=== PATIENT | female | born 1970 | race Caucasian/White ===

== ENCOUNTER 2016-11-22 17:08 | Emergency (ER) | payer OTHER ==
[2016-11-22 17:23] VITALS: TEMP 97.1
--- NOTE | 2016-11-22 17:28 | ED ---
General Adult HPI - General Chief complaint: Extremity Injury, Lower Stated complaint: R ankle injury Time Seen by Provider: 11/22/16 17:19 Source: patient, EMS, RN notes reviewed Mode of arrival: EMS - History of Present Illness Initial comments: This is a 46-year-old female presents with right ankle pain after a fall today. Patient states she was walking down porch stairs when she slipped on the final step and landed on top of her right foot. Patient states she tried to ambulate after this but immediately fell. Patient denies any loss of consciousness, head injury, neck pain or back pain. Patient states the right ankle is very tender. Patient denies any numbness/tingling or weakness to the right ankle. Patient denies any recent fever, chills, shortness breath, chest pain, abdominal pain, nausea/vomiting/diarrhea, back pain, numbness, tingling, hematuria, headache, or visual changes, or any other complaints. - Related Data Home Medications Medication Instructions Recorded Confirmed ALPRAZolam [Xanax] 0.25 mg PO Q6H PRN 11/22/16 11/22/16 Albuterol Inhaler [Ventolin Hfa 1 - 2 puff INHALATION RT-Q6H PRN 11/22/16 Inhaler] Cholecalciferol [Vitamin D3] 400 unit PO DAILY 11/22/16 11/22/16 Cyclobenzaprine [Flexeril] 10 mg PO TID PRN 11/22/16 11/22/16 Docusate [Colace] 100 mg PO BID PRN 11/22/16 11/22/16 Furosemide [Lasix] 20 mg PO BID 11/22/16 11/22/16 Gabapentin 800 mg PO Q6H 11/22/16 11/22/16 Ibuprofen [Motrin] 600 mg PO Q8H PRN 11/22/16 11/22/16 Levothyroxine Sodium [Synthroid] 100 mcg PO DAILY 11/22/16 11/22/16 Omeprazole 20 mg PO DAILY 11/22/16 11/22/16 Potassium Chloride ER [K-Dur 10] 10 meq PO BID 11/22/16 11/22/16 Pravastatin Sodium [Pravachol] 40 mg PO HS 11/22/16 11/22/16 Topiramate [Topamax] 50 mg PO BID 11/22/16 11/22/16 Venlafaxine HCl ER [Effexor Xr] 75 mg PO DAILY 11/22/16 11/22/16 Venlafaxine HCl [Effexor XR] 150 mg PO DAILY 11/22/16 11/22/16 hydrOXYzine PAMOATE [Vistaril] 100 mg PO TID 11/22/16 11/22/16 traMADol HCL [Ultram] 50 mg PO Q6H PRN 11/22/16 11/22/16 traZODone HCL [Desyrel] 200 mg PO HS 11/22/16 11/22/16 Previous Rx's Medication Instructions Recorded HYDROcodone/APAP 7.5-325MG [Austin 1 - 2 tab PO Q6HR #30 tab 11/22/16 7.5-325] Allergies Allergy/AdvReac Type Severity Reaction Status Date / Time acetaminophen AdvReac Itching Verified 11/22/16 18:12 [From Tylenol-Codeine #3] codeine AdvReac Itching Verified 11/22/16 18:12 [From Tylenol-Codeine #3] Penicillins AdvReac Rash/Hives Verified 11/22/16 18:12 Review of Systems ROS Statement: Those systems with pertinent positive or pertinent negative responses have been documented in the HPI. ROS Other: All systems not noted in ROS Statement are negative. Past Medical History Past Medical History: Thyroid Disorder Additional Past Medical History / Comment(s): CHF, fibromyalgia History of Any Multi-Drug Resistant Organisms: None Reported Past Surgical History: Cholecystectomy, Hysterectomy Past Psychological History: Anxiety, Bipolar, Depression, Schizophrenia Smoking Status: Current every day smoker Past Alcohol Use History: None Reported Past Drug Use History: Marijuana General Exam - General Exam Comments Initial Comments: General: The patient is awake and alert, in no distress, and does not appear acutely ill. Neck: The neck is supple, there is no tenderness or JVD. No cervical midline tenderness. Cardiovascular: There is a regular rate and rhythm. No murmur, rub or gallop is appreciated. Respiratory: Lungs are clear to auscultation, respirations are non-labored, breath sounds are equal. No wheezes, stridor, rales, or rhonchi. Musculoskeletal: There is a deformity to the medial aspect of the right ankle. There is tenderness to the medial and lateral aspects of the right ankle into the lateral aspect of the right foot. There is swelling and ecchymosis to the right ankle joint. Dorsalis pedis pulses 2+ bilaterally. Capillary refill is normal at less than 2 seconds. Patient has full range of motion of the right toes. Sensation intact. There is good coloring to the right foot. Neurological: A&O x 3. CN II-XII intact, There are no obvious motor or sensory deficits. Coordination appears grossly intact. Speech is normal. Skin: Skin is warm and dry and no rashes or lesions are noted. Psychiatric: Normal mood and affect. Course Vital Signs 11/22/16 11/22/16 11/22/16 17:15 18:13 19:33 Temperature 97.1 F L Pulse Rate 73 78 68 Respiratory 16 16 18 Rate Blood Pressure 117/81 110/75 146/67 O2 Sat by Pulse 98 98 98 Oximetry 11/22/16 11/22/16 11/22/16 19:38 19:41 19:45 Temperature Pulse Rate 71 75 73 Respiratory 16 16 16 Rate Blood Pressure 117/71 99/51 106/58 O2 Sat by Pulse 98 100 100 Oximetry 11/22/16 11/22/16 19:50 20:38 Temperature 97.1 F L Pulse Rate 76 79 Respiratory 16 16 Rate Blood Pressure 100/56 116/77 O2 Sat by Pulse 100 97 Oximetry Procedures - Procedures Initial comment: Procedural sedation was done before reduction. Risks were explained and consent obtained. Patient was on monitor with respirations being monitored and respiratory therapist was present. Reduction performed by myself with Dr. Clark present. 80 mg propofol were used to achieve sedation. Adequate sedation obtained. No complications. No blood loss. Time out was done before hand to ensure proper extremity. Reduction was done and patient was splinted with short leg posterior ocl splint. Neurovascular was rechecked and intact after splinting. Medical Decision Making - Medical Decision Making This is a 46-year-old female presents with right ankle pain and deformity. On physical exam there is a deformity to the medial aspect of the right ankle. There is tenderness to the medial and lateral aspects of the right ankle and to the lateral aspect of the right foot. There is swelling and ecchymosis to the right ankle joint. Dorsalis pedis pulses 2+ bilaterally. Capillary refill is normal at less than 2 seconds. Patient has full range of motion of the right toes. Sensation intact. There is good coloring to the right foot. Patient arrived by EMS and was given 4 of morphine during her trip. Days of the right foot and right ankle were done and reviewed showing: X-ray right ankle: Bimalleolar fracture of the right ankle with significant lateral and posterior displacement of the talus. Report per Dr. Desir X-ray right foot: Ankle fracture. No fracture identified. Report read by Dr. Desir. Procedural sedation was used and right ankle was reduced. Postreduction films were done and review showing: There is satisfactory reduction of the trimalleolar fracture of the right ankle. Report read by Dr. Desir.. A short leg posterior OCL splint to the right lower extremity was placed. Neurovascular was rechecked and is intact. Patient was instructed to stay non- weightbearing to the right lower extremity. Patient was instructed to rest, ice , elevate and keep splint on until follow-up with orthopedics. Patient will be given crutches. Patient was given a prescription for Austin for pain. Discussed with patient to follow-up with orthopedics tomorrow or as soon as possible Please return to the [facility] symptoms worsen or for any other concerns. Patient was receptive to this plan and patient will be discharged home. I discussed his case with attending physician Dr. Clark who also examined the patient and agrees the plan as stated above. Disposition Clinical Impression: Bimalleolar fracture of right ankle Disposition: HOME SELF-CARE Instructions: Ankle Fracture (ED), Splint Care (ED) Additional Instructions: Please rest, ice, elevate, and use splint for support. Please do not get splint wet. Please stay nonweightbearing to the right lower extremity and use crutches. Please use Austin as prescribed. Medication may make you drowsy please do not drive or drink alcohol using Austin. Please follow up with orthopedics tomorrow or as soon as possible. Please return to the [facility] for any worsening symptoms or for any further concerns. Prescriptions: HYDROcodone/APAP 7.5-325MG [Austin 7.5-325] 1 - 2 tab PO Q6HR #30 tab Referrals: Frederic Guthrie MD [Primary Care Provider] - 1-2 days Fabian Lopez DO [Doctor of Osteopathic Medicine] - 1-2 days
--- NOTE | 2016-11-22 17:50 | XR ---
EXAMINATION TYPE: XR ankle limited RT DATE OF EXAM: 11/22/2016 5:44 PM COMPARISON: NONE HISTORY: Ankle pain TECHNIQUE: 2 views FINDINGS: There is transverse fracture of the medial and lateral malleolus. There is more than 1 cm o f lateral displacement of the talus. There is a 1 cm posterior displacement of the talus as well. The re is no dislocation. IMPRESSION: Bimalleolar fracture of the right ankle with significant lateral and posterior displaceme nt of the talus.
--- NOTE | 2016-11-22 17:51 | XR ---
EXAMINATION TYPE: XR foot limited RT DATE OF EXAM: 11/22/2016 5:44 PM COMPARISON: NONE HISTORY: Pain and fall TECHNIQUE: 2 views FINDINGS: Metatarsals are intact. The toes are intact. Tarsal bones are intact. There is bimalleolar fracture of ankle noted. IMPRESSION: Ankle fracture. No foot fracture identified.
[2016-11-22] MEDS ORDERED: HYDROmorphone 1 MG/ML 1 ML SYRINGE IVP STA (18:02)
[2016-11-22] MEDS ORDERED: ONDANSETRON 4 MG/2 ML VIAL IVP STA (18:02)
[2016-11-22] MEDS ORDERED: SODIUM CHLORIDE 0.9% 1,000 ML IV STA (19:06)
[2016-11-22] MEDS ORDERED: PROPOFOL 10 MG/ML 20 ML VIAL IV STA (19:06)
[2016-11-22 19:41] VITALS: RESP 16
--- NOTE | 2016-11-22 20:20 | XR ---
EXAMINATION TYPE: XR ankle limited RT DATE OF EXAM: 11/22/2016 8:00 PM COMPARISON: Today HISTORY: Fracture Findings: 2 views through the cast were obtained and show a trimalleolar fracture of the ankle. There is a 2 x 1 cm posterior malleolus tip fracture. There is reasonable anatomic reduction of the talus. Fragments are in reasonable anatomic position. There is a few millimeter lateral subluxation of the talus. Conclusion : There is satisfactory reduction of the trimalleolar fracture of the right ankle.
[2016-11-22 20:42] VITALS: BP 116/77; PULSE 79
== END 2016-11-22 20:42 | disposition home or self-care (01) ==
LOC: EC 17:08
DX: S82.841A Displaced bimalleolar fracture of right lower leg, initial encounter for closed fracture (principal); W10.9XXA Fall (on) (from) unspecified stairs and steps, initial encounter; E07.9 Disorder of thyroid, unspecified; M79.7 Fibromyalgia; I50.9 Heart failure, unspecified; F41.9 Anxiety disorder, unspecified; F20.9 Schizophrenia, unspecified; F32.9 Major depressive disorder, single episode, unspecified; Z79.899 Other long term (current) drug therapy; Z88.6 Allergy status to analgesic agent; Z88.5 Allergy status to narcotic agent; Z88.0 Allergy status to penicillin; F17.200 Nicotine dependence, unspecified, uncomplicated
CPT/HCPCS: 99152; 99284; 27810; 73600; 73620; J2405; J1170; J2704

== ENCOUNTER 2016-12-09 11:56 | Observation (INO) | payer OTHER ==
[2016-12-08 08:37] VITALS: BMI 29.1
[~2016-12-09 11:56] MED LIST: ceFAZolin 2 GM in SODIUM CHLORIDE 0.9% 100 ML IVPB ONE
[2016-12-09] MEDS ORDERED: LIDOCAINE 1% 20 ML VIAL (10MG/ML) FOR IV START INTRADERMA ONE (12:50)
[2016-12-09] MEDS ORDERED: LACTATED RINGERS 1,000 ML IV ONE ×2 (12:50→15:03)
[2016-12-09] MEDS ORDERED: DEXAMETHASONE SOD PHOS (MDV) 100 MG/10 ML VIAL IV ONE (12:51)
[2016-12-09] MEDS ORDERED: ONDANSETRON 4 MG/2 ML VIAL IVP ONE (12:51)
[2016-12-09] MEDS ORDERED: MIDAZOLAM 2 MG/2 ML VIAL IV ONE (12:59)
[2016-12-09 13:14] LABS: Potassium 4.8 mmol/L (3.5-5.1)
[2016-12-09 13:26] LABS: Aty Lym Flag Slight; CH 29.3; CHCM 32.6; HCT 42.7 % (34.0-46.0); HDW 2.63; HGB 13.6 gm/dL (11.4-16.0); MCH 28.9 pg (25.0-35.0); MCHC 31.9 g/dL (31.0-37.0); MCV 90.5 fL (80.0-100.0); Mean Platelet Volume 6.7; RBC 4.72 m/uL (3.80-5.40); RDW 15.6 % (11.5-15.5); WBC 7.7 k/uL (3.8-10.6); WBC (Perox) 7.81
[2016-12-09 13:39] LABS: Add Differential Manual Differential
[2016-12-09 13:41] LABS: Manual Review Performed; Nucleated Red Blood Cells 0 /100 WBC (0-0); Total Cells Counted 100
[2016-12-09] MEDS ORDERED: ROPIVACAINE 5 MG/ML 30 ML VIAL ONE (13:52)
[2016-12-09] MEDS ORDERED: fentaNYL (PF) 50 MCG/ML 2 ML AMP ONE (13:52)
[2016-12-09] MEDS ORDERED: PHENYLEPHRINE-0.9% NACL SYG 1 MG/10 ML SYRINGE ONE (13:52)
[2016-12-09] MEDS ORDERED: SUCCINYLCHOLINE CHLORIDE 100 MG/5 ML SYR IV ONE (13:52)
[2016-12-09] MEDS ORDERED: MIDAZOLAM 2 MG/2 ML VIAL ONE (13:52)
[2016-12-09] MEDS ORDERED: LIDOCAINE 1% INJ 10MG/ML (20 ML MDV) ONE (13:52)
[2016-12-09] MEDS ORDERED: HYDROmorphone (PF) 1 MG/ML ONE (13:52)
[2016-12-09] MEDS ORDERED: PROPOFOL 10 MG/ML 20 ML VIAL IV ONE (13:52)
[2016-12-09] MEDS ORDERED: ONDANSETRON 4 MG/2 ML VIAL ONE (13:52)
[2016-12-09] MEDS ORDERED: LIDOCAINE 2%-EPI 1:100,000 20 ML VIAL ONE (13:52)
[2016-12-09] MEDS ORDERED: SODIUM CHLORIDE 0.9% 100 ML with CLINDAMYCIN 600 MG IV ONE ×2 (14:08)
[2016-12-09] MEDS ORDERED: CLINDAMYCIN 600 MG in SODIUM CHLORIDE 0.9% 1,000 ML IRRIGATION ONE (14:35)
[2016-12-09] MEDS ORDERED: diphenhydrAMINE 25 MG CAP PO PRN (16:18)
[2016-12-09] MEDS ORDERED: ONDANSETRON 4 MG/2 ML VIAL IVP PRN (16:18)
[2016-12-09] MEDS ORDERED: TEMAZEPAM 15 MG CAP PO PRN (16:18)
[2016-12-09] MEDS ORDERED: hydrOXYzine PAMOATE 25 MG CAP PO PRN (16:18)
[2016-12-09] MEDS ORDERED: SENNOSIDES-DOCUSATE SODIUM 1 EACH TAB PO PRN (16:18)
[2016-12-09] MEDS ORDERED: HYDROmorphone 1 MG/ML 1 ML SYRINGE IVP PRN (16:18)
[2016-12-09] MEDS ORDERED: HYDROmorphone 1 MG/ML 1 ML SYRINGE IVP ONE ×2 (16:23→16:26)
--- NOTE | 2016-12-09 16:23 | XR ---
EXAMINATION TYPE: XR ankle limited RT 1 view DATE OF EXAM: 12/09/2016 3:49 PM COMPARISON: NONE HISTORY: Post op FINDINGS: There is postsurgical change in near anatomic alignment. There is soft tissue edema and emphysema. IMPRESSION: 1. Postoperative change. Appears in near-anatomic alignment
--- NOTE | 2016-12-09 16:25 | FL ---
EXAMINATION TYPE: FL guidance operating room DATE OF EXAM: 12/09/2016 3:49 PM FLUOROSCOPY Fluoroscopy time of 95 seconds was used during ORIF right ankle. 2 image/s document/s the procedure.
--- NOTE | 2016-12-09 16:42 | P.OP ---
Date of Procedure: 12/09/16 Preoperative Diagnosis: 1. Closed right bimalleolar ankle fracture 2. History of current tobacco use 3. History of current marijuana use 4. Noncompliance Postoperative Diagnosis: 1. Closed right trimalleolar ankle fracture 2. History of current tobacco use 3. History of current marijuana use 4. Noncompliance Procedure(s) Performed: 1. Open reduction internal fixation of right ankle fracture (open reduction and internal fixation of right lateral and medial malleolus, nonoperative management of right posterior malleolus fracture) 2. Manual application of joint stress by physician for radiography Anesthesia: KALPANA Surgeon: Zheng Rao Crewman [employer]1: Beverley Alcala Estimated Blood Loss (ml): 15 IV fluids (ml): 1,000 Pathology: none sent Condition: stable Disposition: PACU Indications for Procedure: The patient is a 46-year-old female with multiple medical problems including current smoking cigarettes and marijuana who sustained a fall little over 2 weeks ago resulting in a closed right trimalleolar ankle fracture. The patient was seen in the emergency department at [facility] where a closed reduction was performed. The patient was discharged with instructions to follow -up in our office several days later. She did not show up for over a week at which point she had been walking in her cast. The cast was visibly dirty and falling apart. The cast was taken down and the patient had multiple fracture blisters laterally. The fracture blisters were unroofed and a Silvadene cream was applied. The patient was also started on Bactrim. She had a closed reduction and splinting performed in the office. The patient was instructed to remain nonweightbearing and elevate her leg. She was seen again in the office this week which point her soft tissue appeared amenable for surgery. Unfortunately the patient has continued to walk on her cast despite being told she is to remain strictly nonweightbearing. I do lengthy discussion with the patient on the potential risks and complication of surgery including but not limited to risks from anesthesia, risk of superficial or deep infection, risk of delayed wound healing, risk of wound necrosis, risk of need for plastic surgery for coverage due to wound breakdown, risk of fracture malunion, risk of fracture nonunion, risk of symptomatically hardware, risk of posttraumatic arthritis, risk of chronic pain, risk of chronic swelling, risk of need for further surgery, and possibly loss of limb. The patient understands that she is at a much higher risk of having a Occasion due to her history of cigarette and marijuana use. She was also instructed that he is to remain strictly nonweightbearing on her right leg. His was stressed multiple times in the office that in the postoperative period she is to remain strictly nonweightbearing for at least 6 weeks. The patient voiced that she doesn't think she'll be able to do this and I again discussed the possibility of having displacement of her fracture, wound healing problems and ultimately loss of her leg. The patient voiced her understanding of this Operative Findings: The distal fibula fracture was comminuted. There were multiple anterior loose fragments in the distal fibula preventing compression and a lag screw at the fracture site. Description of Procedure: The patient is in preoperative holding and the correct right left was marked with my initials. I reviewed the consent form with the patient and all of her questions were answered. The patient was then brought back to the operating room. She was transferred onto the operating room table and all bony prominences were well-padded. A general anesthetic was administered. She was given preoperative antibiotics. A tourniquet was applied to the proximal aspect of the right thigh. All bony prominences were padded and her left leg was secured to the able with egg foam and tape. A bone foam ramp was placed under her right buttock and leg. The patient's right leg was then prepped and draped in the standard sterile fashion. Prior to starting surgery timeout was performed identifying the correct patient, operative extremity, and procedure. The patient's leg was then elevated, exsanguinated with an Esmarch bandage and the tourniquet was inflated to 250 mmHg. A 10 cm incision was marked out over the distal aspect of the fibula. Skin incision was made with 15 blade scalpel and dissection was carried down carefully through the subcutaneous tissue to the periosteum over the distal fibula. The fracture site was circumferentially exposed. There was abundant scar tissue and early callus suggesting that her fracture may have been older then 2 weeks. The fracture site was debrided. There were 3 or 4 large loose fragments of bone anteriorly. The fibula was then pulled out to length and clamped. There was a large void over the anterior distal fibula at the site of comminution. An 8 hole one third tubular plate was then placed over the lateral aspect of the distal fibula. Arturo 35 screw was placed in the fifth hole of the plate just proximal to the fracture bringing the plate down to the lateral aspect of the fibula. Another 35 screw was placed in the most proximal hole of the plate. 235 screws were then placed distally into the distal fragment. C-arm was brought in to verify reduction of the fibula and placement of the hardware. The fibula appeared to be out to length and the medial clear space was reduced. I then proceeded to place 3 syndesmotic screws due to the patient's noncompliance and likelihood of early weightbearing following surgery. 3 fully threaded 3.5 mm screws were placed through both cortices of the tibia. There was a large void in the distal fibula after plating. The previously removed free bony fragments were then ground up with a rongeur and placed in the defect. A 5 cm longitudinal incision was then made over the distal aspect of the medial malleolus. Skin incision was made with a 15 blade scalpel and dissection was carried down carefully to the periosteum over the medial malleolus which was incised longitudinally in line with the skin incision. The fracture site was gently opened and debrided. The wound was irrigated and the joint inspected. On millimeter drill bit was used to create a single hole in the distal metaphysis of the tibia proximal to the fracture. 1 darrick of a pointed reduction clamp was placed in this hole and the other darrick was placed at the tip of the medial malleolus. The reduction clamp was then closed nicely compressing the fracture. K wires were then placed anterior and posterior to the darrick at the distal tip of the medial malleolus. There position was verified with C-arm fluoroscopy and then 3.0 mm cannulated screws were placed. The wires were then removed. Final fluoroscopy shots were taken including a mortise and lateral view. The mortise view showed the fibula out to length, the talus was well reduced within the ankle mortise, there was no widening of the medial clear space or at the incisor a. Hardware appeared to be in except we'll position. Lateral x-ray of the ankle showed the talus centered under the tibial plafond. There was a small minimally displaced posterior malleolus fracture but no posterior subluxation of the talus. Both wounds were then copiously irrigated. The deep periosteal layer over the fibula was closed with a running 0 Vicryl stitch. The deep subcu was closed with interrupted 2-0 Vicryl the skin was closed with a running Monocryl. Medially the deep subcu was reapproximated using 2-0 Vicryl and the skin was closed with a running Monocryl. Dermabond was placed over both incisions followed by sterile dressing. The tourniquet was let down. A sterile dressing consisting of Adaptic 4 x 4 ABDs and web rolls was applied. The drapes were then taken down and a very well-padded bulky Dexter type splint was placed. The patient was then transferred from the operating room table, her anesthetic was reversed, and she was brought to PACU having tolerated the procedure well. At the end of surgery all instrument, sponge, and sharp counts were correct. Plan: The patient will be admitted for IV antibiotics and a social work consultation for placement due to her multiple medical problems and noncompliance. She is remain strictly nonweightbearing on her right leg for at least 6 weeks. She will be treated with Lovenox in-house for DVT prophylaxis and will discharge home on aspirin 325 mg twice a day. We will treat her with 48 hours of IV antibiotics. She can discharge once her pain is controlled and social work is arranged discharge plans.
[2016-12-09 18:03] LABS: Basophils % (A) 0 %; CH 29.4; CHCM 32.7; Eosinophils % (A) 0 %; HCT 38.4 % (34.0-46.0); HDW 2.61; HGB 12.5 gm/dL (11.4-16.0); Luc # (Auto) 0.16; Luc % (Auto) 2; Lymphocytes # (A) 0.9 k/uL (1.0-4.8); Lymphocytes % (A) 11 %; MCH 29.4 pg (25.0-35.0); MCHC 32.5 g/dL (31.0-37.0); MCV 90.5 fL (80.0-100.0); Mean Platelet Volume 6.8; Monocytes # (A) 0.3 k/uL (0-1.0); Monocytes % (A) 3 %; Neutrophils # (A) 6.9 k/uL (1.3-7.7); Neutrophils % (A) 83 %; RBC 4.24 m/uL (3.80-5.40); RDW 15.6 % (11.5-15.5); WBC 8.3 k/uL (3.8-10.6); WBC (Perox) 8.76
[2016-12-09] MEDS ORDERED: CYCLOBENZAPRINE 10 MG TAB PO PRN (18:20)
[2016-12-09] MEDS ORDERED: DOCUSATE 100 MG CAP PO PRN (18:20)
[2016-12-09] MEDS ORDERED: ALPRAZolam 0.25 MG TAB PO PRN (18:20)
[2016-12-09] MEDS ORDERED: HYDROcodone/APAP 7.5-325MG 1 EACH TAB PO PRN (18:24)
[2016-12-09] MEDS ORDERED: ALBUTEROL NEBULIZED 2.5 MG/3 ML INHALATION PRN (18:30)
[2016-12-09] MEDS: POTASSIUM CHLORIDE ER 10 MEQ TAB.ER.PRT PO SCH (20:06)
[2016-12-09] MEDS: traZODone HCL 100 MG TAB PO SCH (20:06)
[2016-12-09] MEDS: PRAVASTATIN SODIUM 40 MG TAB PO SCH (20:06)
[2016-12-09] MEDS: FUROSEMIDE 20 MG TAB PO SCH (20:06)
[2016-12-09] MEDS: TOPIRAMATE 25 MG TAB PO SCH (20:06)
[2016-12-09] MEDS: GABAPENTIN 400 MG CAP PO SCH (20:06)
[2016-12-09] MEDS: traMADol 50 MG TAB PO SCH ×2 (20:07→22:08)
[2016-12-09] MEDS: LACTATED RINGERS 1,000 ML IV SCH (20:09)
[2016-12-09] MEDS: hydrOXYzine PAMOATE 25 MG CAP PO SCH (21:58)
[2016-12-10] MEDS: CLINDAMYCIN 900 MG in DEXTROSE 5% IN WATER 50 ML IVPB SCH ×8 (01:04→23:59)
[2016-12-10] MEDS: GABAPENTIN 400 MG CAP PO SCH ×6 (01:15→22:26)
[2016-12-10] MEDS: HYDROcodone/APAP 7.5-325MG 1 EACH TAB PO SCH ×2 (01:15→07:28)
[2016-12-10] MEDS: LACTATED RINGERS 1,000 ML IV SCH ×2 (03:45→19:54)
[2016-12-10] MEDS: LEVOTHYROXINE 100 MCG TAB PO SCH (06:26)
[2016-12-10] MEDS: PANTOPRAZOLE 40 MG TABLET PO SCH (07:29)
[2016-12-10] MEDS: TOPIRAMATE 25 MG TAB PO SCH ×2 (09:15→21:16)
[2016-12-10] MEDS: VENLAFAXINE HCL ER 150 MG CAP PO SCH (09:16)
[2016-12-10] MEDS: CALCIUM CARBONATE 500 MG CHEWABLE PO SCH ×3 (09:16→21:16)
[2016-12-10] MEDS: FUROSEMIDE 20 MG TAB PO SCH ×2 (09:16→21:16)
[2016-12-10] MEDS: POTASSIUM CHLORIDE ER 10 MEQ TAB.ER.PRT PO SCH ×2 (09:16→21:16)
[2016-12-10] MEDS: CHOLECALCIFEROL 400 UNIT TAB PO SCH (09:16)
[2016-12-10] MEDS: ENOXAPARIN 40 MG/0.4 ML SYRINGE SQ SCH (09:17)
[2016-12-10] MEDS: traMADol 50 MG TAB PO SCH ×4 (09:17→22:27)
[2016-12-10] MEDS: VENLAFAXINE HCL ER 75 MG CAP PO SCH (09:18)
--- NOTE | 2016-12-10 09:24 | P.PN ---
Subjective Patient has no complaints this morning. Her pain is well-controlled in her right ankle. She denies chest pain or shortness of breath. Objective - Vital Signs Vital signs: Vital Signs Temp 97.5 F L 12/10/16 07:54 Pulse 94 12/10/16 07:54 Resp 16 12/10/16 07:54 BP 111/56 12/10/16 07:54 Pulse Ox 96 12/10/16 07:54 Intake & Output 12/09/16 12/10/16 12/10/16 18:59 06:59 18:59 Intake Total 2308 2200 240 Output Total 15 850 Balance 2293 1350 240 Weight 78 kg Intake: IV 2308 1300 Clindamycin 900 mg In 100 Dextrose 5% in Water 50 ml @ 100 mls/hr IVPB Q8HR TR Rx#:[id number] Lactated Ringers 1,000 ml 1200 @ 100 mls/hr IV .Q10H TR Rx#:[id number] Intake, IV Titration 400 Amount Lactated Ringers 1,000 ml 400 @ 100 mls/hr IV .Q10H TR Rx#:[id number] Oral 500 240 Output: Urine 850 Estimated Blood Loss 15 Other: Voiding Method Bedpan # Voids 1 1 - Exam Patient is in no apparent distress and is alert and oriented. On exam the right leg she has a clean-appearing bulky Dexter splint. Her toes are warm and well perfused with brisk capillary refill. She can actively plantarflex and dorsiflex her toes. She has no pain with passive range of motion of her toes. Sensation is slightly decreased and her toes consistent with having a popliteal nerve block. - Labs CBC & Chem 7: 12/09/16 17:47 12/09/16 12:45 Labs: Abnormal Lab Results - Last 24 Hours (Table) 12/09/16 12/09/16 Range/Units 12:45 17:47 RDW 15.6 H 15.6 H (11.5-15.5) % Plt Count 637 H 532 H (150-450) k/uL Lymphocytes # 0.9 L (1.0-4.8) k/uL Assessment and Plan (1) Trimalleolar fracture of ankle, closed Status: Acute Plan: Postoperative day #1 status post right ankle ORIF, doing well 1. Strict nonweightbearing right lower extremity, ice and elevate 2. 48 hours postoperative antibiotics 3. DVT prophylaxis with Lovenox in-house, discharge home on aspirin 325 mg twice a day 2 weeks 4. Physical therapy for crutch training 5. Social work for discharge planning due to patient's noncompliance and unreliable home situation 6. Calcium carbonate 500 mg 3 times a day and vitamin D3 2000 units daily for bone health area and vitamin D lab pending 7. Anticipate the patient will likely be in the hospital over the weekend awaiting social work evaluation and discharge planning 8. Encouraged smoking cessation
[2016-12-10] MEDS: hydrOXYzine PAMOATE 25 MG CAP PO SCH ×3 (09:25→22:27)
[2016-12-10] MEDS: HYDROmorphone 1 MG/ML 1 ML SYRINGE IVP PRN ×4 (10:41→23:23)
[2016-12-10] MEDS: NICOTINE 21MG/24HR PATCH TRANSDERM SCH (12:51)
[2016-12-10] MEDS: CHOLECALCIFEROL 1,000 UNIT TAB PO SCH (13:21)
[2016-12-10] MEDS: HYDROcodone/APAP 7.5-325MG 1 EACH TAB PO PRN ×2 (13:22→20:00)
--- NOTE | 2016-12-10 14:34 | CONS ---
DATE OF CONSULTATION: REASON FOR CONSULTATION: Management of chronic medical conditions. HISTORY OF PRESENT ILLNESS: Ms. Mi is a 46-year-old female with the past medical history of congestive heart failure, fibromyalgia, GERD, thyroid disorder admitted to the hospital for recheck of her right ankle fracture. The patient was evaluated by orthopedics and she had a right ankle open reduction internal fixation. She is postop day one. She had trimalleolar ankle fracture. The patient does have a past medical history of congestive heart failure, fibromyalgia and thyroid disorder. She states that she is compliant with her medications. Currently she is lying comfortably in the bed, appears to be in no acute distress. She does not have any complaints. REVIEW OF SYSTEMS: CONSTITUTIONAL: Denies having any fever, chills or rigors. RESPIRATORY: No cough. No difficulty in breathing. CARDIAC: No chest pain. No palpitations. GI: No abdominal pain, nausea, vomiting, or diarrhea. : No dysuria or hematuria. HEMATOLOGICAL: No history of easy bruising or recurrent infections. IMMUNOLOGY/ALLERGY: No history of allergies. MUSCULOSKELETAL: Patient has a right ankle fracture. ENDOCRINE: Positive for thyroid disorder. All 13 review of systems are done and negative except for the ones mentioned in the HPI. Past medical history is positive for congestive heart failure, fibromyalgia, GERD/reflux, thyroid disorder. PAST SURGICAL HISTORY: Cholecystectomy, hysterectomy. PAST PSYCHOLOGICAL HISTORY: Has history of anxiety, bipolar disorder, depression and schizophrenia. SOCIAL HISTORY: She is a current everyday smoker and smokes almost 1 pack a day and has been smoking for the past 30 years and uses marijuana occasionally. Family history is positive for hypertension. Allergies to PENICILLIN, ACETAMINOPHEN and CODEINE. PATIENT'S HOME MEDICATIONS: She is on potassium chloride 10 mEq p.o. b.i.d., trazodone 200 mg p.o. q.h.s., hydroxyzine 100 mg p.o. 3 times a day, omeprazole 20 mg p.o. daily, Lasix 20 mg p.o. b.i.d., pravastatin 40 mg p.o. q.h.s., levothyroxine 100 mcg p.o. daily, gabapentin 800 mg p.o. q.6 hours, Colace 100 mg p.o. b.i.d., tramadol 50 mg p.o. q.h.s., topiramate 50 mg p.o. b.i.d., cholecalciferol 400 units p.o. . daily, albuterol 1 puff q.6 hours p.r.n. for shortness of breath, ibuprofen 600 mg p.o. q.6 hours p.r.n. for pain, cyclobenzaprine 10 mg p.o. 3 times a day p.r.n. for muscle spasm, Xanax 0.25 mg p.o. q.6 hours p.r.n. for anxiety, venlafaxine, Effexor, 150 mg capsule p.o. q.a.m. and [place] 7.5/325 one to two tablets q.6 hours p.r.n. for pain. On examination, patient's vital signs temperature 97.5, heart rate 94, respiratory rate 16, blood pressure 111/56, saturating at 96% on room air. GENERAL EXAMINATION: The patient appears to be in no acute distress. HEAD: Atraumatic, normocephalic. EYES: Pupils round and reactive to light. No pallor. No icterus. NECK: No JVD. No thyromegaly. CARDIOVASCULAR: S1 and S2 heard. RESPIRATORY: Positive for breath sounds bilaterally. The patient has bilateral lower lobe crackles. No wheezes. GI: Abdomen is soft, nontender, no organomegaly. Bowel sounds are positive. EXTREMITIES: No edema. Right lower extremity is in a cast SKIN: Patient has flea bites all over her upper extremities. Patient's labs: White count of 8.3, hemoglobin is 12.5, platelets of 532. Sodium 141, potassium 4.8, chloride 103, bicarb 24, BUN not available. ASSESSMENT AND PLAN: 1. Status post right ankle open reduction internal fixation postoperative day one. 2. History of congestive heart failure with unknown ejection fraction. 3. Fibromyalgia. 4. Gastroesophageal reflux disease. 5. Thyroid disorder. 6. Anxiety. 7. Bipolar disorder. 8. Depression. 9. Schizophrenia. 10. Chronic nicotine dependence. PLAN: The patient has bilateral basilar crackles so will discontinue her IV fluids and will resume her home medications and DVT prophylaxis as per primary care team management. Will continue to follow the patient. Thank you for the consult.
[2016-12-10] MEDS: traZODone HCL 100 MG TAB PO SCH (21:16)
[2016-12-10] MEDS: PRAVASTATIN SODIUM 40 MG TAB PO SCH (21:16)
[2016-12-11] MEDS: HYDROcodone/APAP 7.5-325MG 1 EACH TAB PO SCH (02:48)
[2016-12-11] MEDS: LACTATED RINGERS 1,000 ML IV SCH (04:20)
[2016-12-11] MEDS: HYDROcodone/APAP 7.5-325MG 1 EACH TAB PO PRN ×4 (04:21→20:33)
[2016-12-11] MEDS: HYDROmorphone 1 MG/ML 1 ML SYRINGE IVP PRN ×2 (06:01→11:05)
[2016-12-11] MEDS: LEVOTHYROXINE 100 MCG TAB PO SCH (06:03)
[2016-12-11 07:45] LABS: Anion Gap 7 mmol/L; Blood Urea Nitrogen 8 mg/dL (7-17); Calcium 8.8 mg/dL (8.4-10.2); Carbon Dioxide 29 mmol/L (22-30); Chloride 103 mmol/L (98-107); Glucose 108 mg/dL (74-99); Non-African American GFR(MDRD) >60 (>60 ml/min/1.73 sqM); Potassium 4.2 mmol/L (3.5-5.1); Sodium 139 mmol/L (137-145)
[2016-12-11 08:12] LABS: Basophils # (A) 0.1 k/uL (0-0.2); Basophils % (A) 1 %; CH 29.2; CHCM 31.7; Eosinophils # (A) 0.3 k/uL (0-0.7); Eosinophils % (A) 3 %; HCT 33.3 % (34.0-46.0); HDW 2.54; HGB 10.4 gm/dL (11.4-16.0); Hypochromasia Slight; Luc # (Auto) 0.43; Luc % (Auto) 4; Lymphocytes # (A) 2.6 k/uL (1.0-4.8); Lymphocytes % (A) 26 %; MCHC 31.4 g/dL (31.0-37.0); MCV 92.5 fL (80.0-100.0); Monocytes # (A) 0.9 k/uL (0-1.0); Monocytes % (A) 9 %; Neutrophils # (A) 5.8 k/uL (1.3-7.7); Neutrophils % (A) 58 %; RDW 15.6 % (11.5-15.5); WBC (Perox) 10.52
[2016-12-11] MEDS: VENLAFAXINE HCL ER 150 MG CAP PO SCH (09:20)
[2016-12-11] MEDS: CALCIUM CARBONATE 500 MG CHEWABLE PO SCH ×3 (09:20→20:32)
[2016-12-11] MEDS: POTASSIUM CHLORIDE ER 10 MEQ TAB.ER.PRT PO SCH ×2 (09:20→20:31)
[2016-12-11] MEDS: VENLAFAXINE HCL ER 75 MG CAP PO SCH (09:20)
[2016-12-11] MEDS: CHOLECALCIFEROL 400 UNIT TAB PO SCH (09:20)
[2016-12-11] MEDS: PANTOPRAZOLE 40 MG TABLET PO SCH (09:20)
[2016-12-11] MEDS: TOPIRAMATE 25 MG TAB PO SCH ×2 (09:20→20:32)
[2016-12-11] MEDS: NICOTINE 21MG/24HR PATCH TRANSDERM SCH (09:20)
[2016-12-11] MEDS: ENOXAPARIN 40 MG/0.4 ML SYRINGE SQ SCH (09:20)
[2016-12-11] MEDS: FUROSEMIDE 20 MG TAB PO SCH ×2 (09:21→20:32)
--- NOTE | 2016-12-11 09:55 | P.PN ---
Subjective Principal diagnosis: Status post right ankle ORIF This is a 46 year-old female post right ankle ORIF. This is post-op day 2. The patient was evaluated at the bedside today. The patient denies nausea, vomiting, abdominal pain, shortness of breath, and chest pain this morning. She states her pain is controlled at this time. The patient was up with physical therapy this morning. Objective - Vital Signs Vital signs: Vital Signs Temp 98.3 F 12/11/16 07:47 Pulse 89 12/11/16 07:47 Resp 14 12/11/16 07:47 BP 95/70 12/11/16 07:47 Pulse Ox 97 12/11/16 07:47 Intake & Output 12/10/16 12/11/16 12/11/16 18:59 06:59 18:59 Intake Total 1180 900 240 Balance 1180 900 240 Intake: IV 100 Clindamycin 900 mg In 100 Dextrose 5% in Water 50 ml @ 100 mls/hr IVPB Q8HR [facility] Rx#:[id number] Oral 1180 800 240 Other: Voiding Method Bedpan Bedpan # Voids 1 3 - Exam The patient does not appear in acute distress. Alert and orientated x3. Dressing and splint is clean, dry and intact. She is able to wiggle her toes freely. No pain on passive ROM of her toes. Sensation and circulatory status is intact. - Labs CBC & Chem 7: 12/11/16 06:42 12/11/16 06:42 Labs: Abnormal Lab Results - Last 24 Hours (Table) 12/11/16 12/11/16 Range/Units 06:42 06:42 RBC 3.60 L (3.80-5.40) m/uL Hgb 10.4 L (11.4-16.0) gm/dL Hct 33.3 L (34.0-46.0) % RDW 15.6 H (11.5-15.5) % Plt Count 483 H (150-450) k/uL Glucose 108 H (74-99) mg/dL Assessment and Plan (1) Trimalleolar fracture of ankle, closed Status: Acute (2) Status post ORIF of fracture of ankle Status: Acute Plan: 1. Continue pain control 2. Anticoagulation Lovenox while in hospital then transition to Aspirin after discharge 3. Continue physical therapy and ambulation, Strict non-weightbearing right lower extremity 4. Anticipate discharge plan pending, social work consult requested due to patient's noncompliance and unreliable home situation. Discharge likely on Monday.
[2016-12-11] MEDS: CHOLECALCIFEROL 1,000 UNIT TAB PO SCH (12:45)
[2016-12-11] MEDS: GABAPENTIN 400 MG CAP PO SCH ×2 (12:45→17:54)
[2016-12-11] MEDS: hydrOXYzine PAMOATE 25 MG CAP PO SCH ×2 (12:45→17:54)
[2016-12-11] MEDS: traMADol 50 MG TAB PO SCH ×3 (12:45→17:54)
--- NOTE | 2016-12-11 14:11 | PN ---
INTERVAL HISTORY: Ms. Mi is a 46-year-old female with a past medical history of congestive heart failure, fibromyalgia, GERD, thyroid disorder admitted to the hospital for her right ankle fracture. Patient had an open reduction and internal fixation done by orthopedics yesterday. The patient is postop day two. She had trimalleolar ankle fracture. Today, the patient is sitting up in the bed, appears to be no acute distress. She does not have any active complaints. The patient did get out of the bed with the help of crutches and used the restroom. REVIEW OF SYSTEMS: CONSTITUTIONAL: Denies any fevers, chills or rigors. RESPIRATORY: No cough. No difficulty in breathing. CARDIAC: No chest pain or palpitations. : No dysuria or hematuria. Patient's medications have been reviewed. On examination, patient's vital signs temperature 98.1, heart rate 93, respiratory rate 18, blood pressure 120/74, saturating 93% on 2 liters of nasal cannula. GENERAL EXAMINATION: Patient appears to be no acute distress. HEAD: Atraumatic and normocephalic. EYES: Pupils round and reactive to light. No pallor. No icterus. NECK: No JVD. No thyromegaly. CARDIOVASCULAR: S1, S2 positive. RESPIRATORY: Breath sounds bilaterally. No wheezes. GI: Abdomen is soft. Bowel sounds positive. EXTREMITIES: No edema. Right lower extremity is in a cast. SKIN: Patient has a few bite butcher all over her upper extremities. Patient's labs: White count of 10, hemoglobin 10.4, platelets of 483. Sodium 139, potassium 4.0, chloride 103, bicarb 29, BUN 8, creatinine 0.90. ASSESSMENT AND PLAN: 1. Status post right angle open reduction and internal fixation postop day 2. 2. History of congestive heart failure with unknown ejection fraction. No signs of decompensation. 3. Fibromyalgia. 4. Gastroesophageal reflux disease. 5. Thyroid disorder. 6. Anxiety. 7. Bipolar disorder. 8. Depression. 9. Schizophrenia. 10. Chronic dependence. PLAN: Continue with the current medications regimen. DVT prophylaxis as per primary care team management and further recommendations depending on the progress of the patient. MTDD
[2016-12-11 16:23] VITALS: RESP 16
[2016-12-11] MEDS: traZODone HCL 100 MG TAB PO SCH (20:32)
[2016-12-11] MEDS: PRAVASTATIN SODIUM 40 MG TAB PO SCH (20:32)
[2016-12-12] MEDS: HYDROcodone/APAP 7.5-325MG 1 EACH TAB PO PRN ×2 (02:56→09:09)
[2016-12-12] MEDS: GABAPENTIN 400 MG CAP PO SCH ×3 (02:56→12:43)
[2016-12-12] MEDS: traMADol 50 MG TAB PO SCH ×3 (04:04→12:43)
[2016-12-12] MEDS: hydrOXYzine PAMOATE 25 MG CAP PO SCH ×2 (04:04→09:07)
[2016-12-12] MEDS: LEVOTHYROXINE 100 MCG TAB PO SCH (06:41)
[2016-12-12 07:39] VITALS: BP 113/65; PULSE 89; TEMP 98.2
[2016-12-12] MEDS: ENOXAPARIN 40 MG/0.4 ML SYRINGE SQ SCH (09:06)
[2016-12-12] MEDS: CALCIUM CARBONATE 500 MG CHEWABLE PO SCH (09:06)
[2016-12-12] MEDS: POTASSIUM CHLORIDE ER 10 MEQ TAB.ER.PRT PO SCH (09:07)
[2016-12-12] MEDS: FUROSEMIDE 20 MG TAB PO SCH (09:07)
[2016-12-12] MEDS: NICOTINE 21MG/24HR PATCH TRANSDERM SCH (09:08)
[2016-12-12] MEDS: TOPIRAMATE 25 MG TAB PO SCH (09:08)
[2016-12-12] MEDS: VENLAFAXINE HCL ER 150 MG CAP PO SCH (09:08)
[2016-12-12] MEDS: CHOLECALCIFEROL 400 UNIT TAB PO SCH (09:08)
[2016-12-12] MEDS: VENLAFAXINE HCL ER 75 MG CAP PO SCH (09:09)
[2016-12-12] MEDS: CHOLECALCIFEROL 1,000 UNIT TAB PO SCH (12:43)
[2016-12-12] MEDS: PANTOPRAZOLE 40 MG TABLET PO SCH (12:43)
--- NOTE | 2016-12-12 12:56 | P.DS ---
Providers Date of admission: 12/10/16 19:45 Expected date of discharge: 12/12/16 Attending physician: Zheng Rao Consults: 12/09/16 17:24 Consult Physician Routine Consulting Provider: Walt Guzman Consult Reason/Comments: medical management Do you want consulting provider notified?: Already Contacted Primary care physician: Frederic Guthrie - Discharge Diagnosis(es) (1) Bimalleolar fracture of right ankle Patient was admitted to the OR on 12/09/2016 to undergo ORIF of right bimalleolar fracture. She underwent the above procedure which she tolerated well without complication. Her postoperative hospital course has remained without complication. On day of discharge she desires discharge to home. On day of discharge she is afebrile, vital signs stable, labs within acceptable range. Her wound is her splint and bandages intact and there is no active bleeding or drainage. Hhe is neurovascularly intact. She has good perfusion throughout her right lower extremity, she is able to wiggle her toes. She has sensation intact in all toes and less than 2 second cap refill. Her abdomen is soft and nontender. On day of discharge she denies calf pain or abdominal pain. She is tolerating by mouth meds and diet, voiding without difficulty and positive flatus. She is denying any new complaints. Review of systems is negative for fever, chills, chest pain, sugars breath, nausea, vomiting, dizziness, headaches, slurred speech, numbness, tingling or other. Current Visit: No Status: Acute Priority: Medium Procedures: ORIF right bimalleolar fracture Patient Condition at Discharge: Good Plan - Discharge Summary New Discharge Prescriptions: Aspirin 325 mg PO BID #30 tab Docusate [Colace] 100 mg PO BID #60 capsule HYDROcodone/APAP 7.5-325MG [[place] 7.5-325] 1 - 2 tab PO Q6HR PRN #60 tab PRN Reason: Pain Discharge Medication List ALPRAZolam [Xanax] 0.25 mg PO Q6H PRN 11/22/16 [History] Albuterol Inhaler [Ventolin Hfa Inhaler] 1 - 2 puff INHALATION RT-Q6H PRN [History] Cholecalciferol [Vitamin D3] 400 unit PO DAILY 11/22/16 [History] Cyclobenzaprine [Flexeril] 10 mg PO TID PRN 11/22/16 [History] Docusate [Colace] 100 mg PO BID PRN 11/22/16 [History] Furosemide [Lasix] 20 mg PO BID 11/22/16 [History] Gabapentin 800 mg PO Q6H 11/22/16 [History] HYDROcodone/APAP 7.5-325MG [[place] 7.5-325] 1 - 2 tab PO Q6HR #30 tab 11/22/16 [ Rx] Ibuprofen [Motrin] 600 mg PO Q8H PRN 11/22/16 [History] Levothyroxine Sodium [Synthroid] 100 mcg PO DAILY 11/22/16 [History] Omeprazole 20 mg PO DAILY 11/22/16 [History] Potassium Chloride ER [K-Dur 10] 10 meq PO BID 11/22/16 [History] Pravastatin Sodium [Pravachol] 40 mg PO HS 11/22/16 [History] Topiramate [Topamax] 50 mg PO BID 11/22/16 [History] Venlafaxine HCl ER [Effexor Xr] 75 mg PO QAM 11/22/16 [History] Venlafaxine HCl [Effexor XR] 150 mg PO QAM 11/22/16 [History] hydrOXYzine PAMOATE [Vistaril] 100 mg PO TID 11/22/16 [History] traMADol HCL [Ultram] 50 mg PO Q6H PRN 11/22/16 [History] traZODone HCL [Desyrel] 200 mg PO HS 11/22/16 [History] Aspirin 325 mg PO BID #30 tab 12/09/16 [Rx] Docusate [Colace] 100 mg PO BID #60 capsule 12/12/16 [Rx] HYDROcodone/APAP 7.5-325MG [[place] 7.5-325] 1 - 2 tab PO Q6HR PRN #60 tab [Rx] Follow up Appointment(s)/Referral(s): [facility], [NON-STAFF] - Zheng Rao MD [Medical Doctor] - 2 Weeks (Follow up appointment has been made for Dec.23 at 9:[address] Rao.) Patient Instructions/Handouts: ORIF of an Ankle Fracture (DC), Non Weight Bearing Activity (GEN) Activity/Diet/Wound Care/Special Instructions: Strict NWB RLE w walker Maintain splint RLE Keep clean and dry Take meds as directed F/U with Dr. Rao in office Discharge Disposition: HOME SELF-CARE
== END 2016-12-12 13:39 | disposition home or self-care (01) ==
LOC: OR 11:56 → 3OBS 16:13 → OR 12-10 19:45 → 3OBS 12-10 19:45
PROVIDERS: ADMIT Orthopaedic Surgery; ATTEND Orthopaedic Surgery
DX: S82.851A Displaced trimalleolar fracture of right lower leg, initial encounter for closed fracture (principal); W19.XXXA Unspecified fall, initial encounter; Z91.19 Patient's noncompliance with other medical treatment and regimen; E07.9 Disorder of thyroid, unspecified; F12.90 Cannabis use, unspecified, uncomplicated; F17.210 Nicotine dependence, cigarettes, uncomplicated; F20.9 Schizophrenia, unspecified; F31.9 Bipolar disorder, unspecified; F41.9 Anxiety disorder, unspecified; K21.9 Gastro-esophageal reflux disease without esophagitis; M79.7 Fibromyalgia; Z88.0 Allergy status to penicillin; Z79.899 Other long term (current) drug therapy; Z88.6 Allergy status to analgesic agent; Z88.5 Allergy status to narcotic agent
CPT/HCPCS: 94760; 97116 ×2; 97161; 80051; 80048; 85025 ×2; 82306; 73600; 27822; G0378 ×3; C1713; S4990 ×2; J2250; J2405; J2001; J1650 ×3; J3010; J1170 ×3; J1100; J2795; J2370; J0330; J2704; 96375; 96376

== ENCOUNTER 2017-02-14 18:59 | Emergency (ER) | payer OTHER ==
[2017-02-14] MEDS ORDERED: HYDROcodone/APAP 7.5-325MG 1 EACH TAB PO ONE (19:35)
[2017-02-14 19:36] VITALS: BP 130/80; PULSE 80; RESP 18; TEMP 98.7
--- NOTE | 2017-02-14 19:37 | ED ---
Lower Extremity Injury HPI - General Stated Complaint: Foot Pain Time Seen by Provider: 02/14/17 19:26 Source: patient, RN notes reviewed Mode of arrival: ambulatory Limitations: no limitations - History of Present Illness Initial Comments: 46-year-old female presents emergency Department with chief complaint of right foot, ankle pain. Patient states that she had surgery a few months ago by Dr. Rao. Patient states she had a trimalleolar fracture with pins placement. Patient states that she's been having increased pain last 2 weeks saw him last week and which they told her that having was fine. Patient states is more swelling that she's had before. Patient states sometimes pain radiates up into her calf. She does take an 81 mg aspirin daily. Patient denies any history of DVT. Patient denies any new trauma. - Related Data Home Medications Medication Instructions Recorded Confirmed ALPRAZolam [Xanax] 0.25 mg PO Q6H PRN 11/22/16 12/11/16 Albuterol Inhaler [Ventolin Hfa 1 - 2 puff INHALATION RT-Q6H PRN 11/22/16 Inhaler] Cholecalciferol [Vitamin D3] 400 unit PO DAILY 11/22/16 12/11/16 Cyclobenzaprine [Flexeril] 10 mg PO TID PRN 11/22/16 12/11/16 Docusate [Colace] 100 mg PO BID PRN 11/22/16 12/11/16 Furosemide [Lasix] 20 mg PO BID 11/22/16 12/11/16 Gabapentin 800 mg PO Q6H 11/22/16 12/11/16 Ibuprofen [Motrin] 600 mg PO Q8H PRN 11/22/16 12/11/16 Levothyroxine Sodium [Synthroid] 100 mcg PO DAILY 11/22/16 12/11/16 Omeprazole 20 mg PO DAILY 11/22/16 12/11/16 Potassium Chloride ER [K-Dur 10] 10 meq PO BID 11/22/16 12/11/16 Pravastatin Sodium [Pravachol] 40 mg PO HS 11/22/16 12/11/16 Topiramate [Topamax] 50 mg PO BID 11/22/16 12/11/16 Venlafaxine HCl ER [Effexor Xr] 75 mg PO QAM 11/22/16 12/11/16 Venlafaxine HCl [Effexor XR] 150 mg PO QAM 11/22/16 12/11/16 hydrOXYzine PAMOATE [Vistaril] 100 mg PO TID 11/22/16 12/11/16 traMADol HCL [Ultram] 50 mg PO Q6H PRN 11/22/16 12/11/16 traZODone HCL [Desyrel] 200 mg PO HS 11/22/16 12/11/16 Previous Rx's Medication Instructions Recorded HYDROcodone/APAP 7.5-325MG [[place] 1 - 2 tab PO Q6HR #30 tab 11/22/16 7.5-325] Aspirin 325 mg PO BID #30 tab 12/09/16 Docusate [Colace] 100 mg PO BID #60 capsule 12/12/16 HYDROcodone/APAP 7.5-325MG [[place] 1 - 2 tab PO Q6HR PRN #60 tab 12/12/16 7.5-325] Allergies Allergy/AdvReac Type Severity Reaction Status Date / Time Penicillins Allergy Rash/Hives Verified 02/14/17 19:27 acetaminophen AdvReac Itching Verified 02/14/17 19:27 [From Tylenol-Codeine #3] codeine AdvReac Itching Verified 02/14/17 19:27 [From Tylenol-Codeine #3] Review of Systems ROS Statement: Those systems with pertinent positive or pertinent negative responses have been documented in the HPI. ROS Other: All systems not noted in ROS Statement are negative. Past Medical History Past Medical History: Heart Failure, Fibromyalgia, GERD/Reflux, Thyroid Disorder Additional Past Medical History / Comment(s): FX RIGHT ANKLE, CURRENT SPLINT, NON WT BEARING History of Any Multi-Drug Resistant Organisms: None Reported Past Surgical History: Cholecystectomy, Hysterectomy Past Anesthesia/Blood Transfusion Reactions: No Reported Reaction Past Psychological History: Anxiety, Bipolar, Depression, Schizophrenia Smoking Status: Current every day smoker Past Alcohol Use History: None Reported Additional Past Alcohol Use History / Comment(s): SMOKES 1/2-3/4 PPD. STARTED SMOKING AGE 16 (1985) Past Drug Use History: Marijuana Additional Drug Use History / Comment(s): INSTRUCTED NOT TO USE 24 HRS PRIOR TO PROCEDURE - Past Family History Mother Family Medical History: No Reported History General Exam General appearance: alert, in no apparent distress Respiratory exam: Present: normal lung sounds bilaterally. Absent: respiratory distress, wheezes, rales, rhonchi, stridor Cardiovascular Exam: Present: regular rate, normal rhythm, normal heart sounds. Absent: systolic murmur, diastolic murmur, rubs, gallop, clicks Extremities exam: Present: other (Right foot, ankle there is moderate swelling noted, neurovascular intact capillary refill less than 2 seconds patient's full sensation there is old surgical scar well-healed no erythema no warmth there is no calf tenderness) Skin exam: Present: warm, dry Course Vital Signs 02/14/17 19:27 Temperature 98.7 F Pulse Rate 80 Respiratory 18 Rate Blood Pressure 130/80 O2 Sat by Pulse 99 Oximetry Medical Decision Making - Medical Decision Making 46-year-old female presents emergency Department chief complaint of leg pain, swelling. There is no acute fracture or DVT. Patient has postsurgical changes that appear unchanged. Patient has just seen or icteric surgeon who told having was normal. Patient has follow-up appointment. Disposition Clinical Impression: Status post ORIF of fracture of ankle, Ankle pain, Ankle swelling Disposition: HOME SELF-CARE Condition: Stable Instructions: Arthralgia (ED) Additional Instructions: Please return to the Emergency Department if symptoms worsen or any other concerns. Referrals: Frederic Guthrie MD [Primary Care Provider] - 1-2 days Zheng Rao MD [Medical Doctor] - 1-2 days Time of Disposition: 20:25
--- NOTE | 2017-02-14 19:57 | XR ---
EXAMINATION TYPE: XR ankle complete RT DATE OF EXAM: 02/14/2017 7:52 PM COMPARISON: 11/22/2016 HISTORY: Ankle pain TECHNIQUE: 3 views FINDINGS: There is a plate with screws fixing the distal fibula. There is 2 screws fixing the medial malleolus. Ankle mortise is anatomic. There is osteopenia. IMPRESSION: Anatomic reduction. Mild osteopenia and soft tissue swelling. Fracture lines are still vi sible.
--- NOTE | 2017-02-14 20:31 | US ---
EXAMINATION TYPE: US venous doppler duplex LE RT DATE OF EXAM: 02/14/2017 8:15 PM COMPARISON: NONE CLINICAL HISTORY: Pain. Right foot swelling SIDE PERFORMED: Right TECHNIQUE: The bilateral lower extremity deep venous system is examined utilizing real time linear a rray sonography with graded compression, doppler sonography and color-flow sonography. VESSELS IMAGED: External Iliac Vein (EIV) Common Femoral Vein Deep Femoral Vein Greater Saphenous Vein * Femoral Vein Popliteal Vein Small Saphenous Vein * Proximal Calf Veins (* superficial vessels) Right Leg: Negative for DVT IMPRESSION: Normal exam. No evidence of deep venous thrombosis in the right leg.
== END 2017-02-14 20:28 | disposition home or self-care (01) ==
LOC: EC 18:59
DX: M25.471 Effusion, right ankle (principal); Z96.661 Presence of right artificial ankle joint; K21.9 Gastro-esophageal reflux disease without esophagitis; M79.7 Fibromyalgia; E07.9 Disorder of thyroid, unspecified; I50.9 Heart failure, unspecified; F20.9 Schizophrenia, unspecified; F31.9 Bipolar disorder, unspecified; F41.9 Anxiety disorder, unspecified; F17.200 Nicotine dependence, unspecified, uncomplicated; Z79.899 Other long term (current) drug therapy; Z88.0 Allergy status to penicillin; Z88.5 Allergy status to narcotic agent; Z88.6 Allergy status to analgesic agent
CPT/HCPCS: 99284

== ENCOUNTER → 2017-08-11 | Outpatient (CLI) | payer OTHER ==
--- NOTE | 2017-08-11 15:26 | CT ---
EXAMINATION TYPE: CT ankle RT wo con DATE OF EXAM: 08/11/2017 COMPARISON: NONE HISTORY: Pain CT DLP: 210.7 mGycm Automated exposure control for dose reduction was used. CONTRAST: No contrast Technique: Axial images were obtained at 2 mm thick sections. Reconstructed images in the coronal and sagittal p lanes are reviewed. Three-D reconstructed images performed separately on the [employer] computer by the t echnologist are reviewed. FINDINGS: Beam hardening artifact from plate and screws are present. Acute fractures are not identifi ed. Degenerative changes are at the ankle mortise. Ankle mortise appears intact. Articular surface of the distal tibia is somewhat irregular. Some anterior fibular lucency may be present from old incomp lete fracture union. The more posterior portion of the fibula adjacent to the plate and screws is int act and fused. IMPRESSION: OLD OPEN REDUCTION INTERNAL FIXATION DISTAL FIBULA. THERE MAY BE SOME INCOMPLETE UNION OF THE ANTERIO R PORTION OF THE FIBULA WITH NORMAL POST HEALING FRACTURE OF THE POSTERIOR FIBULA.
== END | disposition home or self-care (01) ==
LOC: RADCTMAIN 12:58
PROVIDERS: ATTEND Orthopaedic Surgery
DX: S82.851D Displaced trimalleolar fracture of right lower leg, subsequent encounter for closed fracture with routine healing (principal); M25.571 Pain in right ankle and joints of right foot; Z98.890 Other specified postprocedural states

== ENCOUNTER 2017-11-17 10:51 | Day surgery (SDC) | payer OTHER ==
[2017-11-15 23:25] VITALS: BMI 22.8
[~2017-11-17 10:51] MED LIST changes: +ALPRAZolam 0.25 MG TAB PO PRN; +ALPRAZolam 0.5 MG TAB PO PRN; +ASPIRIN 325 MG TAB PO STA; +ATORVASTATIN 80 MG TAB PO STA; +NITROGLYCERIN SL TABS 0.4 MG TAB SUBLINGUAL PRN; +SODIUM CHLORIDE 0.9% 1,000 ML in EMPTY BAG 1 BAG IV ONE; -ceFAZolin 2 GM in SODIUM CHLORIDE 0.9% 100 ML IVPB ONE
[2017-11-17] MEDS ORDERED: VERAPAMIL 2.5 MG/ML 2 ML AMP ONE (12:57)
[2017-11-17] MEDS ORDERED: LIDOCAINE 2% INJ 20 MG/ML (20 ML MDV) ONE (12:57)
[2017-11-17] MEDS ORDERED: MIDAZOLAM 2 MG/2 ML VIAL ONE (13:02)
[2017-11-17] MEDS ORDERED: HEPARIN SODIUM 1,000 UN/ML (10ML VL) ONE (13:02)
[2017-11-17] MEDS ORDERED: IV FLUID CONTINUATION 950 ML IV ONE (13:07)
[2017-11-17] MEDS ORDERED: MIDAZOLAM 2 MG/2 ML VIAL IVP ONE (13:08)
[2017-11-17] MEDS ORDERED: LIDOCAINE 2% INJ 20 MG/ML SQ ONE (13:09)
[2017-11-17] MEDS ORDERED: IOHEXOL 350 MG/ML 125ML BOTTLE INJ ONE (13:10)
[2017-11-17] MEDS ORDERED: HYDROmorphone 2 MG/ML 1 ML SYRINGE ONE (13:13)
[2017-11-17] MEDS ORDERED: HYDROmorphone 2 MG/ML 1 ML SYRINGE IVP ONE (13:15)
--- NOTE | 2017-11-17 14:07 | CC ---
CARDIAC CATHETERIZATION REPORT DATE OF SERVICE: 11/17/2017 PERFORMING PHYSICIAN: Carl Boston MD, Costume Specialist. PROCEDURE PERFORMED: Selective right and left coronary angiogram. INDICATION: This is a pleasant 47-year-old female patient with significant history of smoking, who continues to have chest discomfort and multiple hospital admission with chest discomfort. The heart catheterization was recommended to rule out any severe underlying CAD. APPROACH: Right common femoral artery. COMPLICATION: None. LEVEL OF SEDATION: Moderate with sedation length of 18 minutes. PROCEDURE DESCRIPTION: After obtaining an informed consent, the patient was brought to the Cardiac Television Picture Tube Rebuilder. The right common femoral artery was cannulated using micropuncture technique. The micropuncture wire passed easily, then I placed a 6-Jordanian sheath in the right common femoral artery. After that, I did selective right and left coronary angiogram using JR4 and JL4 catheters. After that, I did left heart catheterization using 6-Jordanian pigtail catheter. The procedure was completed without any complication. SELECTIVE CORONARY ANGIOGRAM: 1. The RCA is a large caliber vessel and it is a dominant vessel. It is angiographically normal. It bifurcates distally into PDA and PLV branches both are angiographically normal. 2. The left main is angiographically normal. It bifurcates into the circumflex and left anterior descending artery. 3. The left circumflex is a large caliber vessel. It is a nondominant vessel. The left circumflex is angiographically normal. 4. The left anterior descending artery, the proximal LAD is normal and gives rise into a large first diagonal, which seems to be angiographically normal. The mid LAD is normal and gives rise into a second diagonal branch which seems to be angiographically normal and the LAD distally is normal as well. HEMODYNAMICS: The left ventricular end-diastolic pressure was 8 mmHg and no gradient was identified across the aortic valve. Hemodynamic the study. CONCLUSION: 1. Normal coronary angiogram. 2. Normal left ventricular end-diastolic pressure. POSTPROCEDURE MANAGEMENT: 1. Maximize medical treatment. 2. Follow up with the patient. MMODL / IJN: [id number] /
--- NOTE | 2017-11-17 14:13 | LTR ---
November 17, 2017 Re: Sandy Mi Dear Dr. Guthrie: Ms. Sandy Mi continues to have intermittent episodes of chest discomfort. I recommended proceeding with a heart catheterization. She underwent heart catheterization, which revealed normal coronaries. I want to thank you for allowing me to participate in her care and please do not hesitate to call if you have any question or concern. Sincerely, MD YANICK Marin / [place]: [id number] /
[2017-11-17 14:19] VITALS: RESP 18
[2017-11-17] MEDS ORDERED: ACETAMINOPHEN TAB 500 MG TAB PO PRN (17:02)
[2017-11-17] MEDS ORDERED: NITROGLYCERIN SL TABS 0.4 MG TAB SUBLINGUAL PRN (17:02)
[2017-11-17] MEDS ORDERED: HYDROcodone/APAP 7.5-325MG 1 EACH TAB PO PRN (17:02)
[2017-11-17] MEDS ORDERED: DOCUSATE 100 MG CAP PO PRN (17:02)
[2017-11-17] MEDS ORDERED: ALBUTEROL NEBULIZED 2.5 MG/3 ML INHALATION PRN (17:02)
[2017-11-17] MEDS ORDERED: ALPRAZolam 0.25 MG TAB PO PRN (17:02)
[2017-11-17 19:38] VITALS: BP 101/59; PULSE 91; TEMP 97.9
[2017-11-17] MEDS ORDERED: CYCLOBENZAPRINE 10 MG TAB PO SCH (21:00)
[2017-11-17] MEDS ORDERED: ASPIRIN 325 MG TAB PO SCH (21:00)
[2017-11-17] MEDS ORDERED: traZODone HCL 100 MG TAB PO SCH (21:00)
[2017-11-17] MEDS ORDERED: FUROSEMIDE 20 MG TAB PO SCH (21:00)
[2017-11-17] MEDS ORDERED: TOPIRAMATE 25 MG TAB PO SCH (21:00)
[2017-11-17] MEDS ORDERED: PRAVASTATIN SODIUM 80 MG TAB PO SCH (21:00)
[2017-11-17] MEDS ORDERED: MECLIZINE 25 MG TAB PO SCH (21:00)
[2017-11-18] MEDS ORDERED: LEVOTHYROXINE 100 MCG TAB PO SCH (06:30)
[2017-11-18] MEDS ORDERED: PANTOPRAZOLE 40 MG TABLET PO SCH (07:30)
[2017-11-18] MEDS ORDERED: VENLAFAXINE HCL ER 75 MG CAP PO SCH (09:00)
[2017-11-18] MEDS ORDERED: VENLAFAXINE HCL ER 150 MG CAP PO SCH (09:00)
== END 2017-11-17 20:20 | disposition home or self-care (01) ==
LOC: CATHCVL 10:51 → 3OBS 13:26 → CATHCVL 20:20
PROVIDERS: ATTEND Internal Medicine Interventional Cardiology
DX: I20.0 Unstable angina (principal); F17.210 Nicotine dependence, cigarettes, uncomplicated; E78.5 Hyperlipidemia, unspecified; Z82.49 Family history of ischemic heart disease and other diseases of the circulatory system; Z79.899 Other long term (current) drug therapy; Z88.0 Allergy status to penicillin
CPT/HCPCS: 93458; C1894; J2001; J2250; J1170; Q9967

== ENCOUNTER 2019-02-20 13:20 | Observation (INO) | payer OTHER ==
--- NOTE | 2019-02-20 14:01 | ED ---
General Adult HPI <Brian Dexter - Last Filed: 02/20/19 16:52> - General Source: patient Mode of arrival: EMS Limitations: no limitations <Mark Sheets - Last Filed: 02/20/19 17:11> - General Chief complaint: Shortness of Breath Stated complaint: chest heaviness Time Seen by Provider: 02/20/19 13:45 - History of Present Illness Initial comments: 48-year-old female with a past medical history of chest pain, heart failure, COPD, fibromyalgia, GERD presents to the emergency department for a chief co mplaint of left-sided chest pain 2 weeks. Patient describes this pain as a pressure that is sometimes sharp in nature. Patient denies any radiating pain. Denies worsening pain with deep breath. Patient denies any alleviating or aggravating factors. Patient does admit to a current smoking history. Patient admits she has felt somewhat short of breath as well. Denies this worsening with exertion. Patient describes this as a sensation of "fluid around her heart." Denies any leg swelling or pain.Patient has no other complaints at this time including abdominal pain, nausea or vomiting, headache, or visual changes. (Mark Sheets) - Related Data Home Medications Medication Instructions Recorded Confirmed Cyclobenzaprine [Flexeril] 10 mg PO TID PRN 11/22/16 02/20/19 Docusate [Colace] 100 mg PO BID PRN 11/22/16 02/20/19 Furosemide [Lasix] 20 mg PO BID 11/22/16 02/20/19 Levothyroxine Sodium [Synthroid] 100 mcg PO DAILY 11/22/16 02/20/19 Pravastatin Sodium [Pravachol] 80 mg PO HS 11/22/16 02/20/19 Topiramate [Topamax] 50 mg PO BID 11/22/16 02/20/19 HYDROcodone/APAP 7.5-325MG [[place] 1 tab PO Q6HR PRN 10/26/17 02/20/19 7.5-325] Acetaminophen Tab [Tylenol] 500 mg PO Q6H PRN 11/15/17 02/20/19 Isosorbide Mononitrate ER [Imdur] 30 mg PO DAILY 02/20/19 02/20/19 Vortioxetine Hydrobromide 10 mg PO DAILY 02/20/19 02/20/19 [Trintellix] busPIRone HCl [Buspar] 10 mg PO TID 02/20/19 02/20/19 Allergies Allergy/AdvReac Type Severity Reaction Status Date / Time Penicillins Allergy Rash/Hives Verified 02/20/19 14:07 codeine AdvReac Itching Verified 02/20/19 14:07 [From Tylenol-Codeine #3] Review of Systems ROS Other: All systems not noted in ROS Statement are negative. <Brian Dexter - Last Filed: 02/20/19 16:52> ROS Other: All systems not noted in ROS Statement are negative. <Mark Sheets - Last Filed: 02/20/19 17:11> ROS Statement: Those systems with pertinent positive or pertinent negative responses have been documented in the HPI. Past Medical History Past Medical History: Chest Pain / Angina, Heart Failure, COPD, Fibromyalgia, GERD/Reflux, Thyroid Disorder Additional Past Medical History / Comment(s): STATES IRREGULAR HEARTBEAT, HEADACHES, BRONCHITIS, SEE CARDIOLOGY H & P. peptic ulcers History of Any Multi-Drug Resistant Organisms: None Reported Past Surgical History: Cholecystectomy, Hysterectomy Past Anesthesia/Blood Transfusion Reactions: No Reported Reaction Past Psychological History: Anxiety, Bipolar, Depression, Schizophrenia Smoking Status: Current every day smoker Past Alcohol Use History: None Reported Past Drug Use History: Marijuana - Past Family History Mother Family Medical History: No Reported History <Mark Sheets - Last Filed: 02/20/19 17:11> General Exam Limitations: no limitations General appearance: alert, in no apparent distress Head exam: Present: atraumatic, normocephalic, normal inspection Eye exam: Present: normal appearance, PERRL, EOMI. Absent: scleral icterus, conjunctival injection, periorbital swelling ENT exam: Present: normal exam, normal oropharynx, mucous membranes moist, TM's normal bilaterally, normal external ear exam Neck exam: Present: normal inspection, full ROM. Absent: tenderness, meningismus, lymphadenopathy Respiratory exam: Present: normal lung sounds bilaterally, chest wall tenderness (minimal chest wall tenderness present). Absent: respiratory distress, wheezes, rales, rhonchi, stridor Cardiovascular Exam: Present: regular rate, normal rhythm, normal heart sounds. Absent: systolic murmur, diastolic murmur, rubs, gallop, clicks Neurological exam: Present: alert, oriented X3, CN II-XII intact Psychiatric exam: Present: normal affect, normal mood Skin exam: Present: warm, dry, intact, normal color. Absent: rash <Mark Sheets - Last Filed: 02/20/19 17:11> Course <Brian Dexter - Last Filed: 02/20/19 16:52> Vital Signs 02/20/19 02/20/19 02/20/19 13:32 13:36 13:40 Temperature 98.3 F Pulse Rate 78 Respiratory 14 Rate Blood Pressure 102/83 113/64 O2 Sat by Pulse 100 97 98 Oximetry 02/20/19 02/20/19 02/20/19 14:00 14:10 14:20 Temperature Pulse Rate 94 87 85 Respiratory 27 H 16 16 Rate Blood Pressure 113/84 116/82 104/76 O2 Sat by Pulse 99 98 98 Oximetry 02/20/19 02/20/19 02/20/19 14:30 14:40 14:50 Temperature Pulse Rate 89 86 Respiratory 12 19 Rate Blood Pressure 104/76 104/76 110/90 O2 Sat by Pulse 98 95 Oximetry 02/20/19 02/20/19 02/20/19 15:00 15:10 15:20 Temperature Pulse Rate 85 78 77 Respiratory 22 16 16 Rate Blood Pressure 110/90 104/76 99/76 O2 Sat by Pulse 96 97 97 Oximetry 02/20/19 02/20/19 02/20/19 15:30 15:40 15:50 Temperature Pulse Rate 86 87 69 Respiratory 14 24 14 Rate Blood Pressure 99/76 105/75 97/77 O2 Sat by Pulse 97 98 98 Oximetry - Reevaluation(s) Reevaluation #1: 02/20/19 16:47 Case discussed with PRISCILLA Forman. Chart was reviewed. Dr. Gould has been paged, covering for hospital call 02/20/19 16:52 Case was discussed with Dr. Gould, who will admit. (Brian Dexter) EKG Findings - EKG Comments: EKG Findings:: Normal sinus rhythm 83. VT 138. QRS 76. QT 392. QTC 460. Normal axis. Normal QRS. No acute ST change. <Brian Dexter - Last Filed: 02/20/19 16:52> Medical Decision Making - Lab Data Result diagrams: 02/20/19 13:45 02/20/19 13:45 <Brian Dexter - Last Filed: 02/20/19 16:52> - Lab Data Result diagrams: 02/20/19 13:45 02/20/19 13:45 <Mark Sheets - Last Filed: 02/20/19 17:11> - Medical Decision Making 48-year-old female with a past medical history of heart failure, COPD, fibromyalgia, GERD presents to the emergency department for a chief complaint of chest pain. Patient states the pain is on the left side of her chest. Mild shortness of breath, not worse with exertion. Patient states she feels like she has "fluid around her heart." No radiating pain. Minimal reproducible pain on exam. Patient did have a negative heart cath in November by Dr. Jaramillo. CBC CMP unremarkable. Troponin is negative. D-dimer is within normal limits. Chest x- ray shows no acute cardiopulmonary process. Dr. Dexter discussed case with Dr. Gould who will admit patient for serial troponins and further evaluation. (Mark Sheets) - Lab Data Lab Results 02/20/19 02/20/19 02/20/19 Range/Units 13:45 13:45 13:45 WBC 6.9 (3.8-10.6) k/uL RBC 4.42 (3.80-5.40) m/uL Hgb 12.0 (11.4-16.0) gm/dL Hct 39.8 (34.0-46.0) % MCV 90.0 (80.0-100.0) fL MCH 27.1 (25.0-35.0) pg MCHC 30.1 L (31.0-37.0) g/dL RDW 15.1 (11.5-15.5) % Plt Count 462 H (150-450) k/uL Neutrophils % 51 % Lymphocytes % 40 % Monocytes % 6 % Eosinophils % 1 % Basophils % 1 % Neutrophils # 3.5 (1.3-7.7) k/uL Lymphocytes # 2.8 (1.0-4.8) k/uL Monocytes # 0.4 (0-1.0) k/uL Eosinophils # 0.0 (0-0.7) k/uL Basophils # 0.0 (0-0.2) k/uL Hypochromasia Moderate PT 10.3 (9.0-12.0) sec INR 1.0 (<1.2) APTT 25.2 (22.0-30.0) sec D-Dimer 0.25 (<0.60) mg/L FEU Sodium 142 (137-145) mmol/L Potassium 4.7 (3.5-5.1) mmol/L Chloride 106 (98-107) mmol/L Carbon Dioxide 29 (22-30) mmol/L Anion Gap 7 mmol/L BUN 11 (7-17) mg/dL Creatinine 0.77 (0.52-1.04) mg/dL Est GFR (CKD-EPI)AfAm >90 (>60 ml/min/1.73 sqM) Est GFR (CKD-EPI)NonAf >90 (>60 ml/min/1.73 sqM) Glucose 98 (74-99) mg/dL Calcium 10.1 (8.4-10.2) mg/dL Magnesium 2.0 (1.6-2.3) mg/dL Total Bilirubin 0.3 (0.2-1.3) mg/dL AST 25 (14-36) U/L ALT 35 (9-52) U/L Alkaline Phosphatase 104 (38-126) U/L Troponin I (0.000-0.034) ng/mL Total Protein 7.2 (6.3-8.2) g/dL Albumin 4.3 (3.5-5.0) g/dL 02/20/19 Range/Units 13:45 WBC (3.8-10.6) k/uL RBC (3.80-5.40) m/uL Hgb (11.4-16.0) gm/dL Hct (34.0-46.0) % MCV (80.0-100.0) fL MCH (25.0-35.0) pg MCHC (31.0-37.0) g/dL RDW (11.5-15.5) % Plt Count (150-450) k/uL Neutrophils % % Lymphocytes % % Monocytes % % Eosinophils % % Basophils % % Neutrophils # (1.3-7.7) k/uL Lymphocytes # (1.0-4.8) k/uL Monocytes # (0-1.0) k/uL Eosinophils # (0-0.7) k/uL Basophils # (0-0.2) k/uL Hypochromasia PT (9.0-12.0) sec INR (<1.2) APTT (22.0-30.0) sec D-Dimer (<0.60) mg/L FEU Sodium (137-145) mmol/L Potassium (3.5-5.1) mmol/L Chloride (98-107) mmol/L Carbon Dioxide (22-30) mmol/L Anion Gap mmol/L BUN (7-17) mg/dL Creatinine (0.52-1.04) mg/dL Est GFR (CKD-EPI)AfAm (>60 ml/min/1.73 sqM) Est GFR (CKD-EPI)NonAf (>60 ml/min/1.73 sqM) Glucose (74-99) mg/dL Calcium (8.4-10.2) mg/dL Magnesium (1.6-2.3) mg/dL Total Bilirubin (0.2-1.3) mg/dL AST (14-36) U/L ALT (9-52) U/L Alkaline Phosphatase (38-126) U/L Troponin I <0.012 (0.000-0.034) ng/mL Total Protein (6.3-8.2) g/dL Albumin (3.5-5.0) g/dL Disposition <Brian Dexter - Last Filed: 02/20/19 16:52> Is patient prescribed a controlled substance at d/c from ED?: No Time of Disposition: 17:11 <Mark Sheets - Last Filed: 02/20/19 17:11> Clinical Impression: Chest pain, Shortness of breath Disposition: ADMITTED IP TO THIS HOSP Condition: Fair
--- NOTE | 2019-02-20 14:38 | XR ---
EXAMINATION TYPE: XR chest 2V DATE OF EXAM: 02/20/2019 COMPARISON: 10/26/2017 HISTORY: Chest heaviness and COPD. TECHNIQUE: Frontal and lateral views of the chest are obtained. FINDINGS: There is no focal air space opacity, pleural effusion, or pneumothorax seen. Pulmonary hy perinflation and flattening the diaphragms is indicative of underlying COPD. The cardiac silhouette s ize is within normal limits. The osseous structures are intact. IMPRESSION: No acute cardiopulmonary process.
[2019-02-20 14:42] LABS: Basophils % (A) 1 %; Eosinophils % (A) 1 %; HCT 39.8 % (34.0-46.0); Hypochromasia Moderate; Lymphocytes # (A) 2.8 k/uL (1.0-4.8); Lymphocytes % (A) 40 %; MCH 27.1 pg (25.0-35.0); MCHC 30.1 g/dL (31.0-37.0); Mean Platelet Volume 6.9; Monocytes # (A) 0.4 k/uL (0-1.0); Monocytes % (A) 6 %; Neutrophils # (A) 3.5 k/uL (1.3-7.7); Neutrophils % (A) 51 %; Platelet Count 462 k/uL (150-450); RBC 4.42 m/uL (3.80-5.40); RDW 15.1 % (11.5-15.5); WBC 6.9 k/uL (3.8-10.6)
[2019-02-20] MEDS ORDERED: KETOROLAC 30 MG/ML 1 ML VIAL IVP STA (14:52)
[2019-02-20 14:54] LABS: D-Dimer 0.25 mg/L FEU (<0.60); Partial Thromboplastin Time 25.2 sec (22.0-30.0); Prothrombin Time 10.3 sec (9.0-12.0)
[2019-02-20 14:55] LABS: ALT 35 U/L (9-52); AST 25 U/L (14-36); Albumin 4.3 g/dL (3.5-5.0); Alkaline Phosphatase 104 U/L (38-126); Anion Gap 7 mmol/L; Blood Urea Nitrogen 11 mg/dL (7-17); Calcium 10.1 mg/dL (8.4-10.2); Carbon Dioxide 29 mmol/L (22-30); Chloride 106 mmol/L (98-107); Glucose 98 mg/dL (74-99); Potassium 4.7 mmol/L (3.5-5.1); Sodium 142 mmol/L (137-145); Total Bilirubin 0.3 mg/dL (0.2-1.3); Total Protein 7.2 g/dL (6.3-8.2)
[2019-02-20] MEDS ORDERED: ASPIRIN 81 MG PO STA (16:44)
[2019-02-20] MEDS ORDERED: NITROGLYCERIN OINT 1 INCH/GM PACKET TOPICAL STA (16:44)
[2019-02-20] MEDS ORDERED: NITROGLYCERIN SL TABS 0.4 MG TAB SUBLINGUAL PRN (17:11)
[2019-02-20] MEDS ORDERED: KETOROLAC 30 MG/ML 1 ML VIAL IVP PRN (20:10)
[2019-02-20] MEDS ORDERED: ACETAMINOPHEN TAB 325 MG TAB PO PRN (20:11)
[2019-02-21 04:42] LABS: Cholesterol 147 mg/dL (<200); HDL Cholesterol 49 mg/dL (40-60); LDL Cholesterol,Calculated 83 mg/dL (0-99); Triglycerides 77 mg/dL (<150)
[2019-02-21 08:04] VITALS: RESP 18
[2019-02-21] MEDS ORDERED: ASPIRIN 325 MG TAB PO SCH (09:00)
[2019-02-21] MEDS ORDERED: DOCUSATE 100 MG CAP PO PRN (10:50)
[2019-02-21] MEDS ORDERED: CYCLOBENZAPRINE 10 MG TAB PO PRN (10:50)
[2019-02-21] MEDS ORDERED: HYDROcodone/APAP 7.5-325MG 1 EACH TAB PO PRN (10:50)
[2019-02-21 12:24] VITALS: BP 123/83; PULSE 80; TEMP 98.2
--- NOTE | 2019-02-21 13:48 | P.CRDCN ---
History of Present Illness History of present illness: This is a pleasant 48-year-old female past medical history significant for hypothyroidism, COPD, gastroesophageal reflux disease, fibromyalgia, severe anxiety, depression and bipolar and she also smokes heavily. She follows in the office with Dr. Boston. We've been asked to see her in consultation for chest pain. Upon walking into the room the patient is extremely agitated and manic behaving with flight of ideas as well as crying. She is adamant that she has heart failure and insists that she is having a heart attack. She underwent cardiac catheterization November 2017 which revealed normal coronary arteries. She recently was incarcerated and got out of senior living the end of November. She states since getting on a gel she has been extremely anxious and her prescribed BuSpar is no longer helping or working to keep her calm. She is requesting Xanax. At home over the previous couple of days she states she feels like her whole body is filling up with fluid and she is having a difficult time breathing. She denies PND or orthopnea. She states she is coughing up clear l iquid frequently. Chest x-ray on admission is negative for an acute cardiopulmonary process. EKG reveals sinus mechanism with no acute ST or T wave abnormalities noted. Laboratory data reviewed, WBC 6.9, hemoglobin 12, platelets 462, d-dimer 0.25, sodium 142, potassium 4.7, creatinine 0.77, magne sium 2.0, cardiac enzymes negative 3, LDL 83 and HDL 49. Current cardiac medications include Lasix 20 mg twice a day, pravastatin 80 mg daily and Imdur 30 mg daily. At the time of my exam: CONSTITUTIONAL: Denies fever. Denies chills. EYES: Denies blurred vision. Denies vision changes. Denies eye pain. EARS, NOSE, MOUTH & THROAT: Denies headache. Denies sore throat. Denies ear pain. CARDIOVASCULAR: Denies chest pain. Denies shortness of breath. Denies orthopnea. Denies PND. Denies palpitations. RESPIRATORY: Complains of cough. GASTROINTESTINAL: Denies abdominal pain. Denies diarrhea. Denies constipation. Denies nausea. Denies vomiting. MUSCULOSKELETAL: Denies myalgias. INTEGUMENTARY: Denies pruitis. Denies rash. NEUROLOGIC: Denies numbness. Denies tingling. Denies weakness. PSYCHIATRIC: Denies anxiety. Denies depression. ENDOCRINE: Denies fatigue. Denies weight change. Denies polydipsia. Denies polyurina. GENITOURINARY: Denies burning, hematuria or urgency with micturation. HEMATOLOGIC: Denies history of anemia. Denies bleeding. Blood pressure 123/83 heart rate 88 afebrile maintaining oxygen saturation on room air GENERAL: This is a 48-year-old female in no apparent distress at the time of my examination. Appears stated age. HEENT: Head is atraumatic, normocephalic. Pupils are equal, round. Sclerae anicteric. Conjunctivae are clear. Mucous membranes of the mouth are moist. Neck is supple. There is no jugular venous distention. No carotid bruit is heard. LUNGS: Clear to auscultation no wheezes, rales or rhonchi. No chest wall tenderness is noted on palpation or with deep breathing. HEART: Regular rate and rhythm without murmurs, rubs or gallops. S1 and S2 h eard. ABDOMEN: Soft, nontender. Bowel sounds are heard. No organomegaly noted. EXTREMITIES: No evidence of peripheral edema and no calf tenderness noted. VASCULAR: Radial and dorsalis pedis pulses palpated, no evidence of clubbing. NEUROLOGIC: Patient is awake, alert and oriented x3. ASSESSMENT Chest pain, shortness of breath and full feeling, atypical for angina. An acute coronary event has been ruled out. COPD Fibromyalgia Anxiety Depression Bipolar and schizophrenia Chronic nicotine dependence PLAN An acute coronary event has been ruled out. Clinically she is euvolemic with no fluid overload or symptoms suggestive of heart failure. Shortness of breath may be related to underlying COPD as well as ongoing daily marijuana smoking. Check TSH and NTproBNP. Obtain 2D echocardiogram and doppler study to assess cardiac structure and function. Discontinue aspirin and imdur as there is no coronary artery disease per cath 11/2017. Thank you kindly for this consultation. Nurse Practitioner note has been reviewed, I agree with a documented findings and plan of care. Patient was seen and examined. Past Medical History Past Medical History: Chest Pain / Angina, Heart Failure, COPD, Fibromyalgia, GERD/Reflux, Thyroid Disorder Additional Past Medical History / Comment(s): STATES IRREGULAR HEARTBEAT, HEADACHES, BRONCHITIS, SEE CARDIOLOGY H & P. peptic ulcers, anxiety, hyster, choley. History of Any Multi-Drug Resistant Organisms: None Reported Past Surgical History: Cholecystectomy, Hysterectomy Past Anesthesia/Blood Transfusion Reactions: No Reported Reaction Past Psychological History: Anxiety, Bipolar, Depression, Schizophrenia Smoking Status: Current every day smoker Past Alcohol Use History: None Reported Additional Past Alcohol Use History / Comment(s): SMOKES 1/2-3/4 PPD. STARTED SMOKING AGE 16 (1985) Past Drug Use History: Marijuana Additional Drug Use History / Comment(s): INSTRUCTED NOT TO USE 24 HRS PRIOR TO PROCEDURE - Past Family History Mother Family Medical History: No Reported History Medications and Allergies Home Medications Medication Instructions Recorded Confirmed Type Cyclobenzaprine [Flexeril] 10 mg PO TID PRN 11/22/16 02/20/19 History Docusate [Colace] 100 mg PO BID PRN 11/22/16 02/20/19 History Furosemide [Lasix] 20 mg PO BID 11/22/16 02/20/19 History Levothyroxine Sodium [Synthroid] 100 mcg PO DAILY 11/22/16 02/20/19 History Pravastatin Sodium [Pravachol] 80 mg PO HS 11/22/16 02/20/19 History Topiramate [Topamax] 50 mg PO BID 11/22/16 02/20/19 History HYDROcodone/APAP 7.5-325MG [[place] 1 tab PO Q6HR PRN 10/26/17 02/20/19 History 7.5-325] Acetaminophen Tab [Tylenol] 500 mg PO Q6H PRN 11/15/17 02/20/19 History Isosorbide Mononitrate ER [Imdur] 30 mg PO DAILY 02/20/19 02/20/19 History Vortioxetine Hydrobromide 10 mg PO DAILY 02/20/19 02/20/19 History [Trintellix] busPIRone HCl [Buspar] 10 mg PO TID 02/20/19 02/20/19 History Allergies Allergy/AdvReac Type Severity Reaction Status Date / Time Penicillins Allergy Rash/Hives Verified 02/20/19 14:07 codeine AdvReac Itching Verified 02/20/19 14:07 [From Tylenol-Codeine #3] Physical Exam Vitals: Vital Signs Temp Pulse Pulse Pulse Resp BP BP 02/21/19 12:00 98.2 F 66 80 18 02/21/19 08:00 98 F 66 73 18 02/21/19 04:00 66 15 02/21/19 03:54 98.1 F 72 15 107/72 02/21/19 00:00 98.0 F 67 15 128/72 02/20/19 20:40 74 16 115/79 02/20/19 20:30 74 10 L 105/78 02/20/19 20:20 81 17 105/78 02/20/19 20:00 98.2 F 73 15 103/75 120/78 02/20/19 19:50 82 10 L 103/75 02/20/19 19:40 78 10 L 101/71 02/20/19 19:30 83 16 103/75 02/20/19 19:20 86 28 H 103/75 02/20/19 19:10 87 40 H 114/77 02/20/19 19:00 87 16 112/80 02/20/19 18:50 87 16 112/80 02/20/19 18:40 92 13 102/75 02/20/19 18:30 93 15 99/74 02/20/19 18:20 84 16 99/74 02/20/19 18:10 89 16 100/66 02/20/19 18:00 76 16 99/67 02/20/19 17:50 76 44 H 99/67 02/20/19 17:42 16 02/20/19 17:40 87 16 101/65 02/20/19 17:30 79 10 L 121/82 02/20/19 17:20 92 19 121/82 02/20/19 17:10 86 16 121/82 02/20/19 17:00 82 16 107/71 02/20/19 16:50 84 16 107/71 02/20/19 16:40 87 11 L 101/72 02/20/19 16:30 83 16 114/92 02/20/19 16:20 75 16 114/92 02/20/19 16:10 81 14 105/69 02/20/19 16:00 77 13 97/77 02/20/19 15:50 69 14 97/77 02/20/19 15:40 87 24 105/75 02/20/19 15:30 86 14 99/76 02/20/19 15:20 77 16 99/76 04/10/19 15:10 78 16 104/76 02/20/19 15:00 85 22 110/90 02/20/19 14:50 86 19 110/90 02/20/19 14:40 89 12 104/76 02/20/19 14:30 104/76 02/20/19 14:20 85 16 104/76 02/20/19 14:10 87 16 116/82 02/20/19 14:00 94 27 H 113/84 02/20/19 13:40 113/64 02/20/19 13:36 02/20/19 13:32 98.3 F 78 14 102/83 BP Pulse Ox 02/21/19 12:00 123/83 100 02/21/19 08:00 95/60 100 02/21/19 04:00 02/21/19 03:54 98 02/21/19 00:00 98 02/20/19 20:40 97 02/20/19 20:30 97 02/20/19 20:20 99 02/20/19 20:00 97 02/20/19 19:50 97 02/20/19 19:40 97 02/20/19 19:30 97 02/20/19 19:20 98 02/20/19 19:10 99 02/20/19 19:00 98 02/20/19 18:50 97 02/20/19 18:40 98 02/20/19 18:30 98 02/20/19 18:20 98 02/20/19 18:10 94 L 02/20/19 18:00 97 02/20/19 17:50 98 02/20/19 17:42 02/20/19 17:40 95 02/20/19 17:30 97 02/20/19 17:20 97 02/20/19 17:10 98 02/20/19 17:00 96 02/20/19 16:50 97 02/20/19 16:40 98 02/20/19 16:30 98 02/20/19 16:20 98 02/20/19 16:10 98 02/20/19 16:00 98 02/20/19 15:50 98 02/20/19 15:40 98 02/20/19 15:30 97 02/20/19 15:20 97 02/20/19 15:10 97 02/20/19 15:00 96 02/20/19 14:50 95 02/20/19 14:40 98 02/20/19 14:30 02/20/19 14:20 98 02/20/19 14:10 98 02/20/19 14:00 99 02/20/19 13:40 98 02/20/19 13:36 97 02/20/19 13:32 100 Intake and Output 02/20/19 02/21/19 02/21/19 22:59 06:59 14:59 Other: Voiding Method Toilet Toilet Toilet # Voids 1 1 1 Results 02/20/19 13:45 02/20/19 13:45 Cardiac Enzymes 02/20/19 02/20/19 02/20/19 Range/Units 13:45 13:45 21:07 AST 25 (14-36) U/L Troponin I <0.012 <0.012 (0.000-0.034) ng/mL 02/21/19 Range/Units 01:29 AST (14-36) U/L Troponin I <0.012 (0.000-0.034) ng/mL Coagulation 02/20/19 Range/Units 13:45 PT 10.3 (9.0-12.0) sec APTT 25.2 (22.0-30.0) sec Lipids 02/20/19 Range/Units 13:45 Triglycerides 77 (<150) mg/dL Cholesterol 147 (<200) mg/dL HDL Cholesterol 49 (40-60) mg/dL CBC 02/20/19 Range/Units 13:45 WBC 6.9 (3.8-10.6) k/uL RBC 4.42 (3.80-5.40) m/uL Hgb 12.0 (11.4-16.0) gm/dL Hct 39.8 (34.0-46.0) % Plt Count 462 H (150-450) k/uL Comprehensive Metabolic Panel 02/20/19 Range/Units 13:45 Sodium 142 (137-145) mmol/L Potassium 4.7 (3.5-5.1) mmol/L Chloride 106 (98-107) mmol/L Carbon Dioxide 29 (22-30) mmol/L BUN 11 (7-17) mg/dL Creatinine 0.77 (0.52-1.04) mg/dL Glucose 98 (74-99) mg/dL Calcium 10.1 (8.4-10.2) mg/dL AST 25 (14-36) U/L ALT 35 (9-52) U/L Alkaline Phosphatase 104 (38-126) U/L Total Protein 7.2 (6.3-8.2) g/dL Albumin 4.3 (3.5-5.0) g/dL Current Medications Generic Name Dose Route Start Last Admin Trade Name Freq PRN Reason Stop Dose Admin Acetaminophen 650 mg 02/20/19 20:11 02/20/19 20:59 Tylenol Tab PO 650 mg Q6HR PRN Administration Fever and/ or Pain Hydrocodone Bitart/Acetaminophen 1 each 02/21/19 10:50 02/21/19 13:16 [place] 7.5-325 PO 1 each Q6HR PRN Administration Pain Aspirin 325 mg 02/21/19 09:00 02/21/19 09:15 Aspirin PO 325 mg DAILY TR Administration Buspirone HCl 10 mg 02/21/19 16:00 Buspar PO TID TR Cyclobenzaprine HCl 10 mg 02/21/19 10:50 02/21/19 13:19 Flexeril PO 10 mg TID PRN Administration Muscle Spasm Docusate Sodium 100 mg 02/21/19 10:50 Colace PO BID PRN Constipation Furosemide 20 mg 02/21/19 16:00 Lasix PO BID@0900,1600 [facility] Isosorbide Mononitrate 30 mg 02/22/19 09:00 Imdur PO DAILY [facility] Ketorolac Tromethamine 30 mg 02/20/19 20:10 02/21/19 10:54 Toradol IVP 02/24/19 20:11 30 mg Q6HR PRN Administration Pain Levothyroxine Sodium 100 mcg 02/22/19 06:30 Synthroid PO DAILY@0630 [facility] Nitroglycerin 0.4 mg 02/20/19 17:11 Nitrostat SUBLINGUAL Q5M PRN Chest Pain Pravastatin Sodium 80 mg 02/21/19 21:00 Pravachol PO HS [facility] Topiramate 50 mg 02/21/19 21:00 Topamax PO BID [facility] Vortioxetine 10 mg 02/22/19 09:00 Trintellix PO DAILY [facility] Intake and Output 02/20/19 02/21/19 02/21/19 22:59 06:59 14:59 Other: Voiding Method Toilet Toilet Toilet # Voids 1 1 1 02/20/19 13:45 02/20/19 13:45
[2019-02-21 15:06] LABS: T4, Free (Free Thyroxine) 1.72 ng/dL (0.78-2.19)
[2019-02-21] MEDS ORDERED: busPIRone HCl 10 MG TAB PO SCH (16:00)
[2019-02-21] MEDS ORDERED: FUROSEMIDE 20 MG TAB PO SCH (16:00)
--- NOTE | 2019-02-21 18:04 | HP ---
HISTORY AND PHYSICAL CHIEF COMPLAINT: Chest pain. HISTORY OF PRESENT ILLNESS: This is the first known admission for this 48-year-old female. She came to the emergency room with a complaint of chest pain or "pressure" for 3 weeks. She apparently has a history of congestive heart failure. She also has had an irregular pulse. She goes to a nightman here. In the emergency room, cardiac enzymes were unremarkable. She was admitted for observation. She is a difficult historian. REVIEW OF SYSTEMS: She denies any neurologic problems, change in vision or hearing, chest pain, cough, hemoptysis, heart disease other than that already mentioned. She has had no abdominal pain, hematemesis, melena, hematochezia, jaundice, renal failure, dysuria, pain, etc. Past medical history, family history, and personal and histories are difficult to obtain from her. She is apparently on numerous medications. She is ALLERGIC TO PENICILLIN. She is not clear what surgery she has had in the past. She smokes about a half pack of cigarettes a day and uses marijuana. She has a lot of trouble with chronic low back pain and she states that she also has irritable bowel syndrome. She apparently recently got out of senior living. PHYSICAL EXAMINATION: Blood pressure 124/78 with a pulse of 91, respirations of 35, and she is afebrile. In general she appeared to be pale. Skin color was normal. Skin was warm and dry. Head, ears, eyes, nose, mouth and throat were grossly normal. Neck veins were not distended. Carotids were normal. Chest was clear. Cardiac exam demonstrated what sounded like sinus rhythm with no murmurs or extra sounds. Abdomen was soft and there were no masses or visceromegaly. Extremities were normal. Neurologically she was intact. She is admitted to the hospital with the diagnoses: 1. Chest pain. 2. History of heart disease. 3. History of congestive heart failure. 4. History of irritable bowel syndrome. 5. Lumbar spine spine degenerative arthritis and chronic back pain. PLAN: 1. Bed rest. 2. IV fluids. 3. Serial EKGs and enzymes. 4. Cardiology consult. MMODL / IJN: [id number] /
--- NOTE | 2019-02-21 19:24 | ECHOF ---
Referral Reason:cp, sob MEASUREMENTS -------- HEIGHT: 165.1 cm WEIGHT: 61.7 kg BP: IVSd: 0.8 cm (0.6 - 1.1) LVIDd: 3.2 cm (3.9 - 5.3) LVPWd: 0.9 cm (0.6 - 1.1) IVSs: 1.1 cm LVIDs: 2.5 cm LVPWs: 1.0 cm LAESV Index (A-L): 14.22 ml/m Ao Diam: 2.9 cm (2.0 - 3.7) AV Cusp: 1.8 cm (1.5 - 2.6) LA Diam: 2.1 cm (2.7 - 3.8) MV EXCURSION: 20.954 mm (> 18.000) MV EF SLOPE: 132 mm/s (70 - 150) EPSS: 2.2 cm MV E Faustino: 0.59 m/s MV DecT: 230 ms MV A Faustino: 0.63 m/s MV E/A Ratio: 0.95 RAP: 5.00 mmHg RVSP: 19.13 mmHg FINDINGS -------- Sinus rhythm. This was a technically good study. The left ventricular size is normal. Left ventricular wall thickness is normal. Overall left vent ricular systolic function is mildly impaired with, an EF between 45 - 50 %. The right ventricle is normal in size. Normal LA size by volume 22+/-6 ml/m2. The right atrial size is normal. The aortic valve is trileaflet and appears structurally normal. There is trace mitral regurgitation. Trace tricuspid regurgitation present. The right ventricular systolic pressure, as measured by Dopp ler, is 19.13mmHg. There is no pulmonic regurgitation present. The aortic root size is normal. Normal inferior vena cava with normal inspiratory collapse consistent with estimated right atrial pre ssure of 5 mmHg. There is a trivial pericardial effusion present. CONCLUSIONS -------- 1. Sinus rhythm. 2. This was a technically good study. 3. The left ventricular size is normal. 4. Left ventricular wall thickness is normal. 5. Overall left ventricular systolic function is mildly impaired with, an EF between 45 - 50 %. 6. The right ventricle is normal in size. 7. Normal LA size by volume 22+/-6 ml/m2. 8. The right atrial size is normal. 9. The aortic valve is trileaflet and appears structurally normal. 10. There is trace mitral regurgitation. 11. Trace tricuspid regurgitation present. 12. The right ventricular systolic pressure, as measured by Doppler, is 19.13mmHg. 13. There is no pulmonic regurgitation present. 14. The aortic root size is normal. 15. Normal inferior vena cava with normal inspiratory collapse consistent with estimated right atrial pressure of 5 mmHg. 16. There is a trivial pericardial effusion present. [employer] BRIDGE OPERATOR: Beverley Thompson RDCS
[2019-02-21] MEDS ORDERED: TOPIRAMATE 25 MG TAB PO SCH (21:00)
[2019-02-21] MEDS ORDERED: PRAVASTATIN SODIUM 80 MG TAB PO SCH (21:00)
[2019-02-22] MEDS ORDERED: LEVOTHYROXINE 100 MCG TAB PO SCH (06:30)
--- NOTE | 2019-02-22 06:50 | DS ---
DISCHARGE SUMMARY CHIEF COMPLAINT: Chest pain. HISTORY OF PRESENT ILLNESS AND PHYSICAL EXAM: Details of this lady's history and physical can be found in the initial workup. LABORATORY STUDIES: While she was in the hospital she had laboratory studies, details of which can be found in the laboratory section of her chart. COURSE IN THE HOSPITAL: After admission, she was placed on bedrest, started on intravenous fluids and had serial EKGs and enzymes, which were normal. She was seen by Cardiology. They felt that she was stable enough that she could be discharged and she will go home on her usual activity, diet and medications and be seen in followup by me as well as Cardiology. FINAL DIAGNOSES: 1. Atypical chest pain. 2. History of congestive heart failure. 3. History of irritable bowel syndrome. 4. Low back pain. OPERATIONS: None. CONSULTATIONS: Cardiology. She is improved. YANICK / WINSTON: [id number] /
[2019-02-22] MEDS ORDERED: VORTIOXETINE HYDROBROMIDE 10 MG TABLET PO SCH (09:00)
[2019-02-22] MEDS ORDERED: ISOSORBIDE MONONITRATE ER 30 MG TAB.ER.24H PO SCH (09:00)
== END 2019-02-21 16:47 | disposition home or self-care (01) ==
LOC: EC 13:20 → 1SOBS 17:12
PROVIDERS: ADMIT Family Medicine; ATTEND Family Medicine
DX: R07.89 Other chest pain (principal); J44.9 Chronic obstructive pulmonary disease, unspecified; K58.9 Irritable bowel syndrome, unspecified; I50.9 Heart failure, unspecified; M54.5 Low back pain; G89.29 Other chronic pain; F31.9 Bipolar disorder, unspecified; F41.9 Anxiety disorder, unspecified; F20.9 Schizophrenia, unspecified; M47.816 Spondylosis without myelopathy or radiculopathy, lumbar region; F17.210 Nicotine dependence, cigarettes, uncomplicated; F12.90 Cannabis use, unspecified, uncomplicated; K21.9 Gastro-esophageal reflux disease without esophagitis; E03.9 Hypothyroidism, unspecified; I49.9 Cardiac arrhythmia, unspecified; M79.7 Fibromyalgia; Z79.890 Hormone replacement therapy; Z79.899 Other long term (current) drug therapy; Z88.0 Allergy status to penicillin; Z88.5 Allergy status to narcotic agent; Z87.11 Personal history of peptic ulcer disease; Z90.49 Acquired absence of other specified parts of digestive tract; Z90.710 Acquired absence of both cervix and uterus
CPT/HCPCS: 96376; 96374; 99285; 36415; 93005; 93306; 85379; 84439; 83880; 80061; 80053; 84443; 83735; 84484 ×2; 85025; 85610; 85730; 71046; G0378 ×2; J1885 ×2

== ENCOUNTER 2019-04-09 12:04 | Observation (INO) | payer OTHER ==
[2019-04-09] MEDS ORDERED: SODIUM CHLORIDE 0.9% 500 ML 500 ML IV ONE (12:55)
[2019-04-09] MEDS ORDERED: MORPHINE SULFATE 4 MG/ML SYRINGE IVP STA ×2 (12:55→14:58)
--- NOTE | 2019-04-09 12:58 | ED ---
General Adult HPI - General Chief complaint: Chest Pain Stated complaint: Sob/chest pain Time Seen by Provider: 04/09/19 12:17 Source: patient, RN notes reviewed, old records reviewed Mode of arrival: ambulatory Limitations: no limitations - History of Present Illness Initial comments: 48-year-old female presented for evaluation of chest pain. Patient has had constant chest pressure and pain for the past 4 days. She also reports dyspnea. She has history of congestive heart failure, history of COPD. She is a current smoker. She states that she's had multiple ER visits and admissions with chest pain over the past several months. She also states that she is currently out of her Severance and out of her Xanax, she's been out of these medications for the past several days. Denies vomiting she's had some nausea. She states she did have a sharp pain in her chest which lasted just seconds at approximately 6 PM yesterday evening. Other than this short episode of sharp chest pain or pain is been chest pressure which is constant for 4 days. - Related Data Home Medications Medication Instructions Recorded Confirmed Cyclobenzaprine [Flexeril] 10 mg PO TID PRN 11/22/16 04/09/19 Docusate [Colace] 100 mg PO BID PRN 11/22/16 04/09/19 Furosemide [Lasix] 20 mg PO BID 11/22/16 04/09/19 Levothyroxine Sodium [Synthroid] 100 mcg PO DAILY 11/22/16 04/09/19 Pravastatin Sodium [Pravachol] 80 mg PO HS 11/22/16 04/09/19 Topiramate [Topamax] 50 mg PO BID 11/22/16 04/09/19 HYDROcodone/APAP 7.5-325MG [Severance 1 tab PO TID 10/26/17 04/09/19 7.5-325] Isosorbide Mononitrate ER [Imdur] 30 mg PO DAILY 02/20/19 04/09/19 Vortioxetine Hydrobromide 10 mg PO DAILY 02/20/19 04/09/19 [Trintellix] ALPRAZolam [Xanax] 0.25 mg PO Q8HR PRN 04/09/19 04/09/19 Loratadine [Claritin] 10 mg PO DAILY 04/09/19 04/09/19 Metoprolol Succinate [Toprol XL] 25 mg PO DAILY 04/09/19 04/09/19 Spironolactone 12.5 mg PO DAILY 04/09/19 04/09/19 Allergies Allergy/AdvReac Type Severity Reaction Status Date / Time Penicillins Allergy Rash/Hives Verified 04/09/19 12:34 codeine AdvReac Itching Verified 04/09/19 12:34 [From Tylenol-Codeine #3] Review of Systems ROS Statement: Those systems with pertinent positive or pertinent negative responses have been documented in the HPI. ROS Other: All systems not noted in ROS Statement are negative. Past Medical History Past Medical History: Chest Pain / Angina, Heart Failure, COPD, Fibromyalgia, GERD/Reflux, Thyroid Disorder Additional Past Medical History / Comment(s): STATES IRREGULAR HEARTBEAT, HEADACHES, BRONCHITIS, SEE CARDIOLOGY H & P. peptic ulcers, anxiety, hyster, choley. History of Any Multi-Drug Resistant Organisms: None Reported Past Surgical History: Cholecystectomy, Hysterectomy Past Anesthesia/Blood Transfusion Reactions: No Reported Reaction Past Psychological History: Anxiety, Bipolar, Depression, Schizophrenia Smoking Status: Current every day smoker Past Alcohol Use History: None Reported Past Drug Use History: Marijuana - Past Family History Mother Family Medical History: No Reported History General Exam Limitations: no limitations General appearance: alert, in no apparent distress Head exam: Present: atraumatic, normocephalic Eye exam: Present: normal appearance ENT exam: Present: normal exam Neck exam: Present: normal inspection. Absent: tenderness, meningismus Respiratory exam: Present: normal lung sounds bilaterally. Absent: respiratory distress, wheezes Cardiovascular Exam: Present: regular rate, normal rhythm GI/Abdominal exam: Present: soft. Absent: distended, tenderness Extremities exam: Present: normal inspection, normal capillary refill. Absent: pedal edema Neurological exam: Present: alert, oriented X3, CN II-XII intact. Absent: motor sensory deficit Psychiatric exam: Present: anxious Skin exam: Present: warm, dry, intact. Absent: cyanosis, diaphoretic Course Vital Signs 04/09/19 04/09/19 04/09/19 12:13 12:18 13:01 Temperature 97.9 F Pulse Rate 92 66 Respiratory 18 18 Rate Blood Pressure 110/71 115/74 110/71 O2 Sat by Pulse 99 100 Oximetry 04/09/19 04/09/19 04/09/19 13:10 13:20 13:30 Temperature Pulse Rate Respiratory Rate Blood Pressure 110/71 110/71 119/80 O2 Sat by Pulse 97 100 Oximetry 04/09/19 04/09/19 04/09/19 13:50 14:10 14:20 Temperature Pulse Rate Respiratory Rate Blood Pressure 115/74 108/74 108/74 O2 Sat by Pulse 100 100 99 Oximetry 04/09/19 04/09/19 04/09/19 14:30 14:40 14:50 Temperature Pulse Rate Respiratory Rate Blood Pressure 108/74 120/87 120/87 O2 Sat by Pulse 96 98 Oximetry 04/09/19 04/09/19 04/09/19 15:00 15:10 15:20 Temperature Pulse Rate Respiratory Rate Blood Pressure 120/87 141/90 141/90 O2 Sat by Pulse 98 99 98 Oximetry EKG Findings - EKG Comments: EKG Findings:: EKG: Normal sinus rhythm, rate of 93, GA interval 140, QRS duration 76, QTC [address] segment elevation. Medical Decision Making - Medical Decision Making 48-year-old female with chest pain. EKG is normal sinus rhythm with no ST segment elevation. Chest x-ray negative for acute cortical varices. Patient has a normal CBC, normal CMP. She has a negative initial troponin. I did discuss this case with the patient's primary care physician Dr. Gould. Recommend the patient be placed in observation for cervical neck enzymes, cardiology consultation. - Lab Data Result diagrams: 04/09/19 12:50 04/09/19 12:50 Lab Results 04/09/19 04/09/19 04/09/19 Range/Units 12:50 12:50 12:50 WBC 7.1 (3.8-10.6) k/uL RBC 4.49 (3.80-5.40) m/uL Hgb 12.3 (11.4-16.0) gm/dL Hct 37.8 (34.0-46.0) % MCV 84.1 D (80.0-100.0) fL MCH 27.3 (25.0-35.0) pg MCHC 32.5 (31.0-37.0) g/dL RDW 17.4 H (11.5-15.5) % Plt Count 342 (150-450) k/uL Neutrophils % 44 % Lymphocytes % 45 % Monocytes % 6 % Eosinophils % 1 % Basophils % 0 % Neutrophils # 3.2 (1.3-7.7) k/uL Lymphocytes # 3.2 (1.0-4.8) k/uL Monocytes # 0.4 (0-1.0) k/uL Eosinophils # 0.1 (0-0.7) k/uL Basophils # 0.0 (0-0.2) k/uL Anisocytosis Slight PT 11.0 (9.0-12.0) sec INR 1.0 (<1.2) APTT 22.9 (22.0-30.0) sec Sodium 142 (137-145) mmol/L Potassium 3.6 (3.5-5.1) mmol/L Chloride 112 H (98-107) mmol/L Carbon Dioxide 21 L (22-30) mmol/L Anion Gap 9 mmol/L BUN 7 (7-17) mg/dL Creatinine 0.72 (0.52-1.04) mg/dL Est GFR (CKD-EPI)AfAm >90 (>60 ml/min/1.73 sqM) Est GFR (CKD-EPI)NonAf >90 (>60 ml/min/1.73 sqM) Glucose 92 (74-99) mg/dL Calcium 9.9 (8.4-10.2) mg/dL Magnesium 1.9 (1.6-2.3) mg/dL Total Bilirubin 0.3 (0.2-1.3) mg/dL AST 21 (14-36) U/L ALT 16 (9-52) U/L Alkaline Phosphatase 99 (38-126) U/L Troponin I (0.000-0.034) ng/mL Total Protein 6.9 (6.3-8.2) g/dL Albumin 4.1 (3.5-5.0) g/dL Lipase 43 (23-300) U/L 04/09/19 Range/Units 12:50 WBC (3.8-10.6) k/uL RBC (3.80-5.40) m/uL Hgb (11.4-16.0) gm/dL Hct (34.0-46.0) % MCV (80.0-100.0) fL MCH (25.0-35.0) pg MCHC (31.0-37.0) g/dL RDW (11.5-15.5) % Plt Count (150-450) k/uL Neutrophils % % Lymphocytes % % Monocytes % % Eosinophils % % Basophils % % Neutrophils # (1.3-7.7) k/uL Lymphocytes # (1.0-4.8) k/uL Monocytes # (0-1.0) k/uL Eosinophils # (0-0.7) k/uL Basophils # (0-0.2) k/uL Anisocytosis PT (9.0-12.0) sec INR (<1.2) APTT (22.0-30.0) sec Sodium (137-145) mmol/L Potassium (3.5-5.1) mmol/L Chloride (98-107) mmol/L Carbon Dioxide (22-30) mmol/L Anion Gap mmol/L BUN (7-17) mg/dL Creatinine (0.52-1.04) mg/dL Est GFR (CKD-EPI)AfAm (>60 ml/min/1.73 sqM) Est GFR (CKD-EPI)NonAf (>60 ml/min/1.73 sqM) Glucose (74-99) mg/dL Calcium (8.4-10.2) mg/dL Magnesium (1.6-2.3) mg/dL Total Bilirubin (0.2-1.3) mg/dL AST (14-36) U/L ALT (9-52) U/L Alkaline Phosphatase (38-126) U/L Troponin I <0.012 (0.000-0.034) ng/mL Total Protein (6.3-8.2) g/dL Albumin (3.5-5.0) g/dL Lipase (23-300) U/L Disposition Clinical Impression: Chest pain Disposition: ADMITTED IP TO THIS [facility] Condition: Stable Is patient prescribed a controlled substance at d/c from ED?: No Referrals: Jonathon Gould MD [Primary Care Provider] - 1-2 days Decision to Admit Reason: Admit from EC Decision Date: 04/09/19 Decision Time: 15:28
--- NOTE | 2019-04-09 13:16 | XR ---
EXAMINATION TYPE: XR chest 2V DATE OF EXAM: 04/09/2019 COMPARISON: 02/20/2019 HISTORY: COPD. Weight loss, nausea, and vomiting. TECHNIQUE: Frontal and lateral views of the chest are obtained. FINDINGS: There is no focal air space opacity, pleural effusion, or pneumothorax seen. Pulmonary hy perinflation relating to underlying COPD is again appreciated. The cardiac silhouette size is within normal limits. The osseous structures are intact. Cholecystectomy clips are noted in the right uppe r quadrant. IMPRESSION: No acute cardiopulmonary process.
[2019-04-09 13:21] LABS: Partial Thromboplastin Time 22.9 sec (22.0-30.0)
[2019-04-09 13:24] LABS: ALT 16 U/L (9-52); AST 21 U/L (14-36); Albumin 4.1 g/dL (3.5-5.0); Alkaline Phosphatase 99 U/L (38-126); Anion Gap 9 mmol/L; Blood Urea Nitrogen 7 mg/dL (7-17); Calcium 9.9 mg/dL (8.4-10.2); Carbon Dioxide 21 mmol/L (22-30); Chloride 112 mmol/L (98-107); Glucose 92 mg/dL (74-99); Lipase 43 U/L (23-300); Magnesium 1.9 mg/dL (1.6-2.3); Potassium 3.6 mmol/L (3.5-5.1); Sodium 142 mmol/L (137-145); Total Bilirubin 0.3 mg/dL (0.2-1.3); Total Protein 6.9 g/dL (6.3-8.2)
[2019-04-09 13:25] LABS: Anisocytosis Slight; Basophils % (A) 0 %; Eosinophils # (A) 0.1 k/uL (0-0.7); Eosinophils % (A) 1 %; HCT 37.8 % (34.0-46.0); HGB 12.3 gm/dL (11.4-16.0); Lymphocytes # (A) 3.2 k/uL (1.0-4.8); Lymphocytes % (A) 45 %; MCH 27.3 pg (25.0-35.0); MCHC 32.5 g/dL (31.0-37.0); Mean Platelet Volume 7.5; Monocytes # (A) 0.4 k/uL (0-1.0); Monocytes % (A) 6 %; Neutrophils # (A) 3.2 k/uL (1.3-7.7); Neutrophils % (A) 44 %; Platelet Count 342 k/uL (150-450); RBC 4.49 m/uL (3.80-5.40); RDW 17.4 % (11.5-15.5); WBC 7.1 k/uL (3.8-10.6)
[2019-04-09 13:37] LABS: MCV 84.1 fL (80.0-100.0)
[2019-04-09] MEDS ORDERED: PANTOPRAZOLE 40 MG/10 ML VIAL IVP STA (14:58)
[2019-04-09] MEDS ORDERED: ACETAMINOPHEN TAB 325 MG TAB PO PRN (15:26)
[2019-04-09] MEDS ORDERED: NALOXONE 0.4 MG/ML 1 ML VIAL IV PRN (15:26)
[2019-04-09] MEDS ORDERED: ASPIRIN 325 MG TAB PO STA (15:26)
[2019-04-09] MEDS ORDERED: SODIUM CHLORIDE 0.9% 1,000 ML IV SCH (15:30)
[2019-04-09] MEDS: CALCIUM CARBONATE 500 MG CHEWABLE PO PRN (17:12)
[2019-04-09] MEDS: MORPHINE SULFATE 4 MG/ML SYRINGE IV PRN (21:00)
[2019-04-09] MEDS: ONDANSETRON 4 MG/2 ML VIAL IVP PRN (21:01)
[2019-04-10] MEDS: MORPHINE SULFATE 4 MG/ML SYRINGE IV PRN ×2 (02:29→08:42)
--- NOTE | 2019-04-10 07:08 | P.CRDCN ---
History of Present Illness Consult date: 04/10/19 Chief complaint: Chest pain History of present illness: This is a 48-year-old female patient who I follow in the office as an outpatient presented to the hospital again with a chest discomfort. She does have history of recurrent chest discomfort and she underwent a heart catheterization in November 2017 and that revealed normal coronaries. Beside that she is a smoker. This time she stated that she has not been feeling well for the last few weeks. She stated that she has been experiencing abdominal discomfort associated with nausea and vomiting as well as diarrhea. On physical examination she does have abdominal discomfort. She also described again intermittent episodes of atypical chest discomfort. No shortness of breath, dizziness, heart racing, or syncope. The EKG showed sinus rhythm without any significant ST or T-wave abno rmalities. The cardiac enzymes were checked and came in to be unremarkable. The chest x-ray did not show any acute abnormalities. Please note that the patient underwent a heart catheterization in November 2017 and that revealed normal coronaries and currently she is on oral nitrate for possible coronary vasospasm. Past Medical History Past Medical History: Chest Pain / Angina, Heart Failure, COPD, Fibromyalgia, GERD/Reflux, Thyroid Disorder Additional Past Medical History / Comment(s): STATES IRREGULAR HEARTBEAT, HEADACHES, BRONCHITIS, SEE CARDIOLOGY H & P. peptic ulcers, anxiety, hyster, choley. History of Any Multi-Drug Resistant Organisms: None Reported Past Surgical History: Cholecystectomy, Hysterectomy Past Anesthesia/Blood Transfusion Reactions: No Reported Reaction Past Psychological History: Anxiety, Bipolar, Depression, Schizophrenia Smoking Status: Current some day smoker Past Alcohol Use History: None Reported Additional Past Alcohol Use History / Comment(s): SMOKES 1/2-3/4 PPD. STARTED SMOKING AGE 16 (1985) Past Drug Use History: Marijuana Additional Drug Use History / Comment(s): INSTRUCTED NOT TO USE 24 HRS PRIOR TO PROCEDURE - Past Family History Mother Family Medical History: No Reported History Medications and Allergies Home Medications Medication Instructions Recorded Confirmed Type Cyclobenzaprine [Flexeril] 10 mg PO TID PRN 11/22/16 04/09/19 History Docusate [Colace] 100 mg PO BID PRN 11/22/16 04/09/19 History Furosemide [Lasix] 20 mg PO BID 11/22/16 04/09/19 History Levothyroxine Sodium [Synthroid] 100 mcg PO DAILY 11/22/16 04/09/19 History Pravastatin Sodium [Pravachol] 80 mg PO HS 11/22/16 04/09/19 History Topiramate [Topamax] 50 mg PO BID 11/22/16 04/09/19 History HYDROcodone/APAP 7.5-325MG [Freedom 1 tab PO TID 10/26/17 04/09/19 History 7.5-325] Isosorbide Mononitrate ER [Imdur] 30 mg PO DAILY 02/20/19 04/09/19 History Vortioxetine Hydrobromide 10 mg PO DAILY 02/20/19 04/09/19 History [Trintellix] ALPRAZolam [Xanax] 0.25 mg PO Q8HR PRN 04/09/19 04/09/19 History Loratadine [Claritin] 10 mg PO DAILY 04/09/19 04/09/19 History Metoprolol Succinate [Toprol XL] 25 mg PO DAILY 04/09/19 04/09/19 History Spironolactone 12.5 mg PO DAILY 04/09/19 04/09/19 History Allergies Allergy/AdvReac Type Severity Reaction Status Date / Time Penicillins Allergy Rash/Hives Verified 04/09/19 12:34 codeine AdvReac Itching Verified 04/09/19 12:34 [From Tylenol-Codeine #3] Physical Exam Vitals: Vital Signs Temp Pulse Pulse Resp BP BP Pulse Ox 04/10/19 04:00 98.0 F 67 15 128/67 98 04/10/19 03:38 68 15 04/10/19 00:17 97.6 F 68 15 108/70 98 04/09/19 22:49 16 04/09/19 20:00 16 04/09/19 19:03 98.0 F 72 15 125/75 98 04/09/19 16:10 98.2 F 74 18 143/88 100 04/09/19 16:00 18 04/09/19 15:20 141/90 98 04/09/19 15:10 141/90 99 04/09/19 15:00 120/87 98 04/09/19 14:50 120/87 98 04/09/19 14:40 120/87 04/09/19 14:30 108/74 96 04/09/19 14:20 108/74 99 04/09/19 14:10 108/74 100 04/09/19 13:50 115/74 100 04/09/19 13:30 119/80 100 04/09/19 13:20 110/71 04/09/19 13:10 110/71 97 04/09/19 13:01 110/71 04/09/19 12:18 66 18 115/74 100 04/09/19 12:13 97.9 F 92 18 110/71 99 Intake and Output 04/09/19 04/10/19 04/10/19 22:59 06:59 14:59 Intake Total 240 Balance 240 Intake: Oral 240 Other: Voiding Method Toilet Toilet # Voids 1 1 - Constitutional General appearance: no acute distress - Respiratory Respiratory: bilateral: CTA - Cardiovascular Rhythm: regular Heart sounds: normal: S1, S2 Results 04/09/19 12:50 04/09/19 12:50 Cardiac Enzymes 04/09/19 04/09/19 04/09/19 Range/Units 12:50 12:50 18:30 AST 21 (14-36) U/L Troponin I <0.012 <0.012 (0.000-0.034) ng/mL 04/10/19 Range/Units 01:56 AST (14-36) U/L Troponin I <0.012 (0.000-0.034) ng/mL Coagulation 04/09/19 Range/Units 12:50 PT 11.0 (9.0-12.0) sec APTT 22.9 (22.0-30.0) sec CBC 04/09/19 Range/Units 12:50 WBC 7.1 (3.8-10.6) k/uL RBC 4.49 (3.80-5.40) m/uL Hgb 12.3 (11.4-16.0) gm/dL Hct 37.8 (34.0-46.0) % Plt Count 342 (150-450) k/uL Comprehensive Metabolic Panel 04/09/19 Range/Units 12:50 Sodium 142 (137-145) mmol/L Potassium 3.6 (3.5-5.1) mmol/L Chloride 112 H (98-107) mmol/L Carbon Dioxide 21 L (22-30) mmol/L BUN 7 (7-17) mg/dL Creatinine 0.72 (0.52-1.04) mg/dL Glucose 92 (74-99) mg/dL Calcium 9.9 (8.4-10.2) mg/dL AST 21 (14-36) U/L ALT 16 (9-52) U/L Alkaline Phosphatase 99 (38-126) U/L Total Protein 6.9 (6.3-8.2) g/dL Albumin 4.1 (3.5-5.0) g/dL Current Medications Generic Name Dose Route Start Last Admin Trade Name Freq PRN Reason Stop Dose Admin Acetaminophen 650 mg 04/09/19 15:26 04/09/19 18:15 Tylenol Tab PO 650 mg Q6HR PRN Administration Mild Pain or Fever > 100.5 Aspirin 325 mg 04/10/19 09:00 Aspirin PO DAILY TR Calcium Carbonate/Glycine 500 mg 04/09/19 16:49 04/09/19 17:12 Tums PO 500 mg TID PRN Administration Heartburn Sodium Chloride 1,000 mls @ 20 mls/hr 04/09/19 15:30 04/09/19 16:00 Saline 0.9% IV 20 mls/hr .Q24H TR Administration Morphine Sulfate 4 mg 04/09/19 15:26 04/10/19 02:29 Morphine Sulfate (Inj) IV 4 mg Q4HR PRN Administration Severe Pain Naloxone HCl 0.2 mg 04/09/19 15:26 Narcan IV Q2M PRN Opioid Reversal Ondansetron HCl 4 mg 04/09/19 15:26 04/09/19 21:01 Zofran IVP 4 mg Q8HR PRN Administration Nausea And Vomiting Pantoprazole Sodium 40 mg 04/10/19 09:00 Protonix IV DAILY TR Intake and Output 04/09/19 04/10/19 04/10/19 22:59 06:59 14:59 Intake Total 240 Balance 240 Intake: Oral 240 Other: Voiding Method Toilet Toilet # Voids 1 1 04/09/19 12:50 04/09/19 12:50 Assessment and Plan Assessment: Assessment #1 abdominal discomfort associated with nausea and vomiting and abdominal tenderness on examination #2 atypical chest discomfort in this patient who does have recurrent chest discomfort #3 history of smoking Plan #1 acute coronary event was ruled out #2 the patient underwent a coronary angiogram in November 2017 and that revealed normal coronaries #3 I would recommend obtaining an ultrasound of the abdomen to rule out any acute intra-abdominal process #40 with get an echocardiogram #5 no need to have any workup regarding the chest discomfort. Thank you for allowing us participate in the patient's care
[2019-04-10 07:38] VITALS: RESP 18
--- NOTE | 2019-04-10 08:36 | US ---
EXAMINATION TYPE: US abdomen complete DATE OF EXAM: 04/10/2019 COMPARISON: NONE CLINICAL HISTORY: ab pain. EXAM MEASUREMENTS: Liver Length: 15.1 cm Gallbladder Wall: Surgically absent cm CBD: 1.0 cm Spleen: 10.0 cm Right Kidney: 12.2 x 4.8 x 3.9 cm Left Kidney: 10.8 x 4.6 x 4.3 cm Pancreas: wnl Liver: No masses seen. Gallbladder: Surgically absent Evidence for sonographic Chinchilla's sign: No CBD: large in size. GB removed approx 45 years ago. Spleen: wnl Right Kidney: wnl Left Kidney: wnl Upper IVC: wnl Abd Aorta: wnl The liver is homogenous. The intrahepatic portion of the IVC and proximal abdominal aorta are within normal limits. Common bile duct is unremarkable. The visualized portions of the pancreas are homog enous. The spleen is unremarkable. Kidneys are symmetric and free of hydronephrosis. No renal lesi ons are seen. IMPRESSION: 1. Postsurgical CBD prominence. No distinct abnormality appreciated.
[2019-04-10] MEDS: CALCIUM CARBONATE 500 MG CHEWABLE PO PRN (08:41)
[2019-04-10] MEDS: ONDANSETRON 4 MG/2 ML VIAL IVP PRN (08:51)
[2019-04-10] MEDS ORDERED: PANTOPRAZOLE 40 MG/10 ML VIAL IV SCH (09:00)
[2019-04-10] MEDS ORDERED: ASPIRIN 325 MG TAB PO SCH (09:00)
[2019-04-10] MEDS ORDERED: ONDANSETRON 4 MG TAB PO ONE (09:13)
[2019-04-10 11:13] VITALS: BMI 19.4
[2019-04-10 11:49] VITALS: BP 95/65; PULSE 56; TEMP 97.6
--- NOTE | 2019-04-10 16:31 | ECHOF ---
Referral Reason:chest pain MEASUREMENTS -------- HEIGHT: 165.1 cm WEIGHT: 53.1 kg BP: 128/67 RVIDd: 2.6 cm (< 3.3) IVSd: 0.9 cm (0.6 - 1.1) LVIDd: 4.2 cm (3.9 - 5.3) LVPWd: 1.1 cm (0.6 - 1.1) IVSs: 1.5 cm LVIDs: 2.6 cm LVPWs: 1.3 cm LA Diam: 2.3 cm (2.7 - 3.8) LAESV Index (A-L): 12.75 ml/m Ao Diam: 2.9 cm (2.0 - 3.7) AV Cusp: 1.7 cm (1.5 - 2.6) MV EXCURSION: 13.536 mm (> 18.000) MV EF SLOPE: 138 mm/s (70 - 150) EPSS: 0.9 cm MV E Faustino: 0.78 m/s MV DecT: 234 ms MV A Faustino: 0.70 m/s MV E/A Ratio: 1.12 RAP: 5.00 mmHg RVSP: 27.04 mmHg FINDINGS -------- Sinus rhythm. This was a technically adequate study. The left ventricular size is normal. Left ventricular wall thickness is normal. Overall left vent ricular systolic function is low-normal with, an EF between 50 - 55 %. The right ventricle is normal in size. Normal LA size by volume 22+/-6 ml/m2. The right atrium is normal in size. Interatrial and interventricular septum intact. The aortic valve is trileaflet and appears structurally normal. The mitral valve leaflets are mildly thickened. Mild tricuspid regurgitation present. Right ventricular systolic pressure is normal at < 35 mmHg. Trace/mild (physiologic) pulmonic regurgitation. The aortic root size is normal. Normal inferior vena cava with normal inspiratory collapse consistent with estimated right atrial pre ssure of 5 mmHg. There is no pericardial effusion. CONCLUSIONS -------- 1. Sinus rhythm. 2. This was a technically adequate study. 3. The left ventricular size is normal. 4. Left ventricular wall thickness is normal. 5. Overall left ventricular systolic function is low-normal with, an EF between 50 - 55 %. 6. The right ventricle is normal in size. 7. Normal LA size by volume 22+/-6 ml/m2. 8. The right atrium is normal in size. 9. Interatrial and interventricular septum intact. 10. The aortic valve is trileaflet and appears structurally normal. 11. The mitral valve leaflets are mildly thickened. 12. Mild tricuspid regurgitation present. 13. Right ventricular systolic pressure is normal at < 35 mmHg. 14. Trace/mild (physiologic) pulmonic regurgitation. 15. The aortic root size is normal. 16. Normal inferior vena cava with normal inspiratory collapse consistent with estimated right atrial pressure of 5 mmHg. 17. There is no pericardial effusion. DISPENSARY ATTENDANT: Vandana Multani RDCS
--- NOTE | 2019-04-10 18:38 | HP ---
HISTORY AND PHYSICAL CHIEF COMPLAINT: Chest and abdominal pain. HISTORY OF PRESENT ILLNESS: This is another admission for this 48-year-old white female with a longstanding history of chest pain, anxiety and COPD. She presented to the emergency room with a 4- or 5- day history of chest discomfort, nausea and vomiting. Pain is very atypical. She describes it as being a sharp pain in the chest and going "down the abdomen toward the vagina." There is no associated shortness of breath, nausea, diaphoresis, radiation of the pain to the back, jaws, neck, arms, etc. Labs were normal in the ER. REVIEW OF SYSTEMS: She denies any headaches, neurologic problems, change in vision or hearing, cough, hemoptysis, sputum production, murmurs, rheumatic fever, orthopnea, PND, nausea, vomiting, hematemesis, melena, hematochezia, jaundice, hepatitis, cirrhosis, hematuria, renal failure, frequency, urgency, vaginal discharge or bleeding, diabetes, etc. Past medical history, family history, and personal and social histories are all otherwise unremarkable. She is ALLERGIC TO PENICILLIN and CODEINE. She follows with Dr. Rees for COPD. She does go to [facility] for depression. She states that she has been out of and needs Xanax, Flexeril, pravastatin and possibly others. She also gets Vicodin 7.[address] Dillon. She continues to smoke, despite her history of lung disease. She is a recovering alcoholic. PHYSICAL EXAMINATION: Blood pressure 120/80 with a pulse of 80, respirations 12, and she is afebrile. In general she appeared to be slightly pale and in no acute distress. Skin was dry. Lymph nodes were not enlarged. Head, ears, eyes, nose, mouth and throat were normal and neck veins were not distended. Thyroid was not enlarged. The chest was clear. Cardiac exam demonstrated sinus tachycardia with no murmurs or extra sounds. The abdomen was flat, soft, nontender. Bowel sounds were present. Extremities were normal. Neurologically she was intact. She is admitted to the hospital with the diagnoses: 1. Atypical chest pain. 2. Abdominal pain. 3. Chronic obstructive pulmonary disease. 4. Chronic anxiety. 5. Chronic pain. PLAN: 1. Bed rest. 2. IV fluids. 3. Serial EKGs and enzymes. 4. Cardiology consult. MMODL / IJN: [id number] /
--- NOTE | 2019-04-10 23:23 | DS ---
DISCHARGE SUMMARY CHIEF COMPLAINT: Chest pain. HISTORY OF PRESENT ILLNESS AND PHYSICAL EXAMINATION: Details of this lady's history and physical can be found in the initial workup. LABORATORY STUDIES: While she was in the hospital she had laboratory studies, details of which can be found in the laboratory section of her chart. COURSE IN THE HOSPITAL: After admission she was placed on bedrest, started on intravenous fluids, and she had serial EKGs and enzymes and she was seen by Cardiology. Studies were negative and Cardiology felt that it was not necessary to go any further with any other studies and that she could go home. She will be discharged on her usual activity and diet and will follow up in the office in several days. FINAL DIAGNOSES: 1. Atypical chest pain. 2. Chronic obstructive pulmonary disease. 3. Anxiety. OPERATIONS: None. CONSULTATION: Cardiology. She is improved. MMODL / IJN: [id number] /
[2019-04-11] MEDS ORDERED: PANTOPRAZOLE 40 MG TABLET PO SCH (07:30)
== END 2019-04-10 17:20 | disposition home or self-care (01) ==
LOC: EC 12:04 → 1SOBS 15:26
PROVIDERS: ADMIT Family Medicine; ATTEND Family Medicine
DX: R07.89 Other chest pain (principal); J44.9 Chronic obstructive pulmonary disease, unspecified; F41.9 Anxiety disorder, unspecified; I50.9 Heart failure, unspecified; M79.7 Fibromyalgia; K21.9 Gastro-esophageal reflux disease without esophagitis; R00.0 Tachycardia, unspecified; R19.7 Diarrhea, unspecified; R11.2 Nausea with vomiting, unspecified; G89.29 Other chronic pain; R10.9 Unspecified abdominal pain; F17.210 Nicotine dependence, cigarettes, uncomplicated; R10.819 Abdominal tenderness, unspecified site; F31.9 Bipolar disorder, unspecified; F20.9 Schizophrenia, unspecified; F10.21 Alcohol dependence, in remission; Z79.891 Long term (current) use of opiate analgesic; Z79.890 Hormone replacement therapy; Z79.899 Other long term (current) drug therapy; Z88.0 Allergy status to penicillin; Z88.5 Allergy status to narcotic agent; Z87.11 Personal history of peptic ulcer disease; Z90.49 Acquired absence of other specified parts of digestive tract; Z90.710 Acquired absence of both cervix and uterus
CPT/HCPCS: 96375 ×2; 96376 ×3; 96374; 99285; 36415; 93005; 93306; 80053; 83690; 83735; 84484 ×2; 85025; 85610; 85730; 71046; 76700; G0378 ×2; J2270 ×2; J2405; C9113 ×2

== ENCOUNTER 2019-04-23 14:36 | Emergency (ER) | payer OTHER ==
[2019-04-23] MEDS ORDERED: ONDANSETRON 4 MG/2 ML VIAL IVP STA (15:23)
[2019-04-23] MEDS ORDERED: SODIUM CHLORIDE 0.9% 500 ML 500 ML IV STA ×2 (15:23→16:07)
[2019-04-23 15:24] VITALS: RESP 16
--- NOTE | 2019-04-23 15:30 | ED ---
General Adult HPI - General Chief complaint: Abdominal Pain Stated complaint: abdominal pain & eye problems Time Seen by Provider: 04/23/19 14:40 Source: patient, RN notes reviewed Mode of arrival: ambulatory Limitations: no limitations - History of Present Illness Initial comments: This is a 48-year-old female presents emergency department stating that she has had abdominal pain on the left side for approximately 1 month. Patient states she has been nauseated as well per patient denies any vomiting or diarrhea. Patient denies any fever. Patient states she's had her gallbladder out and had a partial hysterectomy years ago. Patient she just saw her primary medical care doctor yesterday and he is supposed to follow-up with her but she decided come emergency department anyhow. Patient also complains of a year-long history of chronic eye drainage in the morning. Patient states her thigh doctor told her it was ALLERGIES but is still occurring so she has presented with the complaint. Patient states it is been unchanged for a year. - Related Data Home Medications Medication Instructions Recorded Confirmed Cyclobenzaprine [Flexeril] 10 mg PO TID PRN 11/22/16 04/23/19 Docusate [Colace] 100 mg PO BID PRN 11/22/16 04/23/19 Furosemide [Lasix] 20 mg PO BID 11/22/16 04/23/19 Levothyroxine Sodium [Synthroid] 100 mcg PO DAILY 11/22/16 04/23/19 Pravastatin Sodium [Pravachol] 80 mg PO HS 11/22/16 04/23/19 Topiramate [Topamax] 50 mg PO BID 11/22/16 04/23/19 HYDROcodone/APAP 7.5-325MG [[place] 1 tab PO TID 10/26/17 04/23/19 7.5-325] Vortioxetine Hydrobromide 10 mg PO HS 02/20/19 04/23/19 [Trintellix] ALPRAZolam [Xanax] 0.25 mg PO Q8HR PRN 04/09/19 04/23/19 Loratadine [Claritin] 10 mg PO DAILY 04/09/19 04/23/19 Metoprolol Succinate [Toprol XL] 25 mg PO DAILY 04/09/19 04/23/19 Spironolactone 12.5 mg PO DAILY 04/09/19 04/23/19 Acetaminophen/Diphenhydramine 1 tab PO HS PRN 04/23/19 04/23/19 [Tylenol PM 500-25mg] Nicotine 21Mg/24Hr Patch [Habitrol 1 patch TRANSDERM DAILY 04/23/19 04/23/19 21Mg/24Hr Patch] Allergies Allergy/AdvReac Type Severity Reaction Status Date / Time codeine Allergy Itching Verified 04/23/19 15:21 [From Tylenol-Codeine #3] Penicillins Allergy Rash/Hives Verified 04/23/19 15:21 Review of Systems ROS Statement: Those systems with pertinent positive or pertinent negative responses have been documented in the HPI. ROS Other: All systems not noted in ROS Statement are negative. Past Medical History Past Medical History: Chest Pain / Angina, Heart Failure, COPD, Fibromyalgia, GERD/Reflux, Thyroid Disorder Additional Past Medical History / Comment(s): STATES IRREGULAR HEARTBEAT, HEADACHES, BRONCHITIS, SEE CARDIOLOGY H & P. peptic ulcers, anxiety, hyster, choley. History of Any Multi-Drug Resistant Organisms: None Reported Past Surgical History: Cholecystectomy, Hysterectomy Past Anesthesia/Blood Transfusion Reactions: No Reported Reaction Past Psychological History: Anxiety, Bipolar, Depression, Schizophrenia Smoking Status: Current some day smoker Past Alcohol Use History: None Reported Past Drug Use History: Marijuana - Past Family History Mother Family Medical History: No Reported History General Exam - General Exam Comments Initial Comments: GENERAL: Patient is well-developed and well-nourished. Patient is nontoxic and well- hydrated and is in mild distress. ENT: Neck is soft and supple. No significant lymphadenopathy is noted. Oropharynx is clear. Moist mucous membranes. Neck has full range of motion without eliciting any pain. EYES: The sclera were anicteric and conjunctiva were pink and moist. Extraocular movements were intact and pupils were equal round and reactive to light. Eyelids were unremarkable. I see no signs of injection drainage or swelling. Patient has a small abrasion on the upper eyelid near the canthus which she states was bleeding last night when she scraped it PULMONARY: Unlabored respirations. Good breath sounds bilaterally. No audible rales rhonchi or wheezing was noted. CARDIOVASCULAR: There is a regular rate and rhythm without any murmurs gallops or rubs. ABDOMEN: Left-sided abdominal pain SKIN: Skin is clear with no lesions or rashes and otherwise unremarkable. NEUROLOGIC: Patient is alert and oriented x3. Cranial nerves II through XII are grossly intact. Motor and sensory are also intact. Normal speech, volume and content. Symmetrical smile. MUSCULOSKELETAL: Normal extremities with adequate strength and full range of motion. LYMPHATICS: No significant lymphadenopathy is noted PSYCHIATRIC: Normal psychiatric evaluation. Limitations: no limitations Course Vital Signs 04/23/19 04/23/19 04/23/19 14:38 15:23 15:57 Temperature 98.5 F 98.2 F Pulse Rate 90 77 73 Respiratory 18 16 16 Rate Blood Pressure 96/65 97/74 86/56 O2 Sat by Pulse 100 99 99 Oximetry 04/23/19 04/23/19 04/23/19 16:31 17:17 17:51 Temperature Pulse Rate 74 80 77 Respiratory 16 16 16 Rate Blood Pressure 90/57 89/59 88/54 O2 Sat by Pulse 94 L 93 L 100 Oximetry 04/23/19 17:56 Temperature Pulse Rate 79 Respiratory 16 Rate Blood Pressure 106/72 O2 Sat by Pulse 99 Oximetry Medical Decision Making - Medical Decision Making CT of the abdomen and pelvis shows no acute abnormality. - Lab Data Result diagrams: 04/23/19 15:33 04/23/19 15:33 Lab Results 04/23/19 04/23/19 04/23/19 Range/Units 15:33 15:33 15:33 WBC 7.8 (3.8-10.6) k/uL RBC 4.13 (3.80-5.40) m/uL Hgb 11.5 (11.4-16.0) gm/dL Hct 35.7 (34.0-46.0) % MCV 86.4 (80.0-100.0) fL MCH 27.9 (25.0-35.0) pg MCHC 32.3 (31.0-37.0) g/dL RDW 17.3 H (11.5-15.5) % Plt Count 386 (150-450) k/uL Neutrophils % (Manual) 29 % Lymphocytes % (Manual) 60 % Monocytes % (Manual) 9 % Eosinophils % (Manual) 2 % Neutrophils # (Manual) 2.26 (1.3-7.7) k/uL Lymphocytes # (Manual) 4.68 (1.0-4.8) k/uL Monocytes # (Manual) 0.70 (0-1.0) k/uL Eosinophils # (Manual) 0.16 (0-0.7) k/uL Nucleated RBCs 0 (0-0) /100 WBC Manual Slide Review Performed Hypochromasia Slight Anisocytosis Slight Sodium 141 (137-145) mmol/L Potassium 4.6 (3.5-5.1) mmol/L Chloride 108 H (98-107) mmol/L Carbon Dioxide 27 (22-30) mmol/L Anion Gap 6 mmol/L BUN 11 (7-17) mg/dL Creatinine 0.89 (0.52-1.04) mg/dL Est GFR (CKD-EPI)AfAm 89 (>60 ml/min/1.73 sqM) Est GFR (CKD-EPI)NonAf 78 (>60 ml/min/1.73 sqM) Glucose 70 L (74-99) mg/dL Calcium 9.8 (8.4-10.2) mg/dL Total Bilirubin 0.2 (0.2-1.3) mg/dL AST 21 (14-36) U/L ALT 17 (9-52) U/L Alkaline Phosphatase 80 (38-126) U/L Total Protein 6.8 (6.3-8.2) g/dL Albumin 4.0 (3.5-5.0) g/dL Amylase 46 (30-110) U/L Lipase 88 (23-300) U/L Urine Color Light Yellow Urine Appearance Clear (Clear) Urine pH 5.0 (5.0-8.0) Ur Specific Elizabeth 1.007 (1.001-1.035) Urine Protein Negative (Negative) Urine Glucose (UA) Negative (Negative) Urine Ketones Negative (Negative) Urine Blood Negative (Negative) Urine Nitrite Negative (Negative) Urine Bilirubin Negative (Negative) Urine Urobilinogen <2.0 (<2.0) mg/dL Ur Leukocyte Esterase Negative (Negative) Disposition Clinical Impression: Abdominal pain Disposition: HOME SELF-CARE Instructions (If sedation given, give patient instructions): Abdominal Pain (ED) Is patient prescribed a controlled substance at d/c from ED?: No Referrals: Jonathon Gould MD [Primary Care Provider] - 1-2 days Time of Disposition: 18:44
[2019-04-23 15:52] LABS: Appearance,Urine Clear (Clear); Bilirubin,Urine Negative (Negative); Blood,Urine Negative (Negative); Color,Urine Light Yellow; Glucose,Urine (UA) Negative (Negative); Ketones,Urine Negative (Negative); Leukocyte Esterase,Urine Negative (Negative); Nitrite,Urine Negative (Negative); Protein,Urine Negative (Negative); Specific Gravity,Urine 1.007 (1.001-1.035); Urobilinogen,Urine <2.0 mg/dL (<2.0)
[2019-04-23 15:55] LABS: Calcium 9.8 mg/dL (8.4-10.2); Potassium 4.6 mmol/L (3.5-5.1); Total Bilirubin 0.2 mg/dL (0.2-1.3); Total Protein 6.8 g/dL (6.3-8.2)
[2019-04-23 16:04] LABS: Anisocytosis Slight; HCT 35.7 % (34.0-46.0); HGB 11.5 gm/dL (11.4-16.0); Hypochromasia Slight; MCH 27.9 pg (25.0-35.0); MCHC 32.3 g/dL (31.0-37.0); MCV 86.4 fL (80.0-100.0); Mean Platelet Volume 7.2; Platelet Count 386 k/uL (150-450); RBC 4.13 m/uL (3.80-5.40); RDW 17.3 % (11.5-15.5); WBC 7.8 k/uL (3.8-10.6)
[2019-04-23] MEDS ORDERED: KETOROLAC 30 MG/ML 1 ML VIAL IVP STA (16:06)
[2019-04-23 16:35] LABS: Eosinophils # (M) 0.16 k/uL (0-0.7); Lymphocytes # (M) 4.68 k/uL (1.0-4.8); Neutrophils # (M) 2.26 k/uL (1.3-7.7); Neutrophils % (M) 29 %; Nucleated Red Blood Cells 0 /100 WBC (0-0); Total Cells Counted 100
--- NOTE | 2019-04-23 18:02 | CT ---
EXAMINATION TYPE: CT abdomen pelvis w con DATE OF EXAM: 04/23/2019 COMPARISON: Abdominal ultrasound 04/10/2019 HISTORY: LLQ pain CT DLP: 459.3 mGycm Automated exposure control for dose reduction was used. TECHNIQUE: Helical acquisition of images was performed from the lung bases through the pelvis. CONTRAST: Performed without Oral Contrast and with IV Contrast, patient injected with 100 mL of Isovu e 300. FINDINGS: LUNG BASES: No significant abnormality is appreciated. LIVER/GB: There is a solitary 1.7 cm diameter hyperdense/the first contrast phase of the study which is not visible on the second contrast phase of the study. This usually reflects incidental focal nodu lar hyperplasia, which can be proven using outpatient MRI evaluation. Liver is otherwise unremarkable . PANCREAS: No significant abnormality is seen. SPLEEN: No significant abnormality is seen. ADRENALS: No significant abnormality is seen. KIDNEYS: No significant abnormality is seen. FREE AIR: No free air is visualized. RETROPERITONEAL ADENOPATHY: None visualized REPRODUCTIVE ORGANS: No significant abnormality is seen URINARY BLADDER: No significant abnormality is seen. PELVIC ADENOPATHY: None visualized. OSSEOUS STRUCTURES: No significant abnormality is seen. BOWEL: No significant abnormality is seen. There is prominent volume of stool throughout the colon, with redundancy of the colon. There is no diverticulitis. OTHER: No acute vascular findings. IMPRESSION: NO ACUTE PROCESS.
[2019-04-23 19:02] VITALS: BP 98/66; PULSE 77; TEMP 98
== END 2019-04-23 19:29 | disposition home or self-care (01) ==
LOC: EC 14:36
DX: R10.9 Unspecified abdominal pain (principal); R11.0 Nausea; S00.219A Abrasion of unspecified eyelid and periocular area, initial encounter; I50.9 Heart failure, unspecified; J44.9 Chronic obstructive pulmonary disease, unspecified; M79.7 Fibromyalgia; K21.9 Gastro-esophageal reflux disease without esophagitis; E07.9 Disorder of thyroid, unspecified; F31.9 Bipolar disorder, unspecified; F17.200 Nicotine dependence, unspecified, uncomplicated; Z87.11 Personal history of peptic ulcer disease; Z90.49 Acquired absence of other specified parts of digestive tract; Z90.710 Acquired absence of both cervix and uterus; Z79.890 Hormone replacement therapy; Z79.891 Long term (current) use of opiate analgesic; Z79.899 Other long term (current) drug therapy; Z88.0 Allergy status to penicillin; Z88.5 Allergy status to narcotic agent; X58.XXXA Exposure to other specified factors, initial encounter
CPT/HCPCS: 36415; 80053; 82150; 83690; 85025; 81003; 74177; 99284; 96374; 96375; 96361 ×4; J2405; J1885; Q9967

== ENCOUNTER → 2019-05-15 | Outpatient (CLI) | payer OTHER ==
--- NOTE | 2019-05-29 09:02 | MM ---
Reason for exam: additional evaluation requested from prior study. Last mammogram was performed 2 years and 11 months ago. History: Family history of breast cancer in paternal aunt and breast cancer in paternal cousin. Ultrasound-guided core biopsy of the right breast, 2014. [facility] Mammo w CAD ELIDA Bilateral CC and MLO view(s) were taken. Prior study comparison: June 21, 2016, mammogram, performed at [facility]. May 06, 2015, mammogram, performed at [facility]. There are scattered fibroglandular densities. No significant new findings when compared with previous films. These results were verbally communicated with the patient on 05/28/19. ASSESSMENT: Benign, BI-RAD 2 RECOMMENDATION: Routine screening mammogram of both breasts in 1 year.
== END | disposition home or self-care (01) ==
LOC: RADMAMWWP 15:43
PROVIDERS: ATTEND Family Medicine
DX: R92.8 Other abnormal and inconclusive findings on diagnostic imaging of breast (principal)
CPT/HCPCS: 77066

== ENCOUNTER 2019-05-21 12:52 | Observation (INO) | payer OTHER ==
[2019-05-21] MEDS ORDERED: ASPIRIN 81 MG PO STA (13:07)
--- NOTE | 2019-05-21 13:11 | ED ---
General Adult HPI - General Chief complaint: Arrhythmia/Palpitations Stated complaint: Chest pressure/pain Time Seen by Provider: 05/21/19 12:55 Source: patient, RN notes reviewed Mode of arrival: wheelchair Limitations: no limitations - History of Present Illness Initial comments: This is a 48-year-old female presents emergency Department with a past medical history significant for smoking and high cholesterol. Patient states he also had been giving her medication to keep her heart rate down. Patient states today she has been having chest heaviness since 10:00 this morning she went to see her vice president [employer] and they recommended she come immediately to the emergency department. Patient states the vice president [employer] told her she would have to go up on her heart rate medication caused her heart rate continues to be fast. Patient denies any sweating episodes however she does states she is short of breath. Patient denies any radiation of the pain. Patient does describe the pain as pressure. Patient denies abdominal pain. Patient denies any nausea vomiting. Patient states she has had some chills lately but no fever she denies any recent cough. Patient denies any calf pain or leg swelling. - Related Data Home Medications Medication Instructions Recorded Confirmed Cyclobenzaprine [Flexeril] 10 mg PO TID PRN 11/22/16 05/21/19 Docusate [Colace] 100 mg PO BID PRN 11/22/16 05/21/19 Furosemide [Lasix] 20 mg PO BID 11/22/16 05/21/19 Levothyroxine Sodium [Synthroid] 100 mcg PO DAILY 11/22/16 05/21/19 Pravastatin Sodium [Pravachol] 80 mg PO HS 11/22/16 05/21/19 Topiramate [Topamax] 50 mg PO BID 11/22/16 05/21/19 HYDROcodone/APAP 7.5-325MG [[place] 1 tab PO TID 10/26/17 05/21/19 7.5-325] Vortioxetine Hydrobromide 10 mg PO HS 02/20/19 05/21/19 [Trintellix] Loratadine [Claritin] 10 mg PO DAILY 04/09/19 05/21/19 Metoprolol Succinate [Toprol XL] 50 mg PO DAILY 04/09/19 05/21/19 Spironolactone 12.5 mg PO DAILY 04/09/19 05/21/19 Acetaminophen/Diphenhydramine 1 tab PO HS PRN 04/23/19 05/21/19 [Tylenol PM 500-25mg] Nicotine 21Mg/24Hr Patch [Habitrol 1 patch TRANSDERM DAILY 04/23/19 05/21/19 21Mg/24Hr Patch] ALPRAZolam [Xanax] 0.5 mg PO TID PRN 05/21/19 05/21/19 Ergocalciferol (Vitamin D2) 50,000 unit PO TU 05/21/19 05/21/19 [Vitamin D2] Allergies Allergy/AdvReac Type Severity Reaction Status Date / Time codeine Allergy Itching Verified 05/21/19 13:05 [From Tylenol-Codeine #3] Penicillins Allergy Rash/Hives Verified 05/21/19 13:05 Review of Systems ROS Statement: Those systems with pertinent positive or pertinent negative responses have been documented in the HPI. ROS Other: All systems not noted in ROS Statement are negative. Past Medical History Past Medical History: Chest Pain / Angina, Heart Failure, COPD, Fibromyalgia, GERD/Reflux, Thyroid Disorder Additional Past Medical History / Comment(s): STATES IRREGULAR HEARTBEAT, HEADACHES, BRONCHITIS, SEE CARDIOLOGY H & P. peptic ulcers, anxiety, hyster, choley. History of Any Multi-Drug Resistant Organisms: None Reported Past Surgical History: Cholecystectomy, Hysterectomy Past Anesthesia/Blood Transfusion Reactions: No Reported Reaction Past Psychological History: Anxiety, Bipolar, Depression, Schizophrenia Smoking Status: Current some day smoker Past Alcohol Use History: None Reported Past Drug Use History: Marijuana - Past Family History Mother Family Medical History: No Reported History General Exam - General Exam Comments Initial Comments: GENERAL: Patient is well-developed and well-nourished. Patient is nontoxic and well- hydrated and is in mild distress. ENT: Neck is soft and supple. No significant lymphadenopathy is noted. Oropharynx is clear. Moist mucous membranes. Neck has full range of motion without eliciting any pain. EYES: The sclera were anicteric and conjunctiva were pink and moist. Extraocular movements were intact and pupils were equal round and reactive to light. Eyelid s were unremarkable. PULMONARY: Unlabored respirations. Good breath sounds bilaterally. No audible rales rhonchi or wheezing was noted. CARDIOVASCULAR: There is a regular rate and rhythm without any murmurs gallops or rubs. ABDOMEN: Soft and nontender with normal bowel sounds. SKIN: Skin is clear with no lesions or rashes and otherwise unremarkable. NEUROLOGIC: Patient is alert and oriented x3. Cranial nerves II through XII are grossly intact. Motor and sensory are also intact. Normal speech, volume and content. Symmetrical smile. MUSCULOSKELETAL: Normal extremities with adequate strength and full range of motion. No lower extremity swelling or edema. No calf tenderness. LYMPHATICS: No significant lymphadenopathy is noted PSYCHIATRIC: Normal psychiatric evaluation. Limitations: no limitations Course Vital Signs 05/21/19 05/21/19 12:54 13:19 Temperature 98.1 F Pulse Rate 106 H Respiratory 18 Rate Blood Pressure 107/72 99/63 O2 Sat by Pulse 99 Oximetry Medical Decision Making - Medical Decision Making EKG shows normal sinus rhythm at 91 bpm NM interval is 136 QRS is 78 QT interval 380 QTC is 477. Patient's EKG shows no ST segment elevation or depression or T wave abnormalities are noted. Chest x-ray shows no acute abnormality. - Lab Data Result diagrams: 05/21/19 13:15 05/21/19 13:15 Lab Results 05/21/19 05/21/19 05/21/19 Range/Units 13:15 13:15 13:15 WBC 7.9 (3.8-10.6) k/uL RBC 4.21 (3.80-5.40) m/uL Hgb 11.7 (11.4-16.0) gm/dL Hct 37.0 (34.0-46.0) % MCV 87.9 (80.0-100.0) fL MCH 27.8 (25.0-35.0) pg MCHC 31.6 (31.0-37.0) g/dL RDW 17.8 H (11.5-15.5) % Plt Count 378 (150-450) k/uL Neutrophils % 38 % Lymphocytes % 49 % Monocytes % 6 % Eosinophils % 2 % Basophils % 1 % Neutrophils # 3.0 (1.3-7.7) k/uL Lymphocytes # 3.9 (1.0-4.8) k/uL Monocytes # 0.5 (0-1.0) k/uL Eosinophils # 0.2 (0-0.7) k/uL Basophils # 0.1 (0-0.2) k/uL Hypochromasia Slight Anisocytosis Slight PT (9.0-12.0) sec INR (<1.2) APTT (22.0-30.0) sec D-Dimer (<0.60) mg/L FEU Sodium 141 (137-145) mmol/L Potassium 4.6 (3.5-5.1) mmol/L Chloride 107 (98-107) mmol/L Carbon Dioxide 25 (22-30) mmol/L Anion Gap 9 mmol/L BUN 9 (7-17) mg/dL Creatinine 0.78 (0.52-1.04) mg/dL Est GFR (CKD-EPI)AfAm >90 (>60 ml/min/1.73 sqM) Est GFR (CKD-EPI)NonAf >90 (>60 ml/min/1.73 sqM) Glucose 102 H (74-99) mg/dL Calcium 9.6 (8.4-10.2) mg/dL Magnesium 2.0 (1.6-2.3) mg/dL Total Bilirubin 0.3 (0.2-1.3) mg/dL AST 24 (14-36) U/L ALT 25 (9-52) U/L Alkaline Phosphatase 89 (38-126) U/L Troponin I (0.000-0.034) ng/mL NT-Pro-B Natriuret Pep 201 pg/mL Total Protein 6.7 (6.3-8.2) g/dL Albumin 3.8 (3.5-5.0) g/dL 05/21/19 05/21/19 05/21/19 Range/Units 13:15 13:15 13:15 WBC (3.8-10.6) k/uL RBC (3.80-5.40) m/uL Hgb (11.4-16.0) gm/dL Hct (34.0-46.0) % MCV (80.0-100.0) fL MCH (25.0-35.0) pg MCHC (31.0-37.0) g/dL RDW (11.5-15.5) % Plt Count (150-450) k/uL Neutrophils % % Lymphocytes % % Monocytes % % Eosinophils % % Basophils % % Neutrophils # (1.3-7.7) k/uL Lymphocytes # (1.0-4.8) k/uL Monocytes # (0-1.0) k/uL Eosinophils # (0-0.7) k/uL Basophils # (0-0.2) k/uL Hypochromasia Anisocytosis PT 9.8 (9.0-12.0) sec INR 0.9 (<1.2) APTT 25.8 (22.0-30.0) sec D-Dimer 0.30 (<0.60) mg/L FEU Sodium (137-145) mmol/L Potassium (3.5-5.1) mmol/L Chloride (98-107) mmol/L Carbon Dioxide (22-30) mmol/L Anion Gap mmol/L BUN (7-17) mg/dL Creatinine (0.52-1.04) mg/dL Est GFR (CKD-EPI)AfAm (>60 ml/min/1.73 sqM) Est GFR (CKD-EPI)NonAf (>60 ml/min/1.73 sqM) Glucose (74-99) mg/dL Calcium (8.4-10.2) mg/dL Magnesium (1.6-2.3) mg/dL Total Bilirubin (0.2-1.3) mg/dL AST (14-36) U/L ALT (9-52) U/L Alkaline Phosphatase (38-126) U/L Troponin I <0.012 (0.000-0.034) ng/mL NT-Pro-B Natriuret Pep pg/mL Total Protein (6.3-8.2) g/dL Albumin (3.5-5.0) g/dL Disposition Clinical Impression: Chest pain Disposition: ADMITTED IP TO THIS HOSP Referrals: Jonathon Gould MD [Primary Care Provider] - 1-2 days Time of Disposition: 15:28
[2019-05-21] MEDS: NITROGLYCERIN OINT 1 INCH/GM PACKET TOPICAL STA ×2 (13:17→14:22)
[2019-05-21 13:33] LABS: Anisocytosis Slight; Basophils # (A) 0.1 k/uL (0-0.2); Basophils % (A) 1 %; Eosinophils # (A) 0.2 k/uL (0-0.7); Eosinophils % (A) 2 %; HGB 11.7 gm/dL (11.4-16.0); Hypochromasia Slight; Lymphocytes # (A) 3.9 k/uL (1.0-4.8); Lymphocytes % (A) 49 %; MCH 27.8 pg (25.0-35.0); MCHC 31.6 g/dL (31.0-37.0); MCV 87.9 fL (80.0-100.0); Mean Platelet Volume 7.3; Monocytes # (A) 0.5 k/uL (0-1.0); Monocytes % (A) 6 %; Neutrophils % (A) 38 %; Platelet Count 378 k/uL (150-450); RBC 4.21 m/uL (3.80-5.40); RDW 17.8 % (11.5-15.5); WBC 7.9 k/uL (3.8-10.6)
[2019-05-21 13:37] LABS: ALT 25 U/L (9-52); AST 24 U/L (14-36); African American GFR (CKD) >90 (>60 ml/min/1.73 sqM); Albumin 3.8 g/dL (3.5-5.0); Alkaline Phosphatase 89 U/L (38-126); Anion Gap 9 mmol/L; Blood Urea Nitrogen 9 mg/dL (7-17); Calcium 9.6 mg/dL (8.4-10.2); Carbon Dioxide 25 mmol/L (22-30); Chloride 107 mmol/L (98-107); Glucose 102 mg/dL (74-99); Potassium 4.6 mmol/L (3.5-5.1); Sodium 141 mmol/L (137-145); Total Bilirubin 0.3 mg/dL (0.2-1.3); Total Protein 6.7 g/dL (6.3-8.2)
[2019-05-21 13:44] LABS: INR 0.9 (<1.2); Partial Thromboplastin Time 25.8 sec (22.0-30.0); Prothrombin Time 9.8 sec (9.0-12.0)
--- NOTE | 2019-05-21 13:50 | XR ---
EXAMINATION TYPE: XR chest 2V DATE OF EXAM: 05/21/2019 COMPARISON: 04/09/2019 HISTORY: Chest pain and shortness of breath TECHNIQUE: Frontal and lateral views of the chest are obtained. FINDINGS: There is no focal air space opacity, pleural effusion, or pneumothorax seen. Minimal right apical pleural parenchymal scarring. Pulmonary hyperinflation is again seen relating to underlying COPD. Increased retrosternal airspace on the lateral also relates underlying COPD. The cardiac silhou ette size is within normal limits. The osseous structures are intact. IMPRESSION: No acute cardiopulmonary process. Underlying COPD again seen.
[2019-05-21] MEDS ORDERED: NITROGLYCERIN SL TABS 0.4 MG TAB SUBLINGUAL PRN (15:28)
[2019-05-21] MEDS ORDERED: ACETAMINOPHEN TAB 500 MG TAB PO PRN (17:56)
[2019-05-21] MEDS ORDERED: DOCUSATE 100 MG CAP PO PRN (17:56)
[2019-05-21] MEDS ORDERED: diphenhydrAMINE 25 MG CAP PO PRN (18:02)
[2019-05-21] MEDS: FUROSEMIDE 20 MG TAB PO SCH (18:10)
[2019-05-21] MEDS: NITROGLYCERIN OINT 1 INCH/GM PACKET TOPICAL SCH ×2 (18:10→23:05)
[2019-05-21] MEDS: ALPRAZolam 0.5 MG TAB PO PRN (18:11)
[2019-05-21] MEDS: ACETAMINOPHEN TAB 500 MG TAB PO PRN (18:33)
[2019-05-21] MEDS: TOPIRAMATE 25 MG TAB PO SCH (20:49)
[2019-05-21] MEDS: VORTIOXETINE HYDROBROMIDE 10 MG TABLET PO SCH ×2 (20:50→20:52)
[2019-05-22 02:11] LABS: Cholesterol 126 mg/dL (<200); HDL Cholesterol 44 mg/dL (40-60); LDL Cholesterol,Calculated 65 mg/dL (0-99); Triglycerides 86 mg/dL (<150)
[2019-05-22] MEDS: NITROGLYCERIN OINT 1 INCH/GM PACKET TOPICAL SCH (05:03)
[2019-05-22 05:46] VITALS: RESP 18
[2019-05-22] MEDS ORDERED: LEVOTHYROXINE 100 MCG TAB PO SCH (06:30)
--- NOTE | 2019-05-22 08:20 | P.CRDCN ---
History of Present Illness Consult date: 05/22/19 History of present illness: This 48-year-old female with history of smoking and also cholesterol and also with history of of manic-depression state who went to cardiology office yesterday with complaints of chest heaviness. Patient was referred to emergency room for further evaluation. This patient had a cardiac catheterization last year which he did not reveal any significant obstructive disease. Patient had admissions on several occasions with chest pains. Her cardiac enzymes and EKG have been negative. She was complaining of pain on the left side of the chest which was increasing on deep breathing. No tenderness. She complained of having some sweating. Her EKGs did not reveal any acute changes and again her cardiac enzymes are negative. Her chest pains appear to be noncardiac and may be related to anxiety. At this point, no further cardiac evaluation is suggested. In March of this year patient had an echocardiogram which showed an ejection fraction of 50 to 55%. From cardiac standpoint, patient could be discharged home. Follow-up with Dr. Jaramillo as an outpatient. Review of Systems As per the chart Past Medical History Past Medical History: Chest Pain / Angina, Heart Failure, COPD, Fibromyalgia, GERD/Reflux, Thyroid Disorder Additional Past Medical History / Comment(s): STATES IRREGULAR HEARTBEAT, HEADACHES, BRONCHITIS, SEE CARDIOLOGY H & P. peptic ulcers, anxiety, hyster, choley. History of Any Multi-Drug Resistant Organisms: None Reported Past Surgical History: Cholecystectomy, Hysterectomy Past Anesthesia/Blood Transfusion Reactions: No Reported Reaction Past Psychological History: Anxiety, Bipolar, Depression, Schizophrenia Smoking Status: Current some day smoker Past Alcohol Use History: None Reported Additional Past Alcohol Use History / Comment(s): SMOKES 1/2-3/4 PPD. STARTED SMOKING AGE 16 (1985) Past Drug Use History: Marijuana Additional Drug Use History / Comment(s): INSTRUCTED NOT TO USE 24 HRS PRIOR TO PROCEDURE - Past Family History Mother Family Medical History: No Reported History Medications and Allergies Home Medications Medication Instructions Recorded Confirmed Type Cyclobenzaprine [Flexeril] 10 mg PO TID PRN 11/22/16 05/21/19 History Docusate [Colace] 100 mg PO BID PRN 11/22/16 05/21/19 History Furosemide [Lasix] 20 mg PO BID 11/22/16 05/21/19 History Levothyroxine Sodium [Synthroid] 100 mcg PO DAILY 11/22/16 05/21/19 History Pravastatin Sodium [Pravachol] 80 mg PO HS 11/22/16 05/21/19 History Topiramate [Topamax] 50 mg PO BID 11/22/16 05/21/19 History HYDROcodone/APAP 7.5-325MG [[place] 1 tab PO TID 10/26/17 05/21/19 History 7.5-325] Vortioxetine Hydrobromide 10 mg PO HS 02/20/19 05/21/19 History [Trintellix] Loratadine [Claritin] 10 mg PO DAILY 04/09/19 05/21/19 History Metoprolol Succinate [Toprol XL] 50 mg PO DAILY 04/09/19 05/21/19 History Spironolactone 12.5 mg PO DAILY 04/09/19 05/21/19 History Acetaminophen/Diphenhydramine 1 tab PO HS PRN 04/23/19 05/21/19 History [Tylenol PM 500-25mg] Nicotine 21Mg/24Hr Patch [Habitrol 1 patch TRANSDERM DAILY 04/23/19 05/21/19 History 21Mg/24Hr Patch] ALPRAZolam [Xanax] 0.5 mg PO TID PRN 05/21/19 05/21/19 History Ergocalciferol (Vitamin D2) 50,000 unit PO TU 05/21/19 05/21/19 History [Vitamin D2] Allergies Allergy/AdvReac Type Severity Reaction Status Date / Time codeine Allergy Itching Verified 05/21/19 13:05 [From Tylenol-Codeine #3] Penicillins Allergy Rash/Hives Verified 05/21/19 13:05 Physical Exam Vitals: Vital Signs Temp Pulse Pulse Resp BP BP BP 05/22/19 07:00 97.8 F 65 18 110/69 05/22/19 05:20 74 18 94/61 05/22/19 03:27 97.6 F 63 16 88/57 05/21/19 23:11 97.5 F L 73 16 94/58 05/21/19 19:21 98.1 F 77 16 103/66 05/21/19 17:27 76 18 05/21/19 16:40 98.2 F 76 18 95/63 05/21/19 15:45 85 18 94/72 05/21/19 13:19 99/63 05/21/19 12:54 98.1 F 106 H 18 107/72 Pulse Ox 05/22/19 07:00 99 05/22/19 05:20 99 05/22/19 03:27 100 05/21/19 23:11 99 05/21/19 19:21 99 05/21/19 17:27 05/21/19 16:40 100 05/21/19 15:45 98 05/21/19 13:19 05/21/19 12:54 99 Intake and Output 05/21/19 05/22/19 05/22/19 22:59 06:59 14:59 Intake Total 222 Balance 222 Intake: Oral 222 Other: Voiding Method Toilet Toilet # Voids 1 GENERAL EXAM: Patient is alert and oriented and doesn't appear to be in any acute distress HEENT: Normocephalic. Normal reaction of pupils, equal size, normal range of extraocular motion. No erythema or exudates in the throat. NECK: No masses, no nuchal rigidity. CHEST: No chest wall deformity. LUNGS: Equal air entry with no crackles or wheeze. HEART: S1 and S2 normal with no audible mumurs or gallops. Regular rhythm, femorals equal on both sides.. ABDOMEN: No hepatosplenomegaly, normal bowel sounds, no guarding or rigidity. SKIN: No rashes CENTRAL NERVOUS SYSTEM: No focal deficits. EXTREMITIES: No cyanosis, clubbing or edema. Results 05/21/19 13:15 05/21/19 13:15 Cardiac Enzymes 05/21/19 05/21/19 05/21/19 Range/Units 13:15 13:15 19:21 AST 24 (14-36) U/L Troponin I <0.012 <0.012 (0.000-0.034) ng/mL 05/22/19 Range/Units 00:37 AST (14-36) U/L Troponin I <0.012 (0.000-0.034) ng/mL Coagulation 05/21/19 Range/Units 13:15 PT 9.8 (9.0-12.0) sec APTT 25.8 (22.0-30.0) sec Lipids 05/21/19 Range/Units 13:15 Triglycerides 86 (<150) mg/dL Cholesterol 126 (<200) mg/dL HDL Cholesterol 44 (40-60) mg/dL CBC 05/21/19 Range/Units 13:15 WBC 7.9 (3.8-10.6) k/uL RBC 4.21 (3.80-5.40) m/uL Hgb 11.7 (11.4-16.0) gm/dL Hct 37.0 (34.0-46.0) % Plt Count 378 (150-450) k/uL Comprehensive Metabolic Panel 05/21/19 Range/Units 13:15 Sodium 141 (137-145) mmol/L Potassium 4.6 (3.5-5.1) mmol/L Chloride 107 (98-107) mmol/L Carbon Dioxide 25 (22-30) mmol/L BUN 9 (7-17) mg/dL Creatinine 0.78 (0.52-1.04) mg/dL Glucose 102 H (74-99) mg/dL Calcium 9.6 (8.4-10.2) mg/dL AST 24 (14-36) U/L ALT 25 (9-52) U/L Alkaline Phosphatase 89 (38-126) U/L Total Protein 6.7 (6.3-8.2) g/dL Albumin 3.8 (3.5-5.0) g/dL Current Medications Generic Name Dose Route Start Last Admin Trade Name Freq PRN Reason Stop Dose Admin Acetaminophen 500 mg 05/21/19 17:56 Tylenol Tab PO HS PRN Pain Acetaminophen 500 mg 05/21/19 18:16 05/21/19 18:33 Tylenol Tab PO 500 mg ONCE PRN Administration Fever and/ or Pain Alprazolam 0.5 mg 05/21/19 17:56 05/21/19 18:11 Xanax PO 0.5 mg TID PRN Administration Anxiety Aspirin 325 mg 05/22/19 09:00 Aspirin PO DAILY TR Diphenhydramine HCl 25 mg 05/21/19 18:02 Benadryl PO HS PRN SLEEP (PAIN) Docusate Sodium 100 mg 05/21/19 17:56 Colace PO BID PRN Constipation Furosemide 20 mg 05/21/19 19:00 05/21/19 18:10 Lasix PO Not Given BID@0900,1600 [facility] Levothyroxine Sodium 100 mcg 05/22/19 06:30 05/22/19 05:34 Synthroid PO 100 mcg DAILY@0630 TR Administration Loratadine 10 mg 05/22/19 09:00 Claritin PO DAILY TR Metoprolol Succinate 50 mg 05/22/19 09:00 Toprol Xl PO DAILY TR Nicotine 1 patch 05/22/19 09:00 Habitrol 21mg/24hr Patch TRANSDERM DAILY TR Nitroglycerin 1 inch 05/21/19 18:00 05/22/19 05:03 Nitro-Bid Oint TOPICAL Not Given Q6HR TR Nitroglycerin 0.4 mg 05/21/19 15:28 Nitrostat SUBLINGUAL Q5M PRN Chest Pain Spironolactone 12.5 mg 05/22/19 09:00 Aldactone PO DAILY TR Topiramate 50 mg 05/21/19 21:00 05/21/19 20:49 Topamax PO 50 mg BID TR Administration Vortioxetine 10 mg 05/21/19 21:00 05/21/19 20:52 Trintellix PO Not Given HS TR Intake and Output 05/21/19 05/22/19 05/22/19 22:59 06:59 14:59 Intake Total 222 Balance 222 Intake: Oral 222 Other: Voiding Method Toilet Toilet # Voids 1 05/21/19 13:15 05/21/19 13:15 EKG Interpretations (text) Sinus rhythm Assessment and Plan (1) Atypical chest pain Current Visit: Yes Status: Acute Code(s): R07.89 - OTHER CHEST PAIN SNOMED Code(s): 656102076 (2) Smoking Current Visit: Yes Status: Acute Code(s): F17.200 - NICOTINE DEPENDENCE, UNSPECIFIED, UNCOMPLICATED SNOMED Code(s): 34665779 (3) History of psychiatric disorder Current Visit: Yes Status: Acute Code(s): Z86.59 - PERSONAL HISTORY OF OTHER MENTAL AND BEHAVIORAL DISORDERS SNOMED Code(s): 918697039 Plan: So far EKGs and cardiac enzymes are negative. Chest pain is atypical. Had a cardiac catheterization last year which showed normal coronary arteries. Echocardiogram was done in March. No further cardiac workup at this time
[2019-05-22] MEDS ORDERED: NICOTINE 21MG/24HR PATCH TRANSDERM SCH (09:00)
[2019-05-22] MEDS ORDERED: LORATADINE 10 MG TAB PO SCH (09:00)
[2019-05-22] MEDS ORDERED: ASPIRIN 325 MG TAB PO SCH (09:00)
[2019-05-22] MEDS ORDERED: METOPROLOL SUCCINATE (ER) 50 MG TAB.ER.24H PO SCH (09:00)
[2019-05-22] MEDS ORDERED: SPIRONOLACTONE 25 MG TAB PO SCH (09:00)
[2019-05-22] MEDS: FUROSEMIDE 20 MG TAB PO SCH (09:55)
[2019-05-22] MEDS: TOPIRAMATE 25 MG TAB PO SCH (09:55)
[2019-05-22] MEDS: ACETAMINOPHEN TAB 500 MG TAB PO PRN (11:09)
[2019-05-22] MEDS: ALPRAZolam 0.5 MG TAB PO PRN (11:10)
[2019-05-22 11:16] VITALS: BP 118/63; PULSE 90; TEMP 98.1
[2019-05-22 12:13] LABS: Urine Alcohol Negative (Negative); Urine Barbiturate Negative (Negative); Urine Cocaine Negative (Negative); Urine Methadone Negative (Negative); Urine Opiates Negative (Negative); Urine Phencyclidine Negative (Negative)
--- NOTE | 2019-05-22 17:59 | HP ---
HISTORY AND PHYSICAL CHIEF COMPLAINT: Chest pain. HISTORY OF PRESENT ILLNESS: This is another of many admissions for this 48-year-old white female with numerous medical and psychosocial problems. She presented to the emergency room with chest pain. The evaluation in the emergency room was negative. She described the pain on the left and radiating into the back. She states she also had shortness of breath and diaphoresis. She had been in the hospital numerous times for chest pain. She also has major problems with anxiety and COPD. She is always complaining of nausea and diarrhea as well. She is admitted as an observation to do serial EKGs and enzymes and have her re-evaluated by cardiology, who knows her well. REVIEW OF SYSTEMS: She has had no seizures, CVAs, change in vision or the hearing, cough, hemoptysis, rheumatic fever, murmurs, orthopnea, PND, syncope, infarctions, etc. She has had no significant abdominal pain, hematemesis, melena, hematochezia, jaundice, cirrhosis, renal failure, dysuria, hematuria, etc. Past medical history, family history, personal and social history reveal that she is ALLERGIC TO PENICILLIN and CODEINE. MEDICATIONS: She takes: Vitamin D3, Xanax 0.5 t.i.d. p.r.n., Flexeril p.r.n., [place] 7.5 q.6h p.r.n., pravastatin 80 mg once a day. She does continue to smoke. She does not drink at present time and is a recovering alcoholic. PHYSICAL EXAMINATION: Blood pressure 122/78 with pulse of 80, regular. Respirations 16. She is afebrile. In general, she appeared to be slightly pale, asthenic and essentially unhealthy and older than her stated age. Head, ears, eyes, nose, mouth, and throat were normal. Lymph nodes not enlarged. Neck veins not distended. Carotids are normal. Chest is clear to auscultation and percussion with decreased breath sounds due to her emphysema. Cardiac exam demonstrated normal sinus rhythm and no murmurs or extra sounds. The abdomen is flat, soft, nontender without visceromegaly or masses. Chest wall is nontender. Extremities are normal. Neurologically, she is intact. IMPRESSION: 1. Left anterior chest pain. 2. Chronic obstructive pulmonary disease. 3. Anxiety neurosis. 4. Depression. PLAN: 1. Bed rest. 2. IV fluids. 3. Serial EKGs and enzymes. 4. Cardiology consult. YANICK / WINSTON: [id number] /
--- NOTE | 2019-05-22 19:23 | DS ---
DISCHARGE SUMMARY CHIEF COMPLAINT: Chest pain. HISTORY OF PRESENT ILLNESS AND PHYSICAL EXAM: Details of this lady's history and physical can be found in the initial workup. LABORATORY STUDIES: While she was in the hospital, she had laboratory studies, details of which can be found in the laboratory section of her chart. COURSE IN HOSPITAL: After admission, she was placed on bedrest, started on intravenous fluids and had serial EKGs and enzymes. She was seen by Cardiology and was felt she could be released. She will go home on usual diet, activity and her usual medications and follow up in a day or 2. FINAL DIAGNOSES: 1. Chest pain, noncardiac. 2. Chronic obstructive pulmonary disease. 3. History of alcoholism. 4. Depression. OPERATIONS: None. CONSULTATION: Cardiology. She is improved. YANICK / WINSTON: [id number] /
== END 2019-05-22 13:30 | disposition home or self-care (01) ==
LOC: EC 12:52 → 1SOBS 15:28
PROVIDERS: ADMIT Family Medicine; ATTEND Family Medicine
DX: R07.89 Other chest pain (principal); J44.9 Chronic obstructive pulmonary disease, unspecified; M79.7 Fibromyalgia; K21.9 Gastro-esophageal reflux disease without esophagitis; E07.9 Disorder of thyroid, unspecified; I50.9 Heart failure, unspecified; F41.1 Generalized anxiety disorder; I49.9 Cardiac arrhythmia, unspecified; F31.9 Bipolar disorder, unspecified; F20.9 Schizophrenia, unspecified; E78.00 Pure hypercholesterolemia, unspecified; R61 Generalized hyperhidrosis; F17.210 Nicotine dependence, cigarettes, uncomplicated; F10.20 Alcohol dependence, uncomplicated; Z79.891 Long term (current) use of opiate analgesic; Z79.890 Hormone replacement therapy; Z79.899 Other long term (current) drug therapy; Z88.0 Allergy status to penicillin; Z88.5 Allergy status to narcotic agent; Z87.11 Personal history of peptic ulcer disease; Z90.49 Acquired absence of other specified parts of digestive tract; Z90.710 Acquired absence of both cervix and uterus
CPT/HCPCS: 99285; 36415; 85379; 83880; 80061; 80053; 83735; 84484 ×2; 85025; 85610; 85730; 80306; 71046; G0378 ×2; S4990

== ENCOUNTER 2019-06-26 19:13 | Emergency (ER) | payer OTHER ==
[2019-06-26] MEDS ORDERED: MORPHINE SULFATE 4 MG/ML SYRINGE IV STA (19:32)
--- NOTE | 2019-06-26 19:45 | ED ---
General Adult HPI - General Stated complaint: Chest Pains Time Seen by Provider: 06/26/19 19:16 - History of Present Illness Initial comments: 49-year-old female patient with past medical history significant for PE, fibromyalgia, hypothyroid, and irregular heartbeat presents to the emergency department today for evaluation of left-sided chest pain. Patient states that the pain is extreme pressure type pain that does radiate through to her back. States that she is having shortness of breath and nausea with this. Patient states that started around 3 PM and has persisted constantly since. States that she did receive nitro, aspirin, and fentanyl in EMS and her pain decreased from a 10 down to 8. States that she has chronic abdominal pain and this has not changed. Denies any fever or chills. States she has had a cough with yellow sputum production. Patient denies any recent rash, diarrhea, constipation, back pain, numbness, tingling, dizziness, weakness, hematuria, dysuria, urinary urgency, urinary frequency, headache, visual changes, or any other complaints. - Related Data Home Medications Medication Instructions Recorded Confirmed Cyclobenzaprine [Flexeril] 10 mg PO TID PRN 11/22/16 05/21/19 Docusate [Colace] 100 mg PO BID PRN 11/22/16 05/21/19 Furosemide [Lasix] 20 mg PO BID 11/22/16 05/21/19 Levothyroxine Sodium [Synthroid] 100 mcg PO DAILY 11/22/16 05/21/19 Pravastatin Sodium [Pravachol] 80 mg PO HS 11/22/16 05/21/19 Topiramate [Topamax] 50 mg PO BID 11/22/16 05/21/19 HYDROcodone/APAP 7.5-325MG [[place] 1 tab PO TID 10/26/17 05/21/19 7.5-325] Vortioxetine Hydrobromide 10 mg PO HS 02/20/19 05/21/19 [Trintellix] Loratadine [Claritin] 10 mg PO DAILY 04/09/19 05/21/19 Metoprolol Succinate [Toprol XL] 50 mg PO DAILY 04/09/19 05/21/19 Spironolactone 12.5 mg PO DAILY 04/09/19 05/21/19 Acetaminophen/Diphenhydramine 1 tab PO HS PRN 04/23/19 05/21/19 [Tylenol PM 500-25mg] Nicotine 21Mg/24Hr Patch [Habitrol] 1 patch TRANSDERM DAILY 04/23/19 05/21/19 ALPRAZolam [Xanax] 0.5 mg PO TID PRN 05/21/19 05/21/19 Ergocalciferol (Vitamin D2) 50,000 unit PO TU 05/21/19 05/21/19 [Vitamin D2] Allergies Allergy/AdvReac Type Severity Reaction Status Date / Time codeine Allergy Itching Verified 05/21/19 13:05 [From Tylenol-Codeine #3] Penicillins Allergy Rash/Hives Verified 05/21/19 13:05 Review of Systems ROS Statement: Those systems with pertinent positive or pertinent negative responses have been documented in the HPI. ROS Other: All systems not noted in ROS Statement are negative. Past Medical History Past Medical History: Chest Pain / Angina, Heart Failure, COPD, Fibromyalgia, GERD/Reflux, Thyroid Disorder Additional Past Medical History / Comment(s): STATES IRREGULAR HEARTBEAT, HEADACHES, BRONCHITIS, SEE CARDIOLOGY H & P. peptic ulcers, anxiety, hyster, choley. History of Any Multi-Drug Resistant Organisms: None Reported Past Surgical History: Cholecystectomy, Hysterectomy Past Anesthesia/Blood Transfusion Reactions: No Reported Reaction Past Psychological History: Anxiety, Bipolar, Depression, Schizophrenia Smoking Status: Current some day smoker Past Alcohol Use History: None Reported Additional Past Alcohol Use History / Comment(s): SMOKES 1/2-3/4 PPD. STARTED SMOKING AGE 16 (1984) Past Drug Use History: Marijuana Additional Drug Use History / Comment(s): INSTRUCTED NOT TO USE 24 HRS PRIOR TO PROCEDURE - Past Family History Mother Family Medical History: No Reported History General Exam General appearance: alert, in no apparent distress, other (Physical well- developed, thin appearing adult female patient in no acute distress.) Eye exam: Present: normal appearance, PERRL, EOMI. Absent: scleral icterus, conjunctival injection, periorbital swelling ENT exam: Present: normal exam, normal oropharynx, mucous membranes moist Respiratory exam: Present: normal lung sounds bilaterally. Absent: respiratory distress, wheezes, rales, rhonchi, stridor Cardiovascular Exam: Present: regular rate, normal rhythm, normal heart sounds. Absent: systolic murmur, diastolic murmur, rubs, gallop, clicks GI/Abdominal exam: Present: soft, normal bowel sounds. Absent: distended, tenderness, guarding, rebound, rigid Neurological exam: Present: alert, oriented X3, CN II-XII intact Psychiatric exam: Present: normal affect, normal mood Skin exam: Present: warm, dry, intact, normal color. Absent: rash Course Vital Signs 06/26/19 06/26/19 06/26/19 19:32 20:08 21:08 Temperature 97.9 F Pulse Rate 65 92 Respiratory 18 17 Rate Blood Pressure 118/83 102/69 O2 Sat by Pulse 100 100 100 Oximetry 06/26/19 06/26/19 22:08 22:55 Temperature 97.9 F Pulse Rate 94 Respiratory 18 Rate Blood Pressure 114/73 O2 Sat by Pulse 100 Oximetry EKG Findings - EKG Comments: EKG Findings:: EKG obtained at 2037 shows normal sinus rhythm with sinus arrhythmia. Ventricular rate is 71, PA interval 140, QRS duration 82, QT 434, QTC 471. No evidence of ST elevation or depression. Medical Decision Making - Medical Decision Making 41-year-old female patient presents to the emergency department today for evaluation of chest pain and shortness of breath. Physical examination is unremarkable. Lungs are clear to auscultation with good air movement. No reproducible pain with palpation. Labs reviewed and were unremarkable. Tropo go and d-dimer negative. Chest x-ray showed no acute cardiopulmonary process. EKG showed normal sinus rhythm. Patient has had similar type pain in the past. She was recently evaluated here in May for chest pain was discharged by cardiology. She did have heart catheterization 1 year ago which showed no evidence for significant cardiac occlusion. I did discuss findings and results with the patient. She'll be discharged home at this time to follow-up with her primary care physician for recheck in 1-2 days. She is instructed to follow-up with her nutritional chemist. Return parameters were discussed in detail. She verbalizes understanding and agrees this plan. - Lab Data Result diagrams: 06/26/19 20:25 06/26/19 20:25 Lab Results 06/26/19 06/26/19 06/26/19 Range/Units 20:25 20:25 20:25 WBC 9.9 (3.8-10.6) k/uL RBC 4.35 (3.80-5.40) m/uL Hgb 13.1 (11.4-16.0) gm/dL Hct 40.7 (34.0-46.0) % MCV 93.4 D (80.0-100.0) fL MCH 30.1 (25.0-35.0) pg MCHC 32.2 (31.0-37.0) g/dL RDW 17.1 H (11.5-15.5) % Plt Count 373 (150-450) k/uL Neutrophils % (Manual) 33 % Lymphocytes % (Manual) 64 % Monocytes % (Manual) 2 % Eosinophils % (Manual) 1 % Neutrophils # (Manual) 3.27 (1.3-7.7) k/uL Lymphocytes # (Manual) 6.34 H (1.0-4.8) k/uL Monocytes # (Manual) 0.20 (0-1.0) k/uL Eosinophils # (Manual) 0.10 (0-0.7) k/uL Nucleated RBCs 0 (0-0) /100 WBC Manual Slide Review Performed Polychromasia Present Poikilocytosis (manual Present Anisocytosis Slight PT 10.5 (9.0-12.0) sec INR 1.0 (<1.2) APTT 25.8 (22.0-30.0) sec D-Dimer 0.19 (<0.60) mg/L FEU Sodium 141 (137-145) mmol/L Potassium 3.5 (3.5-5.1) mmol/L Chloride 111 H (98-107) mmol/L Carbon Dioxide 21 L (22-30) mmol/L Anion Gap 9 mmol/L BUN 11 (7-17) mg/dL Creatinine 0.79 (0.52-1.04) mg/dL Est GFR (CKD-EPI)AfAm >90 (>60 ml/min/1.73 sqM) Est GFR (CKD-EPI)NonAf 90 (>60 ml/min/1.73 sqM) Glucose 83 (74-99) mg/dL Calcium 10.3 H (8.4-10.2) mg/dL Magnesium 2.2 (1.6-2.3) mg/dL Total Bilirubin 0.2 (0.2-1.3) mg/dL AST 18 (14-36) U/L ALT 13 (9-52) U/L Alkaline Phosphatase 91 (38-126) U/L Troponin I (0.000-0.034) ng/mL Total Protein 7.0 (6.3-8.2) g/dL Albumin 4.0 (3.5-5.0) g/dL 06/26/19 Range/Units 20:25 WBC (3.8-10.6) k/uL RBC (3.80-5.40) m/uL Hgb (11.4-16.0) gm/dL Hct (34.0-46.0) % MCV (80.0-100.0) fL MCH (25.0-35.0) pg MCHC (31.0-37.0) g/dL RDW (11.5-15.5) % Plt Count (150-450) k/uL Neutrophils % (Manual) % Lymphocytes % (Manual) % Monocytes % (Manual) % Eosinophils % (Manual) % Neutrophils # (Manual) (1.3-7.7) k/uL Lymphocytes # (Manual) (1.0-4.8) k/uL Monocytes # (Manual) (0-1.0) k/uL Eosinophils # (Manual) (0-0.7) k/uL Nucleated RBCs (0-0) /100 WBC Manual Slide Review Polychromasia Poikilocytosis (manual Anisocytosis PT (9.0-12.0) sec INR (<1.2) APTT (22.0-30.0) sec D-Dimer (<0.60) mg/L FEU Sodium (137-145) mmol/L Potassium (3.5-5.1) mmol/L Chloride (98-107) mmol/L Carbon Dioxide (22-30) mmol/L Anion Gap mmol/L BUN (7-17) mg/dL Creatinine (0.52-1.04) mg/dL Est GFR (CKD-EPI)AfAm (>60 ml/min/1.73 sqM) Est GFR (CKD-EPI)NonAf (>60 ml/min/1.73 sqM) Glucose (74-99) mg/dL Calcium (8.4-10.2) mg/dL Magnesium (1.6-2.3) mg/dL Total Bilirubin (0.2-1.3) mg/dL AST (14-36) U/L ALT (9-52) U/L Alkaline Phosphatase (38-126) U/L Troponin I <0.012 (0.000-0.034) ng/mL Total Protein (6.3-8.2) g/dL Albumin (3.5-5.0) g/dL - Radiology Data Radiology results: report reviewed, image reviewed Two-view x-ray of the chest is obtained. Report was reviewed in its entirety. Impression by Dr. Desir shows no active cardiopulmonary disease. Normal heart. No change. Disposition Clinical Impression: Chest pain Disposition: HOME SELF-CARE Condition: Good Instructions (If sedation given, give patient instructions): Chest Pain (ED) Additional Instructions: Follow-up with your primary care physician, nutritional chemist, and [facility] oncologist for recheck as soon as possible. Return to the emergency department for any new, worsening, or concerning symptoms. Is patient prescribed a controlled substance at d/c from ED?: No Referrals: Jonathon Gould MD [Primary Care Provider] - 1-2 days Time of Disposition: 22:15
[2019-06-26 20:08] VITALS: RESP 18; TEMP 97.9
[2019-06-26] MEDS ORDERED: CALCIUM CARBONATE 500 MG CHEWABLE PO STA (20:43)
[2019-06-26 20:46] LABS: Anisocytosis Slight; HCT 40.7 % (34.0-46.0); HGB 13.1 gm/dL (11.4-16.0); MCH 30.1 pg (25.0-35.0); MCHC 32.2 g/dL (31.0-37.0); Mean Platelet Volume 7.1; Platelet Count 373 k/uL (150-450); RBC 4.35 m/uL (3.80-5.40); RDW 17.1 % (11.5-15.5); WBC 9.9 k/uL (3.8-10.6)
[2019-06-26 20:56] LABS: ALT 13 U/L (9-52); AST 18 U/L (14-36); African American GFR (CKD) >90 (>60 ml/min/1.73 sqM); Alkaline Phosphatase 91 U/L (38-126); Anion Gap 9 mmol/L; Blood Urea Nitrogen 11 mg/dL (7-17); Calcium 10.3 mg/dL (8.4-10.2); Carbon Dioxide 21 mmol/L (22-30); Chloride 111 mmol/L (98-107); Glucose 83 mg/dL (74-99); MCV 93.4 fL (80.0-100.0); Magnesium 2.2 mg/dL (1.6-2.3); Potassium 3.5 mmol/L (3.5-5.1); Sodium 141 mmol/L (137-145); Total Bilirubin 0.2 mg/dL (0.2-1.3)
[2019-06-26 21:00] LABS: D-Dimer 0.19 mg/L FEU (<0.60); Partial Thromboplastin Time 25.8 sec (22.0-30.0); Prothrombin Time 10.5 sec (9.0-12.0)
--- NOTE | 2019-06-26 21:02 | XR ---
EXAMINATION TYPE: XR chest 2V DATE OF EXAM: 06/26/2019 COMPARISON: 05/21/2019 HISTORY: Chest pain TECHNIQUE: Frontal and lateral views of the chest are obtained. FINDINGS: Heart and mediastinum are normal. Lungs are clear of infiltrate. There is no pleural effus ion. There are chest leads. Bony thorax is intact. IMPRESSION: No active cardiopulmonary disease. Normal heart. No change.
[2019-06-26 21:11] LABS: Lymphocytes # (M) 6.34 k/uL (1.0-4.8); Neutrophils % (M) 33 %; Nucleated Red Blood Cells 0 /100 WBC (0-0); Poikilocytosis (M) Present; Polychromasia Present; Total Cells Counted 100
[2019-06-26 22:35] VITALS: BP 114/73; PULSE 94
== END 2019-06-26 22:42 | disposition home or self-care (01) ==
LOC: EC 19:13
DX: R07.89 Other chest pain (principal); R06.02 Shortness of breath; R11.0 Nausea; R05 Cough; G89.29 Other chronic pain; R10.9 Unspecified abdominal pain; I50.9 Heart failure, unspecified; M79.7 Fibromyalgia; E03.9 Hypothyroidism, unspecified; F41.9 Anxiety disorder, unspecified; F32.9 Major depressive disorder, single episode, unspecified; F20.9 Schizophrenia, unspecified; F17.210 Nicotine dependence, cigarettes, uncomplicated; Z86.711 Personal history of pulmonary embolism; Z87.09 Personal history of other diseases of the respiratory system; Z95.818 Presence of other cardiac implants and grafts; Z79.890 Hormone replacement therapy; Z79.891 Long term (current) use of opiate analgesic; Z79.899 Other long term (current) drug therapy; Z88.5 Allergy status to narcotic agent; Z88.0 Allergy status to penicillin
CPT/HCPCS: 36415; 93005; 85379; 80053; 83735; 84484; 85025; 85610; 85730; 71046; 99285; 96374; J2270

== ENCOUNTER 2019-08-24 14:39 | Observation (INO) | payer OTHER ==
[2019-08-24] MEDS ORDERED: SODIUM CHLORIDE 0.9% 1,000 ML IV STA (15:07)
[2019-08-24] MEDS ORDERED: ONDANSETRON 4 MG/2 ML VIAL IVP STA (15:07)
[2019-08-24] MEDS ORDERED: HYDROcodone/APAP 5-325MG 1 EACH TAB PO STA (15:08)
[2019-08-24] MEDS ORDERED: KETOROLAC 30 MG/ML 1 ML VIAL IVP STA (15:08)
--- NOTE | 2019-08-24 15:09 | ED ---
Back Pain HPI - General Chief Complaint: Back Pain/Injury Stated Complaint: Chest pain Time Seen by Provider: 08/24/19 14:50 Source: patient, RN notes reviewed, old records reviewed Limitations: no limitations - History of Present Illness Initial Comments: Patient is a 49-year-old female with multiple complaints, she states that she was having chest pain and back pain, she's been having symptoms since Monday. She states that she was seen by her primary care doctor. She states that as of she's been out of her chronic pain medicine as she did not have enough Andrews in her urine sample and her pain management doctor discharged her. Patient reports that she has been complaining of abdominal cramping and general discomfort. Her main concern today is for chronic back pain, and acute chest pain. Patient states that she went to her primary care doctor's this week and she had a low prep blood pressure at that time and not concerns her as well. Patient states that she is a smoker. - Related Data Home Medications Medication Instructions Recorded Confirmed Docusate [Colace] 100 mg PO BID PRN 11/22/16 08/24/19 Furosemide [Lasix] 20 mg PO BID 11/22/16 08/24/19 Levothyroxine Sodium [Synthroid] 100 mcg PO DAILY 11/22/16 08/24/19 Pravastatin Sodium [Pravachol] 80 mg PO HS 11/22/16 08/24/19 Topiramate [Topamax] 50 mg PO BID 11/22/16 08/24/19 Metoprolol Succinate [Toprol XL] 50 mg PO DAILY 04/09/19 08/24/19 Spironolactone 12.5 mg PO DAILY 04/09/19 08/24/19 ALPRAZolam [Xanax] 0.5 mg PO TID PRN 05/21/19 08/24/19 Ergocalciferol (Vitamin D2) 50,000 unit PO Q30D 05/21/19 08/24/19 [Vitamin D2] Acetaminophen Tab [Tylenol Tab] 500 mg PO BID 08/24/19 08/24/19 Baclofen [Lioresal] 10 mg PO Q6H PRN 08/24/19 08/24/19 HYDROcodone/APAP 10-325MG [[place] 1 tab PO TID 08/24/19 08/24/19 10-325] Isosorbide Mononitrate ER [Imdur] 30 mg PO DAILY 08/24/19 08/24/19 Nitroglycerin Sl Tabs [Nitrostat] 0.4 mg SUBLINGUAL Q5M PRN 08/24/19 08/24/19 Ondansetron [Zofran] 4 mg PO Q6H PRN 08/24/19 08/24/19 traZODone HCL 50 - 100 mg PO HS PRN 08/24/19 08/24/19 Allergies Allergy/AdvReac Type Severity Reaction Status Date / Time codeine Allergy Itching Verified 08/24/19 15:21 [From Tylenol-Codeine #3] Penicillins Allergy Rash/Hives Verified 08/24/19 15:21 Review of Systems ROS Statement: Those systems with pertinent positive or pertinent negative responses have been documented in the HPI. ROS Other: All systems not noted in ROS Statement are negative. Past Medical History Past Medical History: Chest Pain / Angina, Heart Failure, COPD, Fibromyalgia, GERD/Reflux, Thyroid Disorder Additional Past Medical History / Comment(s): STATES IRREGULAR HEARTBEAT, HEADACHES, BRONCHITIS, SEE CARDIOLOGY H & P. peptic ulcers, anxiety, hyster, choley. History of Any Multi-Drug Resistant Organisms: None Reported Past Surgical History: Cholecystectomy, Hysterectomy Past Anesthesia/Blood Transfusion Reactions: No Reported Reaction Past Psychological History: Anxiety, Bipolar, Depression, Schizophrenia Smoking Status: Current some day smoker Past Alcohol Use History: None Reported Past Drug Use History: Marijuana - Past Family History Mother Family Medical History: No Reported History General Exam - General Exam Comments Initial Comments: Since a 49-year-old female. Patient appears older than stated age. Limitations: no limitations General appearance: alert, in no apparent distress Head exam: Present: atraumatic, normocephalic, normal inspection Eye exam: Present: normal appearance, PERRL, EOMI. Absent: scleral icterus, con junctival injection, periorbital swelling ENT exam: Present: normal exam, normal oropharynx, mucous membranes moist, other (tongue ) Neck exam: Present: normal inspection Respiratory exam: Present: normal lung sounds bilaterally. Absent: respiratory distress, wheezes, rales, rhonchi, stridor Cardiovascular Exam: Present: regular rate, normal rhythm, normal heart sounds. Absent: systolic murmur, diastolic murmur, rubs, gallop, clicks GI/Abdominal exam: Present: soft, normal bowel sounds. Absent: distended, tenderness, guarding, rebound, rigid Extremities exam: Present: normal inspection, full ROM, normal capillary refill. Absent: tenderness, pedal edema, joint swelling, calf tenderness Back exam: Present: normal inspection Neurological exam: Present: alert, oriented X3, CN II-XII intact Psychiatric exam: Present: normal affect, normal mood Skin exam: Present: warm, dry, intact, normal color. Absent: rash Course Vital Signs 08/24/19 14:45 Temperature 97.8 F Pulse Rate 73 Respiratory 16 Rate Blood Pressure 131/79 O2 Sat by Pulse 98 Oximetry Medical Decision Making - Medical Decision Making 41-year-old female, she presents today for multiple complaints. Patient's main concern today is chest pain starting today, and chronic back pain worsens with laying asleep. At this time Patient also out of her narcotic pain medicine. She was only given one oral by mouth Andrews. Discussed no IV narcotic pain medicine is necessary at this time. Patient EKGs remained for any acute changes. Troponin is normal. On reevaluation she continues to complain of chest discomfort. Discussed case with Dr. Dexter. Recommend significant keep the Patient for observation. He'll discuss the case with Dr. Gould. Patient was given aspirin. - Lab Data Result diagrams: 08/24/19 15:45 08/24/19 15:45 Lab Results 08/24/19 08/24/19 08/24/19 Range/Units 15:45 15:45 15:45 WBC 8.1 (3.8-10.6) k/uL RBC 4.09 (3.80-5.40) m/uL Hgb 12.9 (11.4-16.0) gm/dL Hct 38.4 (34.0-46.0) % MCV 93.8 (80.0-100.0) fL MCH 31.5 (25.0-35.0) pg MCHC 33.6 (31.0-37.0) g/dL RDW 14.8 (11.5-15.5) % Plt Count 333 (150-450) k/uL Neutrophils % 49 % Lymphocytes % 40 % Monocytes % 6 % Eosinophils % 1 % Basophils % 1 % Neutrophils # 3.9 (1.3-7.7) k/uL Lymphocytes # 3.2 (1.0-4.8) k/uL Monocytes # 0.5 (0-1.0) k/uL Eosinophils # 0.0 (0-0.7) k/uL Basophils # 0.1 (0-0.2) k/uL PT (9.0-12.0) sec INR (<1.2) APTT (22.0-30.0) sec Sodium 141 (137-145) mmol/L Potassium 4.4 (3.5-5.1) mmol/L Chloride 110 H (98-107) mmol/L Carbon Dioxide 23 (22-30) mmol/L Anion Gap 8 mmol/L BUN 9 (7-17) mg/dL Creatinine 0.76 (0.52-1.04) mg/dL Est GFR (CKD-EPI)AfAm >90 (>60 ml/min/1.73 sqM) Est GFR (CKD-EPI)NonAf >90 (>60 ml/min/1.73 sqM) Glucose 86 (74-99) mg/dL Calcium 10.5 H (8.4-10.2) mg/dL Magnesium 2.0 (1.6-2.3) mg/dL Total Bilirubin 0.4 (0.2-1.3) mg/dL AST 25 (14-36) U/L ALT 23 (9-52) U/L Alkaline Phosphatase 75 (38-126) U/L Troponin I <0.012 (0.000-0.034) ng/mL Total Protein 6.8 (6.3-8.2) g/dL Albumin 4.0 (3.5-5.0) g/dL Amylase 43 (30-110) U/L 08/24/19 Range/Units 16:13 WBC (3.8-10.6) k/uL RBC (3.80-5.40) m/uL Hgb (11.4-16.0) gm/dL Hct (34.0-46.0) % MCV (80.0-100.0) fL MCH (25.0-35.0) pg MCHC (31.0-37.0) g/dL RDW (11.5-15.5) % Plt Count (150-450) k/uL Neutrophils % % Lymphocytes % % Monocytes % % Eosinophils % % Basophils % % Neutrophils # (1.3-7.7) k/uL Lymphocytes # (1.0-4.8) k/uL Monocytes # (0-1.0) k/uL Eosinophils # (0-0.7) k/uL Basophils # (0-0.2) k/uL PT 10.5 (9.0-12.0) sec INR 1.0 (<1.2) APTT 26.2 (22.0-30.0) sec Sodium (137-145) mmol/L Potassium (3.5-5.1) mmol/L Chloride (98-107) mmol/L Carbon Dioxide (22-30) mmol/L Anion Gap mmol/L BUN (7-17) mg/dL Creatinine (0.52-1.04) mg/dL Est GFR (CKD-EPI)AfAm (>60 ml/min/1.73 sqM) Est GFR (CKD-EPI)NonAf (>60 ml/min/1.73 sqM) Glucose (74-99) mg/dL Calcium (8.4-10.2) mg/dL Magnesium (1.6-2.3) mg/dL Total Bilirubin (0.2-1.3) mg/dL AST (14-36) U/L ALT (9-52) U/L Alkaline Phosphatase (38-126) U/L Troponin I (0.000-0.034) ng/mL Total Protein (6.3-8.2) g/dL Albumin (3.5-5.0) g/dL Amylase (30-110) U/L 08/24/19 15:09 EKG shows sinus rhythm, short UT interval, otherwise normal EKG. Ventricular rate of 67 bpm. Normal 102 ms. She zoroastrianism is 80 ms. QT QTc is 414/437 ms. - Radiology Data Radiology results: report reviewed Normal chest x-ray. Disposition Clinical Impression: Smoking, Chest pain, Chronic back pain Disposition: ADMITTED IP TO THIS [facility] Condition: Stable Instructions (If sedation given, give patient instructions): Acute Low Back Gunnar n (ED) Is patient prescribed a controlled substance at d/c from ED?: No Referrals: Jonathon Gould MD [Primary Care Provider] - 1-2 days Time of Disposition: 17:25
[2019-08-24 16:33] LABS: ALT 23 U/L (9-52); AST 25 U/L (14-36); African American GFR (CKD) >90 (>60 ml/min/1.73 sqM); Alkaline Phosphatase 75 U/L (38-126); Amylase 43 U/L (30-110); Anion Gap 8 mmol/L; Blood Urea Nitrogen 9 mg/dL (7-17); Calcium 10.5 mg/dL (8.4-10.2); Carbon Dioxide 23 mmol/L (22-30); Chloride 110 mmol/L (98-107); Glucose 86 mg/dL (74-99); Potassium 4.4 mmol/L (3.5-5.1); Sodium 141 mmol/L (137-145); Total Bilirubin 0.4 mg/dL (0.2-1.3); Total Protein 6.8 g/dL (6.3-8.2)
[2019-08-24 16:50] LABS: Partial Thromboplastin Time 26.2 sec (22.0-30.0); Prothrombin Time 10.5 sec (9.0-12.0)
--- NOTE | 2019-08-24 16:51 | XR ---
EXAMINATION TYPE: XR chest 2V DATE OF EXAM: 08/24/2019 COMPARISON: NONE HISTORY: Chest pain TECHNIQUE: Frontal and lateral views of the chest are obtained. FINDINGS: There is no focal air space opacity, pleural effusion, or pneumothorax seen. The cardiac silhouette size is within normal limits. The osseous structures are intact. IMPRESSION: No acute cardiopulmonary process.
[2019-08-24 16:52] LABS: Basophils # (A) 0.1 k/uL (0-0.2); Basophils % (A) 1 %; Eosinophils % (A) 1 %; HCT 38.4 % (34.0-46.0); HGB 12.9 gm/dL (11.4-16.0); Lymphocytes # (A) 3.2 k/uL (1.0-4.8); Lymphocytes % (A) 40 %; MCH 31.5 pg (25.0-35.0); MCHC 33.6 g/dL (31.0-37.0); MCV 93.8 fL (80.0-100.0); Mean Platelet Volume 6.3; Monocytes # (A) 0.5 k/uL (0-1.0); Monocytes % (A) 6 %; Neutrophils # (A) 3.9 k/uL (1.3-7.7); Neutrophils % (A) 49 %; Platelet Count 333 k/uL (150-450); RBC 4.09 m/uL (3.80-5.40); RDW 14.8 % (11.5-15.5); WBC 8.1 k/uL (3.8-10.6)
[2019-08-24] MEDS ORDERED: NITROGLYCERIN SL TABS 0.4 MG TAB SUBLINGUAL PRN ×2 (17:25→18:44)
[2019-08-24] MEDS ORDERED: ASPIRIN 81 MG PO STA (17:25)
[2019-08-24 17:52] LABS: Amorphous Sediment,Urine Moderate /hpf; Appearance,Urine Turbid (Clear); Bilirubin,Urine Negative (Negative); Blood,Urine Negative (Negative); Color,Urine Yellow; Glucose,Urine (UA) Negative (Negative); Ketones,Urine Negative (Negative); Leukocyte Esterase,Urine Negative (Negative); Mucus,Urine Occasional /hpf; Nitrite,Urine Negative (Negative); PH, Urine 7.5 (5.0-8.0); Protein,Urine Trace (Negative); Specific Gravity,Urine 1.017 (1.001-1.035); Squamous Epithelial Cell,Urine 2 /hpf (0-4); Urobilinogen,Urine <2.0 mg/dL (<2.0)
[2019-08-24 17:57] LABS: Amphetamine Screen,Urine Not Detected (NotDetected); Barbiturate Screen,Urine Not Detected (NotDetected); Benzodiazepines Screen,Urine Not Detected (NotDetected); Cocaine Screen,Urine Not Detected (NotDetected); Methadone Screen, Urine Not Detected (NotDetected); Opiate Screen,Urine Not Detected (NotDetected); Oxycodone Screen, Urine Not Detected (NotDetected); Phencyclidine Screen,Urine Not Detected (NotDetected); Tricyclic Antidepressant,Urine Not Detected (NotDetected); Urn Cannabinoid Scrn Detected (NotDetected)
[2019-08-24] MEDS ORDERED: DOCUSATE 100 MG CAP PO PRN (18:44)
[2019-08-24] MEDS ORDERED: traZODone HCL 50 MG TAB PO PRN (18:44)
[2019-08-24] MEDS ORDERED: ONDANSETRON 4 MG TAB PO PRN (18:44)
[2019-08-24] MEDS ORDERED: BACLOFEN 10 MG TAB PO PRN (18:44)
[2019-08-24] MEDS ORDERED: ALPRAZolam 0.5 MG TAB PO PRN (18:44)
[2019-08-24] MEDS: ACETAMINOPHEN TAB 325 MG TAB PO PRN (20:41)
[2019-08-24] MEDS: TOPIRAMATE 25 MG TAB PO SCH (20:41)
[2019-08-24] MEDS: FUROSEMIDE 20 MG TAB PO SCH (20:41)
[2019-08-24] MEDS ORDERED: PRAVASTATIN SODIUM 80 MG TAB PO SCH (21:00)
[2019-08-25] MEDS: ACETAMINOPHEN TAB 325 MG TAB PO PRN (06:21)
[2019-08-25] MEDS ORDERED: LEVOTHYROXINE 100 MCG TAB PO SCH (06:30)
[2019-08-25 06:34] LABS: Cholesterol 110 mg/dL (<200); HDL Cholesterol 40 mg/dL (40-60); LDL Cholesterol,Calculated 56 mg/dL (0-99); Triglycerides 70 mg/dL (<150)
[2019-08-25 08:46] VITALS: BP 97/62; PULSE 60; RESP 18; TEMP 97.8
[2019-08-25] MEDS: TOPIRAMATE 25 MG TAB PO SCH (08:47)
[2019-08-25] MEDS: FUROSEMIDE 20 MG TAB PO SCH (08:47)
[2019-08-25] MEDS ORDERED: CALCIUM CARBONATE 500 MG CHEWABLE PO PRN (08:48)
[2019-08-25] MEDS ORDERED: ISOSORBIDE MONONITRATE ER 30 MG TAB.ER.24H PO SCH (09:00)
[2019-08-25] MEDS ORDERED: METOPROLOL SUCCINATE (ER) 50 MG TAB.ER.24H PO SCH (09:00)
[2019-08-25] MEDS ORDERED: ASPIRIN 325 MG TAB PO SCH (09:00)
[2019-08-25] MEDS ORDERED: PANTOPRAZOLE 40 MG/10 ML VIAL IVP SCH (09:00)
[2019-08-25] MEDS ORDERED: SPIRONOLACTONE 25 MG TAB PO SCH (09:00)
--- NOTE | 2019-08-25 10:15 | P.CRDCN ---
History of Present Illness Consult date: 08/25/19 Chief complaint: Chest pain History of present illness: This is another admission for this 49-year-old female patient who does have a past medical history significant for multiple hospital admissions with a chest discomfort as well as multiple psychiatric disorder. She presented to the emergency room complaining of chest discomfort. She described the discomfort as a sharp, in the mid of the chest, without any radiation, and without any ass ociated symptoms. She describes pain all over her body. She is under a lot of stress at home. She has been having some issues with her son as well as with his girlfriend. Apparently she was in alf and she was released recently. She was crying when I saw the patient earlier today. She keeps requesting pain medications. The cardiac workup is unremarkable. The EKG showed sinus rhythm without any significant ST or T-wave abnormalities. The cardiac enzymes came in to be unremarkable. The chest x-ray showed no acute abnormalities. Please note that the patient underwent a heart catheterization about a year and a half ago and that revealed normal coronaries. The echo from earlier this year showed normal LV function with mild valvular abnormalities. From a cardiovascular standpoint of view, the patient can be discharged home. Past Medical History Past Medical History: Chest Pain / Angina, Heart Failure, COPD, Fibromyalgia, GERD/Reflux, Thyroid Disorder Additional Past Medical History / Comment(s): STATES IRREGULAR HEARTBEAT, HEADACHES, BRONCHITIS, SEE CARDIOLOGY H & P. peptic ulcers, anxiety, hyster, choley. History of Any Multi-Drug Resistant Organisms: None Reported Past Surgical History: Cholecystectomy, Hysterectomy Past Anesthesia/Blood Transfusion Reactions: No Reported Reaction Past Psychological History: Anxiety, Bipolar, Depression, Schizophrenia Smoking Status: Current every day smoker Past Alcohol Use History: None Reported Additional Past Alcohol Use History / Comment(s): SMOKES 1/2-3/4 PPD. STARTED SMOKING AGE 16 (1985) Past Drug Use History: Marijuana Additional Drug Use History / Comment(s): INSTRUCTED NOT TO USE 24 HRS PRIOR TO PROCEDURE - Past Family History Mother Family Medical History: No Reported History Medications and Allergies Home Medications Medication Instructions Recorded Confirmed Type Docusate [Colace] 100 mg PO BID PRN 11/22/16 08/24/19 History Furosemide [Lasix] 20 mg PO BID 11/22/16 08/24/19 History Levothyroxine Sodium [Synthroid] 100 mcg PO DAILY 11/22/16 08/24/19 History Pravastatin Sodium [Pravachol] 80 mg PO HS 11/22/16 08/24/19 History Topiramate [Topamax] 50 mg PO BID 11/22/16 08/24/19 History Metoprolol Succinate [Toprol XL] 50 mg PO DAILY 04/09/19 08/24/19 History Spironolactone 12.5 mg PO DAILY 04/09/19 08/24/19 History ALPRAZolam [Xanax] 0.5 mg PO TID PRN 05/21/19 08/24/19 History Ergocalciferol (Vitamin D2) 50,000 unit PO Q30D 05/21/19 08/24/19 History [Vitamin D2] Acetaminophen Tab [Tylenol Tab] 500 mg PO BID 08/24/19 08/24/19 History Baclofen [Lioresal] 10 mg PO Q6H PRN 08/24/19 08/24/19 History HYDROcodone/APAP 10-325MG [[place] 1 tab PO TID 08/24/19 08/24/19 History 10-325] Isosorbide Mononitrate ER [Imdur] 30 mg PO DAILY 08/24/19 08/24/19 History Nitroglycerin Sl Tabs [Nitrostat] 0.4 mg SUBLINGUAL Q5M PRN 08/24/19 08/24/19 History Ondansetron [Zofran] 4 mg PO Q6H PRN 08/24/19 08/24/19 History traZODone HCL 50 - 100 mg PO HS PRN 08/24/19 08/24/19 History Allergies Allergy/AdvReac Type Severity Reaction Status Date / Time codeine Allergy Itching Verified 08/24/19 15:21 [From Tylenol-Codeine #3] Penicillins Allergy Rash/Hives Verified 08/24/19 15:21 Physical Exam Vitals: Vital Signs Temp Pulse Pulse Resp BP BP Pulse Ox 08/25/19 08:00 97.8 F 60 18 97/62 100 08/25/19 04:00 98.0 F 58 L 16 94/58 100 08/25/19 00:00 97.9 F 80 16 84/53 96 08/24/19 21:22 100 08/24/19 20:00 98.1 F 81 16 101/72 99 08/24/19 18:19 68 16 99/50 08/24/19 17:15 68 16 102/65 08/24/19 14:45 97.8 F 73 16 131/79 98 Intake and Output 08/24/19 08/25/19 08/25/19 22:59 06:59 14:59 Intake Total 160 0 Balance 160 0 Intake: Oral 160 0 Other: # Voids 1 Weight 47.3 kg - Constitutional General appearance: no acute distress - Respiratory Respiratory: bilateral: CTA - Cardiovascular Rhythm: regular Heart sounds: normal: S1, S2 Results 08/24/19 15:45 08/24/19 15:45 Cardiac Enzymes 08/24/19 08/24/19 08/24/19 Range/Units 15:45 15:45 22:03 AST 25 (14-36) U/L Troponin I <0.012 <0.012 (0.000-0.034) ng/mL 08/25/19 Range/Units 03:30 AST (14-36) U/L Troponin I <0.012 (0.000-0.034) ng/mL Coagulation 08/24/19 Range/Units 16:13 PT 10.5 (9.0-12.0) sec APTT 26.2 (22.0-30.0) sec Lipids 08/25/19 Range/Units 05:44 Triglycerides 70 (<150) mg/dL Cholesterol 110 (<200) mg/dL HDL Cholesterol 40 (40-60) mg/dL CBC 08/24/19 Range/Units 15:45 WBC 8.1 (3.8-10.6) k/uL RBC 4.09 (3.80-5.40) m/uL Hgb 12.9 (11.4-16.0) gm/dL Hct 38.4 (34.0-46.0) % Plt Count 333 (150-450) k/uL Comprehensive Metabolic Panel 08/24/19 Range/Units 15:45 Sodium 141 (137-145) mmol/L Potassium 4.4 (3.5-5.1) mmol/L Chloride 110 H (98-107) mmol/L Carbon Dioxide 23 (22-30) mmol/L BUN 9 (7-17) mg/dL Creatinine 0.76 (0.52-1.04) mg/dL Glucose 86 (74-99) mg/dL Calcium 10.5 H (8.4-10.2) mg/dL AST 25 (14-36) U/L ALT 23 (9-52) U/L Alkaline Phosphatase 75 (38-126) U/L Total Protein 6.8 (6.3-8.2) g/dL Albumin 4.0 (3.5-5.0) g/dL Current Medications Generic Name Dose Route Start Last Admin Trade Name Freq PRN Reason Stop Dose Admin Acetaminophen 650 mg 08/24/19 19:27 08/25/19 06:21 Tylenol Tab PO 650 mg Q8HR PRN Administration Fever and/ or Pain Alprazolam 0.5 mg 08/24/19 18:44 08/25/19 09:07 Xanax PO 0.5 mg TID PRN Administration Anxiety Aspirin 325 mg 08/25/19 09:00 08/25/19 08:47 Aspirin PO 325 mg DAILY TR Administration Baclofen 10 mg 08/24/19 18:44 08/25/19 03:51 Lioresal PO 10 mg Q6H PRN Administration Muscle Spasm Docusate Sodium 100 mg 08/24/19 18:44 08/25/19 06:24 Colace PO 100 mg BID PRN Administration Constipation Furosemide 20 mg 08/24/19 20:00 08/25/19 08:47 Lasix PO 20 mg BID@0900,1600 [facility] Administration Isosorbide Mononitrate 30 mg 08/25/19 09:00 08/25/19 08:47 Imdur PO 30 mg DAILY TR Administration Levothyroxine Sodium 100 mcg 08/25/19 06:30 08/25/19 06:22 Synthroid PO 100 mcg 0630 TR Administration Metoprolol Succinate 50 mg 08/25/19 09:00 08/25/19 08:47 Toprol Xl PO 50 mg DAILY TR Administration Nitroglycerin 0.4 mg 08/24/19 18:44 Nitrostat SUBLINGUAL Q5M PRN Chest Pain Ondansetron HCl 4 mg 08/24/19 18:44 Zofran PO Q6H PRN Nausea And Vomiting Pantoprazole Sodium 40 mg 08/25/19 09:00 08/25/19 08:56 Protonix IVP 40 mg DAILY TR Administration Pravastatin Sodium 80 mg 08/24/19 21:00 08/24/19 20:41 Pravachol PO 80 mg HS TR Administration Spironolactone 12.5 mg 08/25/19 09:00 08/25/19 08:47 Aldactone PO 12.5 mg DAILY TR Administration Topiramate 50 mg 08/24/19 21:00 08/25/19 08:47 Topamax PO 50 mg BID TR Administration Trazodone HCl 100 mg 08/24/19 18:44 08/24/19 23:03 Desyrel PO 50 mg HS PRN Administration Insomnia Intake and Output 08/24/19 08/25/19 08/25/19 22:59 06:59 14:59 Intake Total 160 0 Balance 160 0 Intake: Oral 160 0 Other: # Voids 1 Weight 47.3 kg 08/24/19 15:45 08/24/19 15:45 Assessment and Plan Assessment: Assessment #1 atypical chest pain #2 chronic pain syndrome #3 multiple psychiatric disorder #4 smoking Plan #1 acute coronary event was ruled out #2 severe underlying coronary artery disease was ruled out as well #3 from the cardiac vascular standpoint of view, the patient can be discharged home
--- NOTE | 2019-08-25 15:49 | HP ---
HISTORY AND PHYSICAL CHIEF COMPLAINT: Chest pain. HISTORY OF PRESENT ILLNESS: This is another of many admissions for this 49-year-old white female who is well known for not taking good care of herself. She has a long-standing history of analgesic abuse, over utilization of tranquilizers, nicotine abuse, etc. She has COPD and she does have a history of coronary artery disease. She came to the emergency room with fairly atypical chest pain. Enzymes are normal. EKG was unchanged. She was admitted. REVIEW OF SYSTEMS: She has had no syncope, blackouts, change in vision or hearing, cough, hemoptysis, sputum production, fever, chills, orthopnea, PND, abdominal pain, nausea, vomiting, hematemesis, melena, hematochezia, jaundice, hepatitis, renal failure, dysuria, frequency, urgency, hematuria, etc. Past medical history, family history, and personal and social histories are all otherwise unremarkable. Medications are extensive and can be found in the MAR in her chart. She constantly requests analgesics for low back pain. PHYSICAL EXAMINATION: Blood pressure 132/64 with a pulse of 79, respirations of 27. She is afebrile. In general, she appeared to be asthenic, pale and in no acute distress. Head, ears, eyes, nose, mouth, and throat were normal other than her normal deformity of the jaw. Neck veins not distended. Carotids normal. Chest is clear. Cardiac exam demonstrates sinus rhythm and no murmurs or extra sounds. Abdomen is flat, soft, nontender without visceromegaly or masses. She was tender over the lower LS spine. Extremities are normal. Neurologically she is intact. IMPRESSION: She is admitted to the hospital with diagnoses: 1. Chest pain. 2. History of coronary artery disease. 3. Chronic obstructive pulmonary disease. 4. Low back pain. 5. Analgesic abuse. PLAN: 1. Bed rest. 2. IV fluids. 3. Serial EKGs and enzymes. 4. Cardiology consult. MMODL / IJN: [id number] /
--- NOTE | 2019-08-25 18:04 | DS ---
DISCHARGE SUMMARY CHIEF COMPLAINT: Chest pain. HISTORY OF PRESENT ILLNESS AND PHYSICAL EXAM: Details of this lady's history and physical can be found in the initial workup. LABORATORY STUDIES: While she was the hospital, she had laboratory studies, details of which can be found in the laboratory section of her chart. COURSE IN HOSPITAL: After admission, she was placed on bedrest and started on intravenous fluids and she had serial EKGs and enzymes and they were normal. She was seen by Cardiology and it was felt that she was stable enough to be able to be discharged. She will go home on her usual diet and activity and usual medications. She will come into the office in a day or 2 to be followed up. FINAL DIAGNOSES: 1. Chest pain. 2. History of coronary artery disease. 3. Chronic obstructive pulmonary disease. 4. Osteoarthritis of the lumbosacral spine with an intractable back pain. OPERATIONS: None. CONSULTATIONS: Cardiology. She is improved. MMRADHA / JASPERN: [id number] /
== END 2019-08-25 13:03 | disposition home or self-care (01) ==
LOC: EC 14:39 → 3SCARD 17:45
PROVIDERS: ADMIT Family Medicine; ATTEND Family Medicine
DX: R07.89 Other chest pain (principal); I25.10 Atherosclerotic heart disease of native coronary artery without angina pectoris; J44.9 Chronic obstructive pulmonary disease, unspecified; M47.817 Spondylosis without myelopathy or radiculopathy, lumbosacral region; F55.8 Abuse of other non-psychoactive substances; G89.4 Chronic pain syndrome; M54.5 Low back pain; Z63.8 Other specified problems related to primary support group; I50.9 Heart failure, unspecified; M79.7 Fibromyalgia; K21.9 Gastro-esophageal reflux disease without esophagitis; F41.9 Anxiety disorder, unspecified; F31.9 Bipolar disorder, unspecified; F20.9 Schizophrenia, unspecified; E07.9 Disorder of thyroid, unspecified; R00.9 Unspecified abnormalities of heart beat; F17.210 Nicotine dependence, cigarettes, uncomplicated; Z87.09 Personal history of other diseases of the respiratory system; Z90.49 Acquired absence of other specified parts of digestive tract; Z87.11 Personal history of peptic ulcer disease; Z79.890 Hormone replacement therapy; Z79.899 Other long term (current) drug therapy; Z79.891 Long term (current) use of opiate analgesic; Z88.5 Allergy status to narcotic agent; Z88.0 Allergy status to penicillin
CPT/HCPCS: 96375 ×2; 93005 ×2; 96374; 99285; 36415; 94760; 83880; 80061; 80053; 82150; 83735; 84484 ×2; 85025; 85610; 85730; 81001; 80306; 71046; G0378 ×2; J2405; J1885; C9113

== ENCOUNTER 2019-09-28 18:44 | Emergency (ER) | payer OTHER ==
[2019-09-28 18:53] VITALS: TEMP 98.3
--- NOTE | 2019-09-28 19:05 | ED ---
General Adult HPI - General Chief complaint: Chest Pain Stated complaint: SOB Time Seen by Provider: 09/28/19 18:44 Source: patient, EMS, RN notes reviewed, old records reviewed Mode of arrival: EMS Limitations: no limitations - History of Present Illness Initial comments: Is a 49-year-old female presents emergency department stating she has a past medical history significant for fibromyalgia as well as gastroesophageal reflux and emphysema. Patient comes in today because she states she's had a cough but she is already on Cipro. Patient states she's been short of breath for quite a while and had chest pain for over 2 months. Patient states the chest pain is worse with deep inspiration. Patient states she has COPD but she does continue to smoke. Patient states she is coughing quite a bit coughing up some sputum. Patient states she is on Cipro. Patient also states she has fibromyalgia and her body aches are normal for her. Patient complains of a mild headache as well. - Related Data Home Medications Medication Instructions Recorded Confirmed Docusate [Colace] 100 mg PO BID PRN 11/22/16 08/24/19 Furosemide [Lasix] 20 mg PO BID 11/22/16 08/24/19 Levothyroxine Sodium [Synthroid] 100 mcg PO DAILY 11/22/16 08/24/19 Pravastatin Sodium [Pravachol] 80 mg PO HS 11/22/16 08/24/19 Topiramate [Topamax] 50 mg PO BID 11/22/16 08/24/19 Metoprolol Succinate [Toprol XL] 50 mg PO DAILY 04/09/19 08/24/19 Spironolactone 12.5 mg PO DAILY 04/09/19 08/24/19 ALPRAZolam [Xanax] 0.5 mg PO TID PRN 05/21/19 08/24/19 Ergocalciferol (Vitamin D2) 50,000 unit PO Q30D 05/21/19 08/24/19 [Vitamin D2] Acetaminophen Tab [Tylenol] 500 mg PO BID 08/24/19 08/24/19 Baclofen [Lioresal] 10 mg PO Q6H PRN 08/24/19 08/24/19 HYDROcodone/APAP 10-325MG [[place] 1 tab PO TID 08/24/19 08/24/19 10-325] Isosorbide Mononitrate ER [Imdur] 30 mg PO DAILY 08/24/19 08/24/19 Nitroglycerin Sl Tabs [Nitrostat] 0.4 mg SUBLINGUAL Q5M PRN 08/24/19 08/24/19 Ondansetron [Zofran] 4 mg PO Q6H PRN 08/24/19 08/24/19 traZODone HCL 50 - 100 mg PO HS PRN 08/24/19 08/24/19 Allergies Allergy/AdvReac Type Severity Reaction Status Date / Time codeine Allergy Itching Verified 08/24/19 15:21 [From Tylenol-Codeine #3] Penicillins Allergy Rash/Hives Verified 08/24/19 15:21 Review of Systems ROS Statement: Those systems with pertinent positive or pertinent negative responses have been documented in the HPI. ROS Other: All systems not noted in ROS Statement are negative. Past Medical History Past Medical History: Chest Pain / Angina, Heart Failure, COPD, Fibromyalgia, GERD/Reflux, Thyroid Disorder Additional Past Medical History / Comment(s): STATES IRREGULAR HEARTBEAT, HEADACHES, BRONCHITIS, SEE CARDIOLOGY H & P. peptic ulcers, anxiety, hyster, choley. History of Any Multi-Drug Resistant Organisms: None Reported Past Surgical History: Cholecystectomy, Hysterectomy Past Anesthesia/Blood Transfusion Reactions: No Reported Reaction Past Psychological History: Anxiety, Bipolar, Depression, Schizophrenia Smoking Status: Current every day smoker Past Alcohol Use History: None Reported Past Drug Use History: Marijuana - Past Family History Mother Family Medical History: No Reported History General Exam - General Exam Comments Initial Comments: GENERAL: Patient is well-developed and well-nourished. Patient is nontoxic and well- hydrated and is in no acute distress. Patient is talking nonstop and oxygen he had 100% on room air. ENT: Neck is soft and supple. No significant lymphadenopathy is noted. Oropharynx is clear. Moist mucous membranes. Neck has full range of motion without eliciting any pain. EYES: The sclera were anicteric and conjunctiva were pink and moist. Extraocular movements were intact and pupils were equal round and reactive to light. Eyelids were unremarkable. PULMONARY: Unlabored respirations. Good breath sounds bilaterally. No audible rales rhonchi or wheezing was noted. CARDIOVASCULAR: There is a regular rate and rhythm without any murmurs gallops or rubs. ABDOMEN: Soft and nontender with normal bowel sounds. SKIN: Skin is clear with no lesions or rashes and otherwise unremarkable. NEUROLOGIC: Patient is alert and oriented x3. Cranial nerves II through XII are grossly i ntact. Motor and sensory are also intact. Normal speech, volume and content. Symmetrical smile. MUSCULOSKELETAL: Normal extremities with adequate strength and full range of motion. No lower extremity swelling or edema. No calf tenderness. LYMPHATICS: No significant lymphadenopathy is noted PSYCHIATRIC: Normal psychiatric evaluation. Limitations: no limitations Course Vital Signs 09/28/19 09/28/19 18:45 19:40 Temperature 98.3 F Pulse Rate 91 85 Respiratory 20 18 Rate Blood Pressure 110/84 113/66 O2 Sat by Pulse 100 97 Oximetry Medical Decision Making - Medical Decision Making EKG shows normal sinus rhythm at 85 bpm NC interval 138 QRS is 78 QT interval 394 QTC is 468. EKG shows no ST segment elevation or depression. I went back into reevaluate the patient she was sleeping soundly in no respiratory distress her pulse ox is 98% on room air blood pressure and heart rate were normal. - Lab Data Result diagrams: 09/28/19 19:01 09/28/19 19:01 Lab Results 09/28/19 09/28/19 09/28/19 Range/Units 19:01 19:01 19:01 WBC 8.7 (3.8-10.6) k/uL RBC 3.88 (3.80-5.40) m/uL Hgb 12.2 (11.4-16.0) gm/dL Hct 37.2 (34.0-46.0) % MCV 95.8 (80.0-100.0) fL MCH 31.3 (25.0-35.0) pg MCHC 32.7 (31.0-37.0) g/dL RDW 14.9 (11.5-15.5) % Plt Count 344 (150-450) k/uL Neutrophils % 41 % Lymphocytes % 48 % Monocytes % 5 % Eosinophils % 1 % Basophils % 1 % Neutrophils # 3.6 (1.3-7.7) k/uL Lymphocytes # 4.2 (1.0-4.8) k/uL Monocytes # 0.5 (0-1.0) k/uL Eosinophils # 0.1 (0-0.7) k/uL Basophils # 0.1 (0-0.2) k/uL Hypochromasia Slight PT 10.8 (9.0-12.0) sec INR 1.0 (<1.2) APTT 26.1 (22.0-30.0) sec Sodium 143 (137-145) mmol/L Potassium 3.3 L (3.5-5.1) mmol/L Chloride 116 H (98-107) mmol/L Carbon Dioxide 21 L (22-30) mmol/L Anion Gap 6 mmol/L BUN 6 L (7-17) mg/dL Creatinine 0.70 (0.52-1.04) mg/dL Est GFR (CKD-EPI)AfAm >90 (>60 ml/min/1.73 sqM) Est GFR (CKD-EPI)NonAf >90 (>60 ml/min/1.73 sqM) Glucose 100 H (74-99) mg/dL Calcium 9.2 (8.4-10.2) mg/dL Magnesium 2.0 (1.6-2.3) mg/dL Total Bilirubin 0.2 (0.2-1.3) mg/dL AST 19 (14-36) U/L ALT 21 (9-52) U/L Alkaline Phosphatase 76 (38-126) U/L Troponin I (0.000-0.034) ng/mL Total Protein 6.6 (6.3-8.2) g/dL Albumin 3.8 (3.5-5.0) g/dL 09/28/19 Range/Units 19:01 WBC (3.8-10.6) k/uL RBC (3.80-5.40) m/uL Hgb (11.4-16.0) gm/dL Hct (34.0-46.0) % MCV (80.0-100.0) fL MCH (25.0-35.0) pg MCHC (31.0-37.0) g/dL RDW (11.5-15.5) % Plt Count (150-450) k/uL Neutrophils % % Lymphocytes % % Monocytes % % Eosinophils % % Basophils % % Neutrophils # (1.3-7.7) k/uL Lymphocytes # (1.0-4.8) k/uL Monocytes # (0-1.0) k/uL Eosinophils # (0-0.7) k/uL Basophils # (0-0.2) k/uL Hypochromasia PT (9.0-12.0) sec INR (<1.2) APTT (22.0-30.0) sec Sodium (137-145) mmol/L Potassium (3.5-5.1) mmol/L Chloride (98-107) mmol/L Carbon Dioxide (22-30) mmol/L Anion Gap mmol/L BUN (7-17) mg/dL Creatinine (0.52-1.04) mg/dL Est GFR (CKD-EPI)AfAm (>60 ml/min/1.73 sqM) Est GFR (CKD-EPI)NonAf (>60 ml/min/1.73 sqM) Glucose (74-99) mg/dL Calcium (8.4-10.2) mg/dL Magnesium (1.6-2.3) mg/dL Total Bilirubin (0.2-1.3) mg/dL AST (14-36) U/L ALT (9-52) U/L Alkaline Phosphatase (38-126) U/L Troponin I <0.012 (0.000-0.034) ng/mL Total Protein (6.3-8.2) g/dL Albumin (3.5-5.0) g/dL Disposition Clinical Impression: Bronchitis Disposition: HOME SELF-CARE Condition: Good Instructions (If sedation given, give patient instructions): Chronic Bronchitis (ED) Additional Instructions: Patient should continue the antibodies department medical care doctor gave her. Patient should follow-up with a primary medical care doctor on Monday. Patient should return to the emergency department or any worsening symptoms or new sympt oms. Is patient prescribed a controlled substance at d/c from ED?: No Referrals: Jonathon Gould MD [Primary Care Provider] - 1-2 days Time of Disposition: 20:02
[2019-09-28 19:11] LABS: Basophils # (A) 0.1 k/uL (0-0.2); Basophils % (A) 1 %; Eosinophils # (A) 0.1 k/uL (0-0.7); Eosinophils % (A) 1 %; HCT 37.2 % (34.0-46.0); HGB 12.2 gm/dL (11.4-16.0); Hypochromasia Slight; Lymphocytes # (A) 4.2 k/uL (1.0-4.8); Lymphocytes % (A) 48 %; MCH 31.3 pg (25.0-35.0); MCHC 32.7 g/dL (31.0-37.0); MCV 95.8 fL (80.0-100.0); Mean Platelet Volume 6.2; Monocytes # (A) 0.5 k/uL (0-1.0); Monocytes % (A) 5 %; Neutrophils # (A) 3.6 k/uL (1.3-7.7); Neutrophils % (A) 41 %; Platelet Count 344 k/uL (150-450); RBC 3.88 m/uL (3.80-5.40); RDW 14.9 % (11.5-15.5); WBC 8.7 k/uL (3.8-10.6)
[2019-09-28 19:21] LABS: ALT 21 U/L (9-52); AST 19 U/L (14-36); African American GFR (CKD) >90 (>60 ml/min/1.73 sqM); Albumin 3.8 g/dL (3.5-5.0); Alkaline Phosphatase 76 U/L (38-126); Anion Gap 6 mmol/L; Blood Urea Nitrogen 6 mg/dL (7-17); Calcium 9.2 mg/dL (8.4-10.2); Carbon Dioxide 21 mmol/L (22-30); Chloride 116 mmol/L (98-107); Glucose 100 mg/dL (74-99); Potassium 3.3 mmol/L (3.5-5.1); Sodium 143 mmol/L (137-145); Total Bilirubin 0.2 mg/dL (0.2-1.3); Total Protein 6.6 g/dL (6.3-8.2)
[2019-09-28 19:26] LABS: Partial Thromboplastin Time 26.1 sec (22.0-30.0); Prothrombin Time 10.8 sec (9.0-12.0)
--- NOTE | 2019-09-28 19:36 | XR ---
EXAMINATION TYPE: XR chest 2V DATE OF EXAM: 09/28/2019 COMPARISON: 08/24/2019 HISTORY: Short of breath. Chest pain. TECHNIQUE: Frontal and lateral views of the chest are obtained. FINDINGS: There is no heart failure nor confluent pneumonic infiltrate. Costophrenic angles are kristal r. There are no hilar masses. Heart size is normal. IMPRESSION: No active cardiopulmonary disease. Normal heart. No change.
[2019-09-28 19:47] VITALS: BP 113/66; PULSE 85; RESP 18
== END 2019-09-28 20:20 | disposition home or self-care (01) ==
LOC: EC 18:44
DX: J40 Bronchitis, not specified as acute or chronic (principal); M79.7 Fibromyalgia; F41.9 Anxiety disorder, unspecified; F31.9 Bipolar disorder, unspecified; I25.2 Old myocardial infarction; I50.9 Heart failure, unspecified; K21.9 Gastro-esophageal reflux disease without esophagitis; E07.9 Disorder of thyroid, unspecified; F17.200 Nicotine dependence, unspecified, uncomplicated; Z79.899 Other long term (current) drug therapy; Z79.890 Hormone replacement therapy; Z88.5 Allergy status to narcotic agent; Z88.0 Allergy status to penicillin; Z87.19 Personal history of other diseases of the digestive system; Z87.11 Personal history of peptic ulcer disease
CPT/HCPCS: 36415; 71046; 80053; 83735; 84484; 85025; 85610; 85730; 93005; 99285

== ENCOUNTER → 2019-10-07 | Outpatient (CLI) | payer OTHER ==
--- NOTE | 2019-10-07 16:05 | CT ---
EXAMINATION TYPE: CT chest wo con DATE OF EXAM: 10/07/2019 COMPARISON: None HISTORY: copd shortness of breath CT DLP: 103.[address] of the chest was performed with lung and mediastinal window settings submitted. The la ck of contrast limits evaluation of the vascular, mediastinal and parenchymal structures including th e upper abdomen. LUNGS: The lungs are clear and free of infiltrate. No atelectasis. No pulmonary nodule or mass is de tected. No pleural effusion. No CT evidence of interstitial lung disease. MEDIASTINUM/PATRICK: Thoracic aorta is of normal caliber with limited evaluation given lack of contrast . The heart is not enlarged. No evidence for mediastinal mass. No lymph nodes greater than 1cm. UPPER ABDOMEN: No significant abnormality is seen. OTHER: No significant other abnormality. IMPRESSION: 1. No distinct abnormality appreciated.
== END | disposition home or self-care (01) ==
LOC: RADCTMAIN 14:08
PROVIDERS: ATTEND Family Medicine
DX: R06.02 Shortness of breath (principal); Z88.0 Allergy status to penicillin; Z88.5 Allergy status to narcotic agent
CPT/HCPCS: 71250

== ENCOUNTER 2019-10-22 11:44 | Emergency (ER) | payer OTHER ==
[2019-10-22 12:11] VITALS: RESP 18
[2019-10-22] MEDS ORDERED: SODIUM CHLORIDE 0.9% 500 ML 500 ML IV STA (12:29)
[2019-10-22 13:18] LABS: Basophils # (A) 0.1 k/uL (0-0.2); Basophils % (A) 1 %; Eosinophils % (A) 1 %; HGB 13.1 gm/dL (11.4-16.0); Lymphocytes # (A) 2.8 k/uL (1.0-4.8); Lymphocytes % (A) 42 %; MCH 30.1 pg (25.0-35.0); MCHC 32.1 g/dL (31.0-37.0); MCV 93.8 fL (80.0-100.0); Mean Platelet Volume 7.6; Monocytes # (A) 0.3 k/uL (0-1.0); Monocytes % (A) 4 %; Neutrophils # (A) 3.3 k/uL (1.3-7.7); Neutrophils % (A) 49 %; Platelet Count 327 k/uL (150-450); RBC 4.37 m/uL (3.80-5.40); RDW 14.4 % (11.5-15.5); WBC 6.7 k/uL (3.8-10.6)
[2019-10-22 13:31] LABS: ALT 29 U/L (9-52); AST 19 U/L (14-36); African American GFR (CKD) >90 (>60 ml/min/1.73 sqM); Albumin 4.2 g/dL (3.5-5.0); Alkaline Phosphatase 80 U/L (38-126); Anion Gap 8 mmol/L; Blood Urea Nitrogen 9 mg/dL (7-17); Calcium 9.9 mg/dL (8.4-10.2); Carbon Dioxide 25 mmol/L (22-30); Chloride 108 mmol/L (98-107); Glucose 92 mg/dL (74-99); Magnesium 2.2 mg/dL (1.6-2.3); Non-African American GFR(CKD) 82 (>60 ml/min/1.73 sqM); Potassium 3.6 mmol/L (3.5-5.1); Sodium 141 mmol/L (137-145); Total Bilirubin 0.4 mg/dL (0.2-1.3); Total Protein 6.9 g/dL (6.3-8.2)
[2019-10-22] MEDS ORDERED: KETOROLAC 30 MG/ML 1 ML VIAL IVP STA (13:39)
--- NOTE | 2019-10-22 13:42 | XR ---
EXAMINATION TYPE: XR chest 2V DATE OF EXAM: 10/22/2019 COMPARISON: NONE TECHNIQUE: PA and lateral views submitted. HISTORY: Cough FINDINGS: The lungs are clear and there is no pneumothorax, pleural effusion, or focal pneumonia. Hyperinflat ion suggests COPD. No overt failure. IMPRESSION: 1. No acute process.
[2019-10-22] MEDS ORDERED: LORazepam 1 MG TAB PO STA (14:24)
[2019-10-22] MEDS ORDERED: ALPRAZolam 0.25 MG TAB PO STA (14:39)
--- NOTE | 2019-10-22 14:45 | ED ---
General Adult HPI - General Source: patient, RN notes reviewed, old records reviewed Mode of arrival: EMS Limitations: no limitations <Alfonso Guadarrama - Last Filed: 10/22/19 14:43> <Nayeli Buenrostro - Last Filed: 10/22/19 23:39> - General Chief complaint: Recheck/Abnormal Lab/Rx Stated complaint: herniated disk, COPD Time Seen by Provider: 10/22/19 11:53 - History of Present Illness Initial comments: 49-year-old female patient past history symptoms for fibromyalgia, COPD presents to ED for chief complaint of pain all over. Patient reports that she is on chronic pain medication for her fibromyalgia. Reports that she is [place] prescribed opiate pain medications multiple times per day. Patient reports that she also has very severe anxiety for which she takes Xanax as needed. Patient reports that her primary care provider has been decreasing the amount of the pain medications he prescribes her and her pain is not well controlled. Describes is the same as the fibromyalgia pain that she has had for years. Reports that she is very anxious. Denies any focal area of pain, reports that is generalized. Reports mild waxing and waning cough. Denies any other complaints. Systemic: Pt denies fatigue, fever/chills, rash. Pt denies weakness, night sweats, weight loss. Neuro: Pt denies headache, visual disturbances, syncope or pre-syncope. HEENT: Pt denies ocular discharge or irritation, otalgia, rhinorrhea, pharyngitis or notable lymphadenopathy. Cardiopulmonary: Pt denies chest pain, SOB, heart palpitations, dyspnea on exertion. Abdominal/GI: Pt denies abdominal pain, n/v/d. : Pt denies dysuria, burning w/ urination, frequency/urgency. Denies new onset urinary or bowel incontinence. MSK: Pt denies myalgia, loss of strength or function in extremities. Neuro: Pt denies new onset weakness, paresthesias. (Alfonso Guadarrama) - Related Data Home Medications Medication Instructions Recorded Confirmed Docusate [Colace] 100 mg PO BID PRN 11/22/16 08/24/19 Furosemide [Lasix] 20 mg PO BID 11/22/16 08/24/19 Levothyroxine Sodium [Synthroid] 100 mcg PO DAILY 11/22/16 08/24/19 Pravastatin Sodium [Pravachol] 80 mg PO HS 11/22/16 08/24/19 Topiramate [Topamax] 50 mg PO BID 11/22/16 08/24/19 Metoprolol Succinate [Toprol XL] 50 mg PO DAILY 04/09/19 08/24/19 Spironolactone 12.5 mg PO DAILY 04/09/19 08/24/19 ALPRAZolam [Xanax] 0.5 mg PO TID PRN 05/21/19 08/24/19 Ergocalciferol (Vitamin D2) 50,000 unit PO Q30D 05/21/19 08/24/19 [Vitamin D2] Acetaminophen Tab [Tylenol] 500 mg PO BID 08/24/19 08/24/19 Baclofen [Lioresal] 10 mg PO Q6H PRN 08/24/19 08/24/19 HYDROcodone/APAP 10-325MG [[place] 1 tab PO TID 08/24/19 08/24/19 10-325] Isosorbide Mononitrate ER [Imdur] 30 mg PO DAILY 08/24/19 08/24/19 Nitroglycerin Sl Tabs [Nitrostat] 0.4 mg SUBLINGUAL Q5M PRN 08/24/19 08/24/19 Ondansetron [Zofran] 4 mg PO Q6H PRN 08/24/19 08/24/19 traZODone HCL 50 - 100 mg PO HS PRN 08/24/19 08/24/19 Allergies Allergy/AdvReac Type Severity Reaction Status Date / Time codeine Allergy Itching Verified 08/24/19 15:21 [From Tylenol-Codeine #3] Penicillins Allergy Rash/Hives Verified 08/24/19 15:21 Review of Systems ROS Other: All systems not noted in ROS Statement are negative. <Alfonso Guadarrama - Last Filed: 10/22/19 14:43> ROS Other: All systems not noted in ROS Statement are negative. <Nayeli Buenrostro - Last Filed: 10/22/19 23:39> ROS Statement: Those systems with pertinent positive or pertinent negative responses have been documented in the HPI. Past Medical History Past Medical History: Chest Pain / Angina, Heart Failure, COPD, Fibromyalgia, GERD/Reflux, Thyroid Disorder Additional Past Medical History / Comment(s): STATES IRREGULAR HEARTBEAT, HEADACHES, BRONCHITIS, SEE CARDIOLOGY H & P. peptic ulcers, anxiety, hyster, choley. History of Any Multi-Drug Resistant Organisms: None Reported Past Surgical History: Cholecystectomy, Hysterectomy Past Anesthesia/Blood Transfusion Reactions: No Reported Reaction Past Psychological History: Anxiety, Bipolar, Depression, Schizophrenia Smoking Status: Current every day smoker Past Alcohol Use History: None Reported Past Drug Use History: Marijuana - Past Family History Mother Family Medical History: No Reported History <Alfonso Guadarrama - Last Filed: 10/22/19 14:43> General Exam Limitations: no limitations <Alfonso Guadarrama - Last Filed: 10/22/19 14:43> - General Exam Comments Initial Comments: Constitutional: NAD, AOX3, Pt has pleasant affect. HEENT: NC/AT, trachea midline, neck supple, no lymphadenopathy. Posterior pharynx non erythematous, without exudates. External ears appear normal, without discharge. Mucous membranes moist. Eyes PERRLA, EOM intact. There is no scleral icterus. No pallor noted. Cardiopulmonary: RRR, no murmurs, rubs or gallops, no JVD noted. Lungs CTAB in anterior and posterior crabtree. No peripheral edema. Abdominal exam: Abdomen soft and non-distended. Abdomen non-tender to palpation in all 4 quadrants. Bowel sounds active in LLQ. No hepatosplenomegaly. No ecchymosis Neuro: CN II-XII intact. No nuchal rigidity. No raccon eyes, no cardona sign, no hemotympanum. No cervical spinal tenderness. MSK: No posterior calf tenderness bilaterally, homans sign negative bilaterally. Posterior tibialis and radial pulse +2 bilaterally. Sensation intact in upper and lower extremities. Full active ROM in upper and lower extremities, 5/5 stregnth. (Alfonso Guadarrama) Course Vital Signs 10/22/19 10/22/19 11:48 15:26 Temperature 98.1 F 97.8 F Pulse Rate 103 H 87 Respiratory 18 18 Rate Blood Pressure 119/91 109/75 O2 Sat by Pulse 98 98 Oximetry Medical Decision Making - Lab Data Result diagrams: 10/22/19 12:57 10/22/19 12:57 - EKG Data -: EKG Interpreted by Me (and Dr. Buenrostro) <Alfonso Guadarrama - Last Filed: 10/22/19 14:43> - Lab Data Result diagrams: 10/22/19 12:57 10/22/19 12:57 <Nayeli Buenrostro - Last Filed: 10/22/19 23:39> - Medical Decision Making 49-year-old female patient presents to ED for chief complaint of chronic pain secondary to fibromyalgia. Patient vital signs are stable, afebrile. Physical exam did not display acute pathology. Laboratory investigations are noncompressive. Troponin is negative. Chest x-ray is negative. EKG nonischemic. Explained to patinet that we do not manage chronic pain such as fibromyalgia from the ED. Patient was understanding. Patient Mr. at home dose anti-anxiolytic. Patient discharged, follow up with primary care provider and will return to ER if condition worsens. Case discussed with Dr. Buenrostro. (Alfonso Guadarrama) I was available for consultation in the emergency department. The history and physical exam were done by the midlevel provider. I was consulted for this patients care. I reviewed the case with the midlevel provider and based on their presentation of the patient, I agree with the assessment, medical decision making and plan of care as documented. Chart was dictated using [employer] dictation software. Attempts were made to correct any dictation errors however some typographical errors may persist. (Nayeli Buenrostro) - Lab Data Lab Results 10/22/19 10/22/19 10/22/19 Range/Units 12:57 12:57 12:57 WBC 6.7 (3.8-10.6) k/uL RBC 4.37 (3.80-5.40) m/uL Hgb 13.1 (11.4-16.0) gm/dL Hct 41.0 (34.0-46.0) % MCV 93.8 (80.0-100.0) fL MCH 30.1 (25.0-35.0) pg MCHC 32.1 (31.0-37.0) g/dL RDW 14.4 (11.5-15.5) % Plt Count 327 (150-450) k/uL Neutrophils % 49 % Lymphocytes % 42 % Monocytes % 4 % Eosinophils % 1 % Basophils % 1 % Neutrophils # 3.3 (1.3-7.7) k/uL Lymphocytes # 2.8 (1.0-4.8) k/uL Monocytes # 0.3 (0-1.0) k/uL Eosinophils # 0.0 (0-0.7) k/uL Basophils # 0.1 (0-0.2) k/uL Sodium 141 (137-145) mmol/L Potassium 3.6 (3.5-5.1) mmol/L Chloride 108 H (98-107) mmol/L Carbon Dioxide 25 (22-30) mmol/L Anion Gap 8 mmol/L BUN 9 (7-17) mg/dL Creatinine 0.84 (0.52-1.04) mg/dL Est GFR (CKD-EPI)AfAm >90 (>60 ml/min/1.73 sqM) Est GFR (CKD-EPI)NonAf 82 (>60 ml/min/1.73 sqM) Glucose 92 (74-99) mg/dL Calcium 9.9 (8.4-10.2) mg/dL Magnesium 2.2 (1.6-2.3) mg/dL Total Bilirubin 0.4 (0.2-1.3) mg/dL AST 19 (14-36) U/L ALT 29 (9-52) U/L Alkaline Phosphatase 80 (38-126) U/L Troponin I <0.012 (0.000-0.034) ng/mL Total Protein 6.9 (6.3-8.2) g/dL Albumin 4.2 (3.5-5.0) g/dL Lipase 106 (23-300) U/L - EKG Data EKG Comments: 50. 73,. Full 140, QRS 82, QT/QTc 412/453. Normal sinus rhythm, without axis, borderline EKG. No concern for acute ischemia this time. (Alfonso Guadarrama) Disposition Is patient prescribed a controlled substance at d/c from ED?: No <Alfonso Guadarrama - Last Filed: 10/22/19 14:43> <Nayeli Buenrostro - Last Filed: 10/22/19 23:39> Clinical Impression: Chronic pain Disposition: HOME SELF-CARE Condition: Stable Instructions (If sedation given, give patient instructions): Chronic Pain (ED) Additional Instructions: Follow-up with primary care provider tomorrow. Return to ER condition worsens in any way. Referrals: Jonathon Gould MD [Primary Care Provider] - 1-2 days
[2019-10-22 15:26] VITALS: BP 109/75; PULSE 87; TEMP 97.8
== END 2019-10-22 15:33 | disposition home or self-care (01) ==
LOC: EC 11:44
DX: G89.29 Other chronic pain (principal); R05 Cough; M79.7 Fibromyalgia; I50.9 Heart failure, unspecified; F41.9 Anxiety disorder, unspecified; F31.9 Bipolar disorder, unspecified; F17.200 Nicotine dependence, unspecified, uncomplicated; Z79.890 Hormone replacement therapy; Z79.899 Other long term (current) drug therapy; Z88.0 Allergy status to penicillin; Z88.5 Allergy status to narcotic agent; Z88.6 Allergy status to analgesic agent
CPT/HCPCS: 36415; 93005; 80053; 83690; 83735; 84484; 85025; 71046; 99284; 96374; 96361; J1885

== ENCOUNTER → 2019-12-11 | Outpatient (CLI) | payer OTHER ==
[2019-12-11 19:12] LABS: Anion Gap 2.6 mmol/L (4.00-12.00); BUN/Creat Ratio 13.75 Ratio (12.00-20.00); Calcium 9.1 mg/dL (8.7-10.3); Carbon Dioxide 28.4 mmol/L (21.6-31.8); Magnesium 2.2 mg/dL (1.5-2.4); Non-African American GFR(CKD) 87.2 (60.0-200.0); Potassium 4.4 mmol/L (3.5-5.5)
== END | disposition home or self-care (01) ==
LOC: LABWHC1 10:26
PROVIDERS: ATTEND Nurse Practitioner Adult Health
DX: I10 Essential (primary) hypertension (principal)
CPT/HCPCS: 36415; 80048; 83735

== ENCOUNTER → 2020-01-01 | Outpatient (CLI) | payer OTHER ==
[2020-01-01 12:28] VITALS: BP 112/78; PULSE 75; RESP 22
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
== END | disposition home or self-care (01) ==
LOC: PNWHC3 12:08
PROVIDERS: ATTEND Hospitalist
DX: M51.36 Other intervertebral disc degeneration, lumbar region (principal); F19.20 Other psychoactive substance dependence, uncomplicated; F17.200 Nicotine dependence, unspecified, uncomplicated; Z79.899 Other long term (current) drug therapy; Z88.0 Allergy status to penicillin; Z88.5 Allergy status to narcotic agent
CPT/HCPCS: 99211

== ENCOUNTER 2020-01-09 11:04 | Emergency (ER) | payer OTHER ==
[2020-01-09 11:19] VITALS: RESP 18
[2020-01-09] MEDS ORDERED: PANTOPRAZOLE 40 MG/10 ML VIAL IVP STA (11:29)
[2020-01-09] MEDS ORDERED: ONDANSETRON 4 MG/2 ML VIAL IVP STA (11:29)
[2020-01-09] MEDS ORDERED: SODIUM CHLORIDE 0.9% 1,000 ML IV STA (11:29)
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
[2020-01-09 11:52] LABS: Basophils % (A) 0 %; Eosinophils # (A) 0.1 k/uL (0-0.7); Eosinophils % (A) 1 %; HCT 42.1 % (34.0-46.0); HGB 13.4 gm/dL (11.4-16.0); Lymphocytes # (A) 3.1 k/uL (1.0-4.8); Lymphocytes % (A) 26 %; MCH 30.6 pg (25.0-35.0); MCHC 31.9 g/dL (31.0-37.0); MCV 95.9 fL (80.0-100.0); Mean Platelet Volume 7.4; Monocytes # (A) 0.6 k/uL (0-1.0); Monocytes % (A) 5 %; Neutrophils # (A) 7.7 k/uL (1.3-7.7); Neutrophils % (A) 64 %; Platelet Count 380 k/uL (150-450); RBC 4.39 m/uL (3.80-5.40); RDW 15.4 % (11.5-15.5); WBC 11.9 k/uL (3.8-10.6)
[2020-01-09 12:04] LABS: ALT 14 U/L (4-34); AST 25 U/L (14-36); African American GFR (CKD) >90 (>60 ml/min/1.73 sqM); Albumin 4.1 g/dL (3.5-5.0); Alkaline Phosphatase 80 U/L (38-126); Anion Gap 6 mmol/L; Blood Urea Nitrogen 9 mg/dL (7-17); Calcium 9.5 mg/dL (8.4-10.2); Carbon Dioxide 23 mmol/L (22-30); Chloride 110 mmol/L (98-107); Glucose 92 mg/dL (74-99); Non-African American GFR(CKD) >90 (>60 ml/min/1.73 sqM); Potassium 4.1 mmol/L (3.5-5.1); Sodium 139 mmol/L (137-145); Total Bilirubin 0.2 mg/dL (0.2-1.3); Total Protein 7.3 g/dL (6.3-8.2)
[2020-01-09 12:14] LABS: Appearance,Urine Clear (Clear); Bilirubin,Urine Negative (Negative); Blood,Urine Negative (Negative); Color,Urine Yellow; Glucose,Urine (UA) Negative (Negative); Ketones,Urine Negative (Negative); Leukocyte Esterase,Urine Large (Negative); Mucus,Urine Rare /hpf; Nitrite,Urine Negative (Negative); PH, Urine 6.5 (5.0-8.0); Protein,Urine Trace (Negative); RBC,Urine 3 /hpf (0-5); Specific Gravity,Urine 1.021 (1.001-1.035); Squamous Epithelial Cell,Urine 2 /hpf (0-4); Urobilinogen,Urine <2.0 mg/dL (<2.0); WBC,Urine 2 /hpf (0-5)
[2020-01-09 12:55] VITALS: BP 121/88; PULSE 86; TEMP 97.9
== END 2020-01-09 13:00 | disposition home or self-care (01) ==
LOC: EC 11:04
DX: K58.0 Irritable bowel syndrome with diarrhea (principal); K64.8 Other hemorrhoids; F17.200 Nicotine dependence, unspecified, uncomplicated; J44.9 Chronic obstructive pulmonary disease, unspecified; I50.9 Heart failure, unspecified; M79.7 Fibromyalgia; M19.90 Unspecified osteoarthritis, unspecified site; E07.9 Disorder of thyroid, unspecified; K58.1 Irritable bowel syndrome with constipation; G30.9 Alzheimer's disease, unspecified; F02.80 Dementia in other diseases classified elsewhere, unspecified severity, without behavioral disturbance, psychotic disturbance, mood disturbance, and anxiety; F31.9 Bipolar disorder, unspecified; F41.9 Anxiety disorder, unspecified; Z88.0 Allergy status to penicillin; Z88.5 Allergy status to narcotic agent; Z79.1 Long term (current) use of non-steroidal anti-inflammatories (NSAID); Z79.51 Long term (current) use of inhaled steroids; Z79.890 Hormone replacement therapy; Z79.899 Other long term (current) drug therapy; Z90.49 Acquired absence of other specified parts of digestive tract
CPT/HCPCS: 36415; 80053; 85025; 82272; 81001; 99285; 96374; 96375; 96361; J2405; C9113

== ENCOUNTER 2021-10-30 13:24 | Emergency (ER) | payer OTHER ==
[2021-10-30 13:30] VITALS: RESP 19
[2021-10-30] MEDS ORDERED: SODIUM CHLORIDE 0.9% 500 ML 500 ML IV STA (13:39)
[2021-10-30] MEDS ORDERED: HYDROmorphone 0.5 MG/0.5 ML SYRINGE IVP STA (13:39)
[2021-10-30] MEDS ORDERED: ONDANSETRON 4 MG/2 ML VIAL IVP STA (13:39)
[2021-10-30] MEDS ORDERED: KETOROLAC 15 MG/ML 1 ML VIAL IVP STA (13:39)
--- NOTE | 2021-10-30 13:53 | XR ---
EXAMINATION TYPE: XR chest 2V DATE OF EXAM: 10/30/2021 COMPARISON: 10/22/2019 HISTORY: Shortness of breath TECHNIQUE: Frontal and lateral views of the chest are obtained. FINDINGS: There is no focal air space opacity, pleural effusion, or pneumothorax seen. The cardiac silhouette size is within normal limits. The osseous structures are intact. IMPRESSION: No acute cardiopulmonary process.
[2021-10-30 13:58] LABS: Basophils # (A) 0.1 k/uL (0-0.2); Basophils % (A) 1 %; Eosinophils # (A) 0.2 k/uL (0-0.7); Eosinophils % (A) 2 %; HGB 14.9 gm/dL (11.4-16.0); Lymphocytes % (A) 53 %; MCH 31.3 pg (25.0-35.0); MCHC 32.3 g/dL (31.0-37.0); MCV 96.9 fL (80.0-100.0); Mean Platelet Volume 7.8; Monocytes # (A) 0.4 k/uL (0-1.0); Monocytes % (A) 6 %; Neutrophils # (A) 2.8 k/uL (1.3-7.7); Neutrophils % (A) 36 %; Platelet Count 378 k/uL (150-450); RBC 4.75 m/uL (3.80-5.40); RDW 14.1 % (11.5-15.5); WBC 7.6 k/uL (3.8-10.6)
[2021-10-30 14:06] LABS: ALT 12 U/L (4-34); AST 25 U/L (14-36); African American GFR (CKD) >90 (>60 ml/min/1.73 sqM); Albumin 4.4 g/dL (3.5-5.0); Alkaline Phosphatase 113 U/L (38-126); Anion Gap 12 mmol/L; Blood Urea Nitrogen 8 mg/dL (7-17); Calcium 9.5 mg/dL (8.4-10.2); Carbon Dioxide 20 mmol/L (22-30); Chloride 108 mmol/L (98-107); Glucose 91 mg/dL (74-99); Non-African American GFR(CKD) 86 (>60 ml/min/1.73 sqM); Potassium 4.3 mmol/L (3.5-5.1); Sodium 140 mmol/L (137-145); Total Bilirubin 0.4 mg/dL (0.2-1.3); Total Protein 7.4 g/dL (6.3-8.2)
[2021-10-30 14:11] LABS: INR 0.9 (<1.2); Partial Thromboplastin Time 24.6 sec (22.0-30.0); Prothrombin Time 10.1 sec (9.0-12.0)
[2021-10-30] MEDS ORDERED: traMADol 50 MG STARTER PACK 3 TAB BTL PO STA (14:54)
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
[2021-10-30 15:12] VITALS: BP 138/79; PULSE 79; TEMP 98.7
== END 2021-10-30 15:11 | disposition home or self-care (01) ==
LOC: EC 13:24
DX: R07.89 Other chest pain (principal); M94.0 Chondrocostal junction syndrome [Tietze]; J45.909 Unspecified asthma, uncomplicated; I50.9 Heart failure, unspecified; M79.7 Fibromyalgia; K21.9 Gastro-esophageal reflux disease without esophagitis; E07.9 Disorder of thyroid, unspecified; M19.90 Unspecified osteoarthritis, unspecified site; F41.9 Anxiety disorder, unspecified; F31.9 Bipolar disorder, unspecified; F17.200 Nicotine dependence, unspecified, uncomplicated; F12.90 Cannabis use, unspecified, uncomplicated; Z20.822 Contact with and (suspected) exposure to COVID-19; Z88.5 Allergy status to narcotic agent; Z88.0 Allergy status to penicillin; Z90.49 Acquired absence of other specified parts of digestive tract; Z90.710 Acquired absence of both cervix and uterus
CPT/HCPCS: 99285; 96374; 96375 ×2; 36415; 93005; 85379; 83880; 80053; 84484; 85025; 85610; 85730; 87635; 71046; J2405; J1885; J1170

== ENCOUNTER 2022-12-02 16:32 | Emergency (ER) | payer OTHER ==
[2022-12-02] MEDS ORDERED: SODIUM CHLORIDE 0.9% 1,000 ML IV ONE (17:19)
[2022-12-02] MEDS ORDERED: ONDANSETRON 4 MG/2 ML VIAL IVP STA (17:20)
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
[2022-12-02 18:14] LABS: Appearance,Urine Clear (Clear); Bilirubin,Urine Negative (Negative); Blood,Urine Negative (Negative); Color,Urine Yellow; Glucose,Urine (UA) Negative (Negative); Ketones,Urine Negative (Negative); Leukocyte Esterase,Urine Negative (Negative); Nitrite,Urine Negative (Negative); Protein,Urine Trace (Negative); Specific Gravity,Urine 1.033 (1.001-1.035)
[2022-12-02 18:19] LABS: ALT 55 U/L (4-34); AST 32 U/L (14-36); African American GFR (CKD) >90 (>60 ml/min/1.73 sqM); Albumin 3.7 g/dL (3.5-5.0); Alkaline Phosphatase 98 U/L (38-126); Anion Gap 6 mmol/L; Blood Urea Nitrogen 9 mg/dL (7-17); Calcium 8.9 mg/dL (8.4-10.2); Carbon Dioxide 23 mmol/L (22-30); Chloride 111 mmol/L (98-107); Glucose 90 mg/dL (74-99); Lipase 39 U/L (23-300); Non-African American GFR(CKD) 89 (>60 ml/min/1.73 sqM); Potassium 3.4 mmol/L (3.5-5.1); Sodium 140 mmol/L (137-145); Total Bilirubin 0.3 mg/dL (0.2-1.3); Total Protein 6.3 g/dL (6.3-8.2)
[2022-12-02 18:40] LABS: Basophils # (A) 0.1 k/uL (0-0.2); Basophils % (A) 1 %; Eosinophils # (A) 0.2 k/uL (0-0.7); Eosinophils % (A) 3 %; HCT 41.5 % (34.0-46.0); Lymphocytes # (A) 3.1 k/uL (1.0-4.8); Lymphocytes % (A) 50 %; MCH 34.2 pg (25.0-35.0); MCHC 33.8 g/dL (31.0-37.0); MCV 101.3 fL (80.0-100.0); Macrocytosis Slight; Mean Platelet Volume 7.7; Monocytes # (A) 0.5 k/uL (0-1.0); Monocytes % (A) 8 %; Neutrophils # (A) 2.1 k/uL (1.3-7.7); Neutrophils % (A) 35 %; Platelet Count 236 k/uL (150-450); RDW 13.7 % (11.5-15.5); WBC 6.2 k/uL (3.8-10.6)
--- NOTE | 2022-12-02 19:16 | CT ---
EXAMINATION TYPE: CT abdomen pelvis w con DATE OF EXAM: 12/02/2022 COMPARISON: 04/23/2019 HISTORY: N/V/D CT DLP: 445.4 mGycm Automated exposure control for dose reduction was used. CONTRAST: Performed with IV Contrast, patient injected with 70cc mL of Isovue 300. Images obtained from the diaphragm to the floor the pelvis with the IV contrast. Lung bases are clear. No pleural effusion. Heart size is normal. No pericardial effusion. Liver and spleen are intact. There are clips from cholecystectomy. There is large common bile duct. T here is mild ectasia of the intrahepatic bile ducts. There is no evidence of pancreatic mass. No adrenal mass. Kidneys show satisfactory contrast opacific ation. No hydronephrosis. No retroperitoneal adenopathy. Ureters are not dilated. Urinary bladder is almost empty. No inguinal hernia. No pelvic mass. No free fluid in the pelvis. There is hysterectomy. Appendix not seen. No sign of thickened appendix. There is no mesenteric edema. No ascites or free air. No sign of a bowel obstruction. The common bile duct measures 11 mm. The lumbar vertebrae have normal alignment. Posterior elements are intact. No compression fracture. B ed pelvis is intact. The hip joints are intact. IMPRESSION: There is mild ectasia of the biliary tree this is similar to old exam. I do not suspect biliary obstr uction. Appendix not seen. No sign thickened appendix. No acute abnormality in the abdomen and pelvis.
[2022-12-02] MEDS ORDERED: DICYCLOMINE 10 MG/ML 2 ML AMP IM STA (19:38)
[2022-12-02 20:01] VITALS: BP 118/76; PULSE 76; RESP 16; TEMP 98.2
== END 2022-12-02 20:01 | disposition home or self-care (01) ==
LOC: EC 16:32
DX: K58.9 Irritable bowel syndrome, unspecified (principal); R10.9 Unspecified abdominal pain; F31.9 Bipolar disorder, unspecified; I50.9 Heart failure, unspecified; J44.9 Chronic obstructive pulmonary disease, unspecified; K21.9 Gastro-esophageal reflux disease without esophagitis; M19.90 Unspecified osteoarthritis, unspecified site; E07.9 Disorder of thyroid, unspecified; F12.90 Cannabis use, unspecified, uncomplicated; F17.200 Nicotine dependence, unspecified, uncomplicated; Z79.1 Long term (current) use of non-steroidal anti-inflammatories (NSAID); Z79.899 Other long term (current) drug therapy; Z79.890 Hormone replacement therapy; Z88.0 Allergy status to penicillin; Z88.5 Allergy status to narcotic agent; Z88.6 Allergy status to analgesic agent; Z88.8 Allergy status to other drugs, medicaments and biological substances
CPT/HCPCS: 36415; 80053; 83690; 83735; 85025; 81003; 74177; 99284; 96374; 96372; 96361; J0500; J2405; Q9967

== ENCOUNTER 2023-02-14 14:50 | Emergency (ER) | payer OTHER ==
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
[2023-02-14 16:42] LABS: Partial Thromboplastin Time 25.3 sec (22.0-30.0)
--- NOTE | 2023-02-14 16:46 | XR ---
EXAMINATION TYPE: XR KUB DATE OF EXAM: 02/14/2023 4:24 PM INDICATION: Patient age:Female; 52 years old; Reason for study: abdominal pain; COMPARISON: 12/02/2022 CT. TECHNIQUE: One radiographic view of the abdomen was obtained. FINDINGS: The bowel gas pattern is nonspecific without dilated loops of small or large bowel. There i s no evidence for organomegaly or pneumoperitoneum. The osseous structures are intact. No abnormal calcifications are present. Fecal material and gas are demonstrated throughout the colon and rectum. Right upper quadrant cholecystectomy clips. IMPRESSION: Nonspecific bowel gas pattern without radiographic evidence for acute process.
[2023-02-14 17:19] LABS: ALT 16 U/L (4-34); AST 21 U/L (14-36); African American GFR (CKD) >90 (>60 ml/min/1.73 sqM); Albumin 3.8 g/dL (3.5-5.0); Alkaline Phosphatase 62 U/L (38-126); Amylase 43 U/L (30-110); Anion Gap 8 mmol/L; Blood Urea Nitrogen 10 mg/dL (7-17); Calcium 9.1 mg/dL (8.4-10.2); Carbon Dioxide 24 mmol/L (22-30); Chloride 110 mmol/L (98-107); Glucose 82 mg/dL (74-99); Lipase 44 U/L (23-300); Non-African American GFR(CKD) >90 (>60 ml/min/1.73 sqM); Potassium 4.4 mmol/L (3.5-5.1); Sodium 142 mmol/L (137-145); Total Bilirubin 0.3 mg/dL (0.2-1.3); Total Protein 6.4 g/dL (6.3-8.2)
[2023-02-14 17:43] LABS: HCT 42.5 % (34.0-46.0); HGB 14.1 gm/dL (11.4-16.0); MCH 33.6 pg (25.0-35.0); MCHC 33.2 g/dL (31.0-37.0); MCV 101.1 fL (80.0-100.0); Platelet Count 290 k/uL (150-450); RDW 13.1 % (11.5-15.5)
[2023-02-14 18:00] LABS: Band Neutrophils % 2 %; Basophils # (M) 0.05 k/uL (0-0.2); Eosinophils # (M) 0.05 k/uL (0-0.7); Lymphocytes # (M) 2.55 k/uL (1.0-4.8); Neutrophils % (M) 37 %; Nucleated Red Blood Cells 0 /100 WBC (0-0); Total Cells Counted 100
[2023-02-14] MEDS ORDERED: SODIUM CHLORIDE 0.9% 1,000 ML IV STA (19:05)
[2023-02-14] MEDS ORDERED: ONDANSETRON 4 MG/2 ML VIAL IVP STA (19:15)
[2023-02-14] MEDS ORDERED: KETOROLAC 15 MG/ML 1 ML VIAL IVP STA (19:15)
[2023-02-14] MEDS ORDERED: METOCLOPRAMIDE 5 MG/ML 2 ML VIAL IVP STA (19:36)
[2023-02-14 19:48] LABS: Appearance,Urine Clear (Clear); Bilirubin,Urine Negative (Negative); Blood,Urine Negative (Negative); Color,Urine Yellow; Glucose,Urine (UA) Negative (Negative); Ketones,Urine 1+ (Negative); Leukocyte Esterase,Urine Negative (Negative); Nitrite,Urine Negative (Negative); PH, Urine 6.5 (5.0-8.0); Protein,Urine Trace (Negative); Urobilinogen,Urine <2.0 mg/dL (<2.0)
--- NOTE | 2023-02-14 19:57 | CT ---
EXAMINATION TYPE: CT abdomen pelvis w con CT DLP: 449 mGycm, Automated exposure control for dose reduction was used. DATE OF EXAM: 02/14/2023 7:25 PM COMPARISON: CT abdomen pelvis most recent from 12/02/2022 CLINICAL INDICATION:Female, 52 years old with history of abdominal pain; abdominal pain, weakness and diarrhea TECHNIQUE: Axial CT of the abdomen and pelvis. Sagittal and coronal reformats were created on a [employer] workstation. Contrast used:80 mL of Isovue 300 with IV Contrast, Oral contrast used: without Oral Contrast FINDINGS: LOWER CHEST: Unremarkable ABDOMEN LIVER: Unremarkable GALLBLADDER AND BILE DUCTS: Gallbladder is surgically absent with mild intrahepatic and extra hepatic biliary dilatation likely physiologic and a postcholecystectomy change. No evidence of choledocholit hiasis. PANCREAS: Unremarkable. SPLEEN: Unremarkable ADRENAL GLANDS: Unremarkable. KIDNEYS AND URETERS: No evidence of hydronephrosis or renal calculus. The ureters are unremarkable. PELVIS BLADDER: Unremarkable REPRODUCTIVE: Unremarkable. ABDOMEN & PELVIS STOMACH AND BOWEL: No evidence of bowel obstruction. Appendix not definitively visualized no secondar y signs of appendicitis. PERITONEUM/RETROPERITONEUM: No evidence of pneumoperitoneum or free fluid. VASCULATURE: No evidence of aortic aneurysm. Dilated left renal vein secondary to narrowing as it pa sses between the superior mesenteric artery and aorta. MUSCULOSKELETAL: No acute osseous abnormalities LYMPH NODES: No gross evidence for lymphadenopathy. SOFT TISSUE/ABDOMINAL WALL: Unremarkable IMPRESSION: 1. No evidence for acute intraluminal process. 2. Findings suggestive of nutcracker syndrome with narrowing of the left renal vein as it crosses th e superior mesenteric artery and aorta.
[2023-02-14 20:14] LABS: Specific Gravity,Urine 1.049 (1.001-1.035)
[2023-02-14 22:11] VITALS: BP 106/71; PULSE 69; RESP 14; TEMP 98.2
== END 2023-02-14 22:19 | disposition home or self-care (01) ==
LOC: EC 14:50
DX: R19.7 Diarrhea, unspecified (principal); R10.9 Unspecified abdominal pain; I50.9 Heart failure, unspecified; J44.9 Chronic obstructive pulmonary disease, unspecified; K21.9 Gastro-esophageal reflux disease without esophagitis; M19.90 Unspecified osteoarthritis, unspecified site; E07.9 Disorder of thyroid, unspecified; F41.9 Anxiety disorder, unspecified; F31.9 Bipolar disorder, unspecified; F17.200 Nicotine dependence, unspecified, uncomplicated; F12.90 Cannabis use, unspecified, uncomplicated; Z79.890 Hormone replacement therapy; Z79.1 Long term (current) use of non-steroidal anti-inflammatories (NSAID); Z79.899 Other long term (current) drug therapy; Z88.0 Allergy status to penicillin; Z88.5 Allergy status to narcotic agent
CPT/HCPCS: 36415; 80053; 82150; 83605; 83690; 83735; 85025; 85610; 85730; 82272; 81003; 87324; 87045; 87046; 74018; 74177; 99284; 96374; 96375; 96361; J2765; J1885; Q9967

== ENCOUNTER 2024-03-12 18:42 | Emergency (ER) | payer OTHER ==
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
--- NOTE | 2024-03-12 19:58 | XR ---
EXAMINATION TYPE: XR chest 2V DATE OF EXAM: 03/12/2024 7:52 PM CLINICAL INDICATION:Female, 53 years old with history of Chest Pain; [facility] COMPARISON: Chest radiographs from 01/05/2023. TECHNIQUE: XR chest 2V Frontal and lateral views of the chest. FINDINGS: Lungs/Pleura: There is no evidence of pleural effusion, focal consolidation, or pneumothorax. Pulmonary vascularity: Unremarkable. Heart/mediastinum: Cardiomediastinal silhouette is unremarkable. Musculoskeletal: No acute osseous pathology. IMPRESSION: No acute cardiopulmonary disease/process.
[2024-03-12 20:36] LABS: HCT 45.5 % (34.0-46.0); MCH 31.5 pg (25.0-35.0); MCHC 30.9 g/dL (31.0-37.0); MCV 102.2 fL (80.0-100.0); Macrocytosis Slight; Mean Platelet Volume 7.7; Platelet Count 280 k/uL (150-450); RBC 4.45 m/uL (3.80-5.40); RDW 13.8 % (11.5-15.5); WBC 8.2 k/uL (3.8-10.6)
[2024-03-12 20:45] LABS: Partial Thromboplastin Time 26.5 sec (22.0-30.0); Prothrombin Time 11.2 sec (10.0-12.5)
[2024-03-12 21:16] LABS: ALT 15 U/L (4-34); AST 23 U/L (14-36); African American GFR (CKD) >90 (>60 ml/min/1.73 sqM); Albumin 4.3 g/dL (3.5-5.0); Alkaline Phosphatase 76 U/L (38-126); Anion Gap 6 mmol/L; Blood Urea Nitrogen 11 mg/dL (7-17); Calcium 9.3 mg/dL (8.4-10.2); Carbon Dioxide 21 mmol/L (22-30); Chloride 113 mmol/L (98-107); Glucose 91 mg/dL (74-99); Lipase 54 U/L (23-300); Non-African American GFR(CKD) 84 (>60 ml/min/1.73 sqM); Potassium 4.2 mmol/L (3.5-5.1); Sodium 140 mmol/L (137-145); Total Bilirubin 0.3 mg/dL (0.2-1.3); Total Protein 7.1 g/dL (6.3-8.2)
[2024-03-12 21:57] LABS: Basophils # (M) 0.08 k/uL (0-0.2); Lymphocytes # (M) 3.28 k/uL (1.0-4.8); Monocytes # (M) 0.57 k/uL (0-1.0); Neutrophils # (M) 4.26 k/uL (1.3-7.7); Neutrophils % (M) 52 %; Nucleated Red Blood Cells 0 /100 WBC (0-0); Total Cells Counted 100
[2024-03-12 21:59] LABS: Appearance,Urine Clear (Clear); Bilirubin,Urine Negative (Negative); Blood,Urine Negative (Negative); Color,Urine Yellow; Glucose,Urine (UA) Negative (Negative); Ketones,Urine Negative (Negative); Leukocyte Esterase,Urine Negative (Negative); Nitrite,Urine Negative (Negative); Protein,Urine Trace (Negative); Specific Gravity,Urine 1.036 (1.001-1.035)
[2024-03-12] MEDS: SODIUM CHLORIDE 0.9% 500 ML 500 ML IV STA (22:15)
[2024-03-12] MEDS: KETOROLAC 15 MG/ML 1 ML VIAL IVP STA (22:16)
[2024-03-12] MEDS: LIDOCAINE 4% PATCH TOPICAL ONE (23:10)
[2024-03-12 23:53] VITALS: BP 123/80; PULSE 56; RESP 17; TEMP 97.8
== END 2024-03-12 23:17 | disposition home or self-care (01) ==
LOC: EC 18:42
DX: J44.9 Chronic obstructive pulmonary disease, unspecified (principal); R07.81 Pleurodynia; B37.31 Acute candidiasis of vulva and vagina; F17.200 Nicotine dependence, unspecified, uncomplicated; F12.90 Cannabis use, unspecified, uncomplicated; Z88.0 Allergy status to penicillin; Z88.5 Allergy status to narcotic agent
CPT/HCPCS: 36415; 93005; 80053; 83690; 84484; 85025; 85610; 85730; 81003; 71046; 99285; 96374; 96361; 99406; J1885

== ENCOUNTER → 2024-08-14 | Outpatient (CLI) | payer OTHER ==
--- NOTE | 2024-08-14 16:56 | MR ---
EXAMINATION TYPE: MR lumbar spine wo/w con DATE OF EXAM: 08/14/2024 COMPARISON: CT abdomen and pelvis 02/14/2023 HISTORY: Low back pain that radiates down both legs, fibromyalgia. TECHNIQUE: Multiplanar, multisequence images of the lumbar spine were acquired without and with 4.5 mL intraveno us Gadavist gadolinium contrast. FINDINGS: Alignment: The lumbar vertebral bodies have preserved heights and alignment. Cord: The conus medullaris and the distal spinal cord appear unremarkable with regards to their signa l intensity and morphology. Bones/Discs: Bone signal is within normal limits. Incidental S2 nonenhancing Tarlov cysts. Minimal l ower lumbar spine disc desiccation. No abnormal contrast enhancement. L1-L2: No significant disc pathology. Spinal canal is patent. The neural foramen are patent. L2-L3: No significant disc pathology. Spinal canal is patent. The neural foramen are patent. There is enhancement of the dorsal root ganglion bilaterally without significant enlargement. L3-L4: No significant disc pathology. Spinal canal is patent. The neural foramen are patent. There is enhancement of the dorsal root ganglion bilaterally without significant enlargement. L4-L5: No evidence of significant central canal stenosis or disc herniation. Bilateral facet joint en largement. Mild left and minimal right neural foraminal narrowing. There is enhancement of the dorsal root ganglion bilaterally without significant enlargement. L5-S1: Small central disc protrusion with annular fissure. No significant effacement of the anterior thecal sac. Neural foramina are patent bilaterally. There is enhancement of the dorsal root ganglion bilaterally without significant enlargement. Other findings: Additional enhancement of the bilateral S1-S2 dorsal root ganglion. IMPRESSION: 1. Small L5-S1 central disc protrusion without spinal canal stenosis. 2. Bilateral L2-S2 dorsal root ganglion enhancement bilaterally without significant enlargement. Th is is nonspecific but can be seen with patient's reported history of fibromyalgia. 3. Mild bilateral facet arthropathy at L4-L5 with mild left and minimal right neural foraminal narrow ing. [facility], , 08/14/2024 4:54 PM
== END | disposition home or self-care (01) ==
LOC: RADMRIMAIN 14:17
PROVIDERS: ATTEND Family Medicine
DX: M51.27 Other intervertebral disc displacement, lumbosacral region (principal); M47.816 Spondylosis without myelopathy or radiculopathy, lumbar region; M99.73 Connective tissue and disc stenosis of intervertebral foramina of lumbar region; M79.7 Fibromyalgia
CPT/HCPCS: 72158

== ENCOUNTER → 2024-10-01 | Outpatient (CLI) | payer OTHER ==
--- NOTE | 2024-10-02 10:31 | MR ---
EXAMINATION TYPE: MR cervical spine wo con DATE OF EXAM: 10/01/2024 1:38 PM COMPARISON: None. CLINICAL INDICATION: Female, 54 years old with history of SPONDYLOSIS W/O MYELOPATHY OR RADICULOPATHY , CERVICAL REGION, Headaches, neck pain into rt arm/fingers TECHNIQUE: Multiplanar MultiSpin echo imaging of the cervical spine was performed. FINDINGS: C2-C3: No evidence for degenerative disc disease. No disc bulge/herniation or protrusion. No Canal stenosis. Foramina are patent bilaterally. C3-C4: Mild decreased signal ossified compatible degenerative disc disease. Mild posterior disc bulge without herniation or central stenosis. Neural foramina are patent. C4-C5: No evidence for degenerative disc disease. No disc bulge/herniation or protrusion. No Canal stenosis. Foramina are patent bilaterally. C5-C6: No evidence for degenerative disc disease. No disc bulge/herniation or protrusion. No Canal stenosis. Foramina are patent bilaterally. C6-C7: No evidence for degenerative disc disease. No disc bulge/herniation or protrusion. No Canal stenosis. Foramina are patent bilaterally. C7-T1: No evidence for degenerative disc disease. No disc bulge/herniation or protrusion. No Canal stenosis. Foramina are patent bilaterally. Cervical segments are intact. There is normal alignment. Cervical spinal cord is of normal signal. Craniovertebral junction relationships are within normal limits. IMPRESSION: 1. Mild degenerative disc disease and disc bulging at C3-4. [facility], , 10/02/2024 10:29 AM
== END | disposition home or self-care (01) ==
LOC: RADMRIMAIN 12:54
PROVIDERS: ATTEND Orthopaedic Surgery
DX: M47.22 Other spondylosis with radiculopathy, cervical region (principal); M50.11 Cervical disc disorder with radiculopathy, high cervical region
CPT/HCPCS: 72141

== ENCOUNTER → 2024-11-18 | Outpatient (CLI) | payer OTHER ==
[2024-11-18 12:52] VITALS: BP 107/54; PULSE 66; RESP 16; TEMP 98.3
--- NOTE | 2024-11-18 17:19 | P.PAINPG ---
PQRS Measure Charge Sheet Comment: HISTORY OF PRESENT ILLNESS: A 54 yr old female as a referral from Dr Gould presents today w severe and chronic neck pain > 3 mo secondary to radiculopathy, spondylosis and facet arthropathy without myelopathy for evaluation. Pt states pain level is provoked at 10 /10 in intensity, constant, localized in the lower cervical spine, predominantly axial, sharp in character w occasional shooting pain towards the head, shoulders and UEs. Pain is provoked by any movement. Pain is alleviated by PT x 2 wks which she is currently in, heat, ice, medications ([place] 5/325mg #60, Neurontin 100mg #90, Tyl), Cannabis, repositioning and rest . Cervical disability score at 9. PMH: OA, Asthma, Angina, CHF, COPD, Fibromyalgia, GERD, Alzheimer's Dementia, Hypothyroidism, IBS, Vitamin D Deficiency, MDD/ Anxiety/ Bipolar/ Schizophrenia PSH: EGD (2018), Colonoscopy (2021), Bladder Suspension, Cholecystectomy, Partia l Hysterectomy, R Ankle Surgery SH: Daily tobacco use, No ETOH use, Cannabis use FH: Mo- CAD, age 47. Fa- CAD, age 71 All: See list Meds: See list REVIEW OF ORGAN SYSTEMS: CONSTITUTIONAL: No fevers or chills. No recent weight loss. NEUROLOGICAL: + numbness and tingling along the distal extremities. No seizure disorders or headaches. MUSCULOSKELETAL: + pain PSYCHIATRIC: Denies current depression or suicidal thoughts. Physical Examinations : Constitutional : Cooperative , not in acute distress . Neurologic : Cranial nerve II to XII intact. No focal neurological deficits. Psychiatric : alert & oriented x 3. Matching mood & appropriate affect. Judgment & insight intact. Musculoskeletal : Cervical Spine Motor strength in the deltoid and biceps: Normal right side. Normal Left side Motor strength biceps and the wrist extensors: Normal right side . Normal left side Motor strength in the triceps muscle: Normal right side. Normal left side Deep tendon reflexes: Normal at the biceps. Normal at Brachioradialis. Normal at triceps Vertebral body tenderness to deep palpation over Cervical facet loading test: positive bilaterally C2-C3, C3-C4 Spurling test: positive bilaterally Neck distraction test: positive bilaterally [place]o sign: positive bilaterally Lumbar spine Motor strength lower extremities ,thigh and legs 5/5 Right side , 5/5 Left side Deep tendon reflexes : Normal Knee Jerk. Normal Ankle Jerk Vertebral body tenderness over Antonio Test positive Lumbar facet Loading Test: positive Right / positive Left Range of motion of the lumbar spine Flexion 30 degrees, extension 10 degrees Straight Leg Raise test: Left/ Right positive at degrees Olive test: positive right / positive left. Severe tenderness over the Sacroiliac joint on the Right / Left sides Gaenslen test: positive bilaterally Seated flexion test: positive bilaterally. Sacral spine : Severe tenderness over the Sacroiliac joint: right side / left side Range of motion: Flexion of the lumbar spine <60 degrees Range of motion: Extension of the lumbar spine <20 degrees Gaenslen's Test positive Olive test: positive right side / left side Thigh Thrust Test Sacral Thrust Test Imaging: MRI non contrast cervical spine from 10/01/24 reviewed Assessment/ Plan : C3-C4 radiculopathy Recommendation of BLAIR MBB C2-C3, C3-C4 #1. Risks, benefits of procedure discussed and patient verbalized understanding. Admits to anti- coagulant use or medical history of diabetes. Protocol for discontinuation/ continuation of medications kristine procedure discussed. Minimal anesthesia provided, if clinically indicated, consisting of Versed and Fentanyl. All questions answered. I have spent greater than 30 minutes on patient care today. Dr Warner was available by phone for the evaluation of this patient. The time was used to r eview the medical records including relevant urine studies and Prescription history (MAPs), review of the available imaging, evaluation and examination of the patient, coordination of care with the medical staff and if applicable referring physicians, as well as creation of the medical record PQRS Narrative: Smoking Status Current some day smoker Hx Alcohol Use (MH) Yes Home Medications: Ambulatory Orders ALPRAZolam [Xanax] 1 mg PO Q8H PRN 11/18/24 Acetaminophen Tab [Tylenol Tab] 500 mg PO Q6H 11/18/24 Cholecalciferol (Vitamin D3) [Vitamin D3] 5,000 mcg PO QMONTHLY 11/18/24 Dicyclomine HCl 20 mg PO TID 11/18/24 Diphenoxylate HCl/Atropine [Lomotil 2.5-0.025 mg Tablet] 2 tab PO QID PRN 11/18/24 Furosemide [Lasix] 20 mg PO QID 11/18/24 Gabapentin [Neurontin] 100 mg PO TID 11/18/24 HYDROcodone/APAP 5-325MG [[place] 5-325] 1 tab PO Q6HR PRN 11/18/24 Levothyroxine Sodium 88 mcg PO DAILY 11/18/24 Melatonin 5 mg PO HS 11/18/24 Metoprolol Succinate (ER) [Toprol Xl] 25 mg PO DAILY 11/18/24 Ondansetron Odt [Zofran Odt] 4 mg PO Q8HR PRN 11/18/24 Pantoprazole Sodium [Protonix] 20 mg PO BID 11/18/24 Pravastatin Sodium [Pravachol] 80 mg PO DAILY 11/18/24 Sertraline [Zoloft] 100 mg PO DAILY 11/18/24 Topiramate 50 mg PO BID 11/18/24 diphenhydrAMINE HCL [Benadryl Allergy] 25 mg PO DAILY 11/18/24 Controlled Substance Measures - Controlled Substance Measures Is patient prescribed a controlled substance at discharge?: No
== END ==
LOC: PNWHC3 11:57
PROVIDERS: ATTEND Specialist
DX: M54.12 Radiculopathy, cervical region (principal); G89.29 Other chronic pain; F17.210 Nicotine dependence, cigarettes, uncomplicated; Z88.5 Allergy status to narcotic agent; Z88.0 Allergy status to penicillin
CPT/HCPCS: 99211

== ENCOUNTER 2024-12-12 11:06 | Day surgery (SDC) | payer OTHER ==
[2024-12-10 11:08] VITALS: BMI 17.3
[2024-12-12] MEDS: LACTATED RINGERS 1,000 ML IV ONE (11:27)
[2024-12-12 11:39] VITALS: RESP 18; TEMP 98
[2024-12-12] MEDS: LACTATED RINGERS 1,000 ML IV SCH (11:47)
[2024-12-12] MEDS ORDERED: MIDAZOLAM 2 MG/2 ML VIAL ONE (12:33)
[2024-12-12] MEDS ORDERED: fentaNYL (PF) 50 MCG/ML 2 ML AMP ONE (12:33)
[2024-12-12] MEDS ORDERED: ROPIVACAINE 5MG/ML 20ML VIAL ONE (12:33)
--- NOTE | 2024-12-12 13:18 | P.PCN ---
Description of Procedure: Description of Procedure: Preprocedure diagnosis. Cervical facet joint arthropathy, cervical spine spondylosis, cervical degenerative disc disease. Postprocedure diagnosis. As above. Procedure done. Bilateral C2-3, C3-4 facet joint (C3,C4 medial branch of dorsal ramus and third occipital nerve) diagnostic injection with local anesthetics under fluoroscopic guidance. Anesthesia. Versed 4 mg and Fentanyl 100 microgram. Continuous pulse ox, EKG, blood pressure and verbal communication was maintained with the patient in OR. Blood loss. None. Indication. Patient has got the diagnoses of cervical spondylolysis, facet joint arthropathy with neck pain. Discussed with the patient procedure, alternatives, complications including infection, bleeding, nerve damage, paralysis all of which could be permanent. Patient understands and all questions are answered. Procedure note. After getting consent patient in OR in prone position. Back of the neck was prepped with chlorhexidine and draped in sterile fashion. After injecting 3 mL of plain 1% lidocaine subcutaneously, a 22-gauge spinal needle was introduced under tunnel vision of the fluoroscope AP view at the waist of the articular pillar (lateral mass) at C4 vertebral level. In the lateral view of the fluoroscope it was confirmed that the tip of the needle stayed within the dorsal half of the articular pillar (lateral mass). So, right C3-4 facet joint was targeted by blocking right C4 and C3 medial branch, right C2-3 facet joint was targeted by blocking right C3 medial branch and third occipital nerve. In exactly the same way , after subcutaneous injection of lidocaine, 22-gauge spinal needles were introduced under tunnel vision of the fluoroscope AP view at the waist of the articular pillars (lateral mass) at C3 vertebral level. In the lateral view of the fluoroscope it was confirmed that the tip of the needle stayed within the dorsal half of the articular pillar (lateral mass). To target third occipital nerve needle was placed at the lateral border of right C2-3 zygapophyseal joint itself. At each needle, 0.5 mL of 0.5% ropivacaine pres ervative-free was injected. In exactly same way left C2-3, C3-4 facet joints were targeted by blocking left third occipital nerve and C3, C4 medial branch of dorsal ramus. After the procedure needle was taken out and bandage was applied. Disposition. Patient tolerated the procedure well. No complication. Discharged home in stable condition.
[2024-12-12] MEDS: IV FLUID CONTINUATION 500 ML IV ONE (13:22)
[2024-12-12 14:09] VITALS: BP 114/73; PULSE 55
--- NOTE | 2024-12-12 14:10 | FL ---
EXAMINATION TYPE: FL guided pain mgmt statistic DATE OF EXAM: 12/12/2024 FLUOROSCOPY pt with cervical pain. Cervical facet block inj fl time 81.5 secs dap [id number] 2 images are submitted. [facility], , 12/12/2024 2:07 PM
== END 2024-12-12 14:20 | disposition home or self-care (01) ==
LOC: ORPAIN 11:06
PROVIDERS: ATTEND Pain Medicine Interventional Pain Medicine
DX: M47.812 Spondylosis without myelopathy or radiculopathy, cervical region (principal); M50.31 Other cervical disc degeneration, high cervical region
CPT/HCPCS: 64490; 64491; J2250; J3010; J2795; 99152; 99153

== ENCOUNTER → 2025-02-14 | Outpatient (CLI) | payer OTHER ==
--- NOTE | 2025-02-14 14:39 | CTL ---
EXAMINATION TYPE: CT Low Dose Lung DATE OF EXAM ORDERED: 02/14/2025 COMPARISON: CT chest 10/07/2019 CLINICAL INDICATION: Female, 54 years old with history of F17.210 nicotine dependence; PHH, personal tobacco use, Lung cancer screening, History of Smoking/tobacco use. TECHNIQUE: Low dose computed tomography scan was performed through the chest at 1 mm thick sections a nd reconstructed images in multiple planes at 1 mm and [address] DLP: 46.[address] CTDI: 1.3 mGy Automated exposure control for dose reduction was used. CT DIAGNOSTIC QUALITY: Satisfactory FINDINGS: Nodules: No clinically significant pulmonary nodules. LUNGS: COPD: Severity: Mild Fibrosis: Severity: None Lymph nodes: None Other findings: Similar biapical pleural-parenchymal scarring. RIGHT PLEURAL SPACE: Effusion: None Calcification: None Thickening: None Pneumothorax: None LEFT PLEURAL SPACE: Effusion: None Calcification: None Thickening: None Pneumothorax: None HEART: Heart Size: Normal Coronary Calcification: None Pericardial Effusion: None OTHER FINDINGS: Upper abdomen: Gallbladder is surgically absent. Bony thorax: None Supraclavicular region: None Other: Mild atherosclerotic calcification of the aorta and its branches. IMPRESSION: 1. No clinically significant pulmonary nodules. 2. Mild emphysematous changes. CT LUNG RAD AND CT CHEST RECOMMENDATION: Lung-Rad 1 Negative: Continue annual screening with LDCT in 12 months. S Modifier (other clinically significant findings): None [facility], , 02/14/2025 2:37 PM
== END | disposition home or self-care (01) ==
LOC: RADCTMAIN 13:33
PROVIDERS: ATTEND Internal Medicine Critical Care Medicine
DX: Z12.2 Encounter for screening for malignant neoplasm of respiratory organs (principal); F17.210 Nicotine dependence, cigarettes, uncomplicated; J43.9 Emphysema, unspecified
CPT/HCPCS: 71271